=== PATIENT | female | born 1955 | race Caucasian/White ===

== ENCOUNTER → 2016-09-28 | Outpatient (CLI) | payer BC ==
[2015-05-20 15:00] VITALS: BP 131/78
[~2016-09-28] MED LIST: ASPI81TA2 PO; ATOR40TA59 PO; ESTR0.62 PO; INSU100I27 SQ; INSU100V5 IJ; MELO-150 PO; METF500T4 PO
--- NOTE | 2016-09-28 09:08 | KCIC ---
PROCEDURE Right lower extremity venous Doppler dated 09/28/2016. HISTORY Swelling and pain right leg. TECHNIQUE Grayscale, color flow and spectral waveform analysis performed. COMPARISON None. FINDINGS Normal compressibility, phasicity and augmentation of flow throughout. No filling defects are seen. IMPRESSION No evidence of right lower extremity deep vein thrombosis. Electronically signed by: Bernabe Kaba (Sep 28, 2016 09:07:12)
== END | disposition home or self-care (01) ==
LOC: KCIC US 07:50
PROVIDERS: ATTEND Nurse Practitioner Family
DX: M79.89 Other specified soft tissue disorders (principal); M79.605 Pain in left leg; M79.604 Pain in right leg
CPT/HCPCS: 93971

== ENCOUNTER 2016-09-30 15:59 | Inpatient (IN) | payer BC ==
[~2016-09-30] VITALS: Ht 160 cm; Wt 111.1 kg
[2016-09-30] MEDS ORDERED: ONDANSETRON PF 4 MG/2 ML VIAL. IV PRN ×2 (18:00→19:00)
[2016-09-30] MEDS ORDERED: FENTANYL PF 100 MCG/2 ML VIAL. IV PRN (18:00)
--- NOTE | 2016-09-30 18:06 | PHYS DOC ---
Past Medical History Past Medical History: Depression, Diabetes-Type II Past Surgical History: Hysterectomy Additional Past Surgical Histo: L elbow, carpal tunnel L arm, L index finger lypoma, skin cancer nose, Alcohol Use: Rarely Drug Use: None Adult General Chief Complaint Chief Complaint: LOWER EXT PAIN HPI HPI 61-year-old female presenting to the emergency department today with right lower extremity pain with worsening redness swelling and warmth to touch. She had been previously seen and prescribed antibiotics. She reports a negative ultrasound which was evaluated for DVT. She states that the antibiotics helped and then her rash began to get worse even on antibiotics. She describes the pain as sharp nonradiating moderate to severe and without alleviating factors. She denies any fevers at home or chills. Review of Systems Review of Systems ROS negative for chest pain shortness of breath abdominal pain nausea vomiting fevers or chills. All other review of systems is negative unless otherwise noted in history of present illness. Current Medications Current Medications Current Medications Medications (Trade) Dose Ordered Sig/Royer Start Time Stop Time Status Last Admin Dose Admin Fentanyl Citrate 50 mcg 50 mcg PRN Q2HR PRN 09/30/16 18:00 10/01/16 17:59 Ondansetron HCl (Zofran) 4 mg PRN Q8HRS PRN 09/30/16 18:00 10/01/16 17:59 Vancomycin HCl (Vanco Per Pharmacy) 1 each PRN DAILY PRN 09/30/16 18:00 UNV Vancomycin HCl/ Sodium Chloride (Iv Sodium Chloride 0.9% 500ml Bag) 500 ml @ 250 mls/hr 1X ONCE 09/30/16 18:30 09/30/16 20:29 Allergies Allergies Allergies Coded Allergies Type Severity Reaction Last Updated Verified morphine Allergy Mild hallucinations 05/19/15 No Physical Exam Physical Exam Constitutional: Well developed, well nourished, no acute distress, non-toxic appearance. HENT: Normocephalic, atraumatic, bilateral external ears normal, oropharynx moist, no oral exudates, nose normal. [] Eyes: PERRLA, EOMI, conjunctiva normal, no discharge. [] Neck: Normal range of motion, no tenderness, supple, no stridor. Cardiovascular:Heart rate regular rhythm, no murmur [] Lungs & Thorax: Bilateral breath sounds clear to auscultation [] Abdomen: Bowel sounds normal, soft, no tenderness, no masses, no pulsatile masses. Skin: Warm, dry, no erythema, no rash. [] Back: No tenderness, no CVA tenderness. [] Extremities: The patient's right lower extremity is warm and well perfused with palpable pulse. Normal neurovascular status present. 2 second cap refill. She has a cellulitis around the right lower leg which is warm to touch and has swelling of the lower extremity. Nontender along the venous system. Neurologic: Alert and oriented X 3, normal motor function, normal sensory function, no focal deficits noted. [] Psychologic: Affect normal, judgement normal, mood normal. [] Current Patient Data Vital Signs Vital Signs Date Time Temp Pulse Resp B/P Pulse Ox O2 Delivery O2 Flow Rate FiO2 09/30/16 17:26 98.1 77 18 188/89 97 Room Air 98.1 EKG EKG [] Radiology/Procedures Radiology/Procedures [] Course & Med Decision Making Course & Med Decision Making Pertinent Labs and Imaging studies reviewed. (See chart for details) 61-year-old female presenting to the emergency department today with worsening redness and rash recently prescribed antibiotics for acute cellulitis. She reported a negative ultrasound at an outpatient facility. She reports even on antibiotics getting worse. On evaluation here her vital signs were unremarkable. Physical exam showed acute cellulitis of the right lower extremity. Given the patient's refraction to antibiotics orally the patient was given IV vancomycin on ultrasound was ordered and an MRI of the tibia-fibula to evaluate for possible underlying osteomyelitis. The patient was then admitted for further evaluation workup and care. Dragon Disclaimer Dragon Disclaimer This electronic medical record was generated, in whole or in part, using a voice recognition dictation system. Departure Departure Impression: Primary Impression: Cellulitis of right lower leg Additional Impression: Failure of outpatient treatment Disposition: ADMITTED INPATIENT Condition: STABLE Referrals: RODRIGUEZ CARL APRN (PCP) Problem Qualifiers JAQUELIN SHANKAR MD Sep 30, 2016 18:06
[2016-09-30] MEDS ORDERED: VANCOMYCIN 2 GM in IV NORMAL SALINE 500ML BAG 500 ML IV ONE (18:30)
[2016-09-30 18:51] LABS: BASO # 0.1 x10^3/uL (0.0-0.2); BASO % 1 % (0-3); EOS % 7 % (0-3); HEMATOCRIT 39.9 % (36.0-47.0); HEMOGLOBIN 13.3 g/dL (12.0-15.5); LYMPH # 2.8 x10^3/uL (1.0-4.8); LYMPH % 43 % (24-48); MEAN CORPUSCULAR HEMOGLOBIN 28 pg (25-35); MEAN CORPUSCULAR HGB CONC 33 g/dL (31-37); MEAN CORPUSCULAR VOLUME 84 fL (79-100); MONO % 6 % (0-9); NEUT % 44 % (31-73); PLATELET COUNT 148 x10^3/uL (140-400); RED BLOOD COUNT 4.75 x10^6/uL (3.50-5.40); RED CELL DISTRIBUTION WIDTH 13.8 % (11.5-14.5); WHITE BLOOD COUNT 6.5 x10^3/uL (4.0-11.0)
[2016-09-30] MEDS ORDERED: DEXTROSE 50% 25 GM / 50ML DISP.SYRIN. IV PRN (19:00)
[2016-09-30 19:02] LABS: CALCIUM 8.8 mg/dL (8.5-10.1); CREATININE 0.5 mg/dL (0.6-1.0); GFR 125.4; POTASSIUM 3.9 mmol/L (3.5-5.1)
[2016-09-30 19:04] LABS: C-REACTIVE PROTEIN 4.5 mg/L (0-3.3)
--- NOTE | 2016-09-30 19:06 | PDOC1 ---
History and Physical Date of Admission Date of Admission 09/30/16 Identification/Chief Complaint Chief Complaint bl leg pain Problems: Source Source: Chart review, Patient History of Present Illness History of Present Illness HPI HPI 61-year-old female presenting to the emergency department today with right lower extremity pain. Pt has been having bl legs cellulitis for 2 months, now left leg much better, but right leg swollen , more pain, redness is better. She took keflex 2 times ( each time 1w to 10ds), it worked well for 1st time, but as per pt, she took keflex bid. no fever, chills, + nausea. had DVt checked , neg. She states that the antibiotics helped and then her rash began to get worse even on antibiotics. Past Medical History Cardiovascular: HTN, Hyperlipidemia CENTRAL NERVOUS SYSTEM: Other GI: No pertinent hx Heme/Onc: No pertinent hx Hepatobiliary: No pertinent hx Psych: Anxiety Infectious disease: No pertinent hx Renal/: No pertinent hx Endocrine: Diabetes Past Surgical History Past Surgical History: Tubal Ligation, Hysterectomy, Other Family History Family History: Hypertension Social History Smoke: No ALCOHOL: none Drugs: None Current Problem List Problem List Problems Medical Problems: (1) Cellulitis of right lower leg Status: Acute (2) Failure of outpatient treatment Status: Acute Current Medications Current Medications Current Medications Medications (Trade) Dose Ordered Sig/Royer Start Time Stop Time Status Last Admin Dose Admin Aspirin (Children'S Aspirin) 81 mg DAILY 10/01/16 09:00 UNV Atorvastatin Calcium (Lipitor) 40 mg DAILY 10/01/16 09:00 UNV Fentanyl Citrate 50 mcg 50 mcg PRN Q2HR PRN 09/30/16 18:00 10/01/16 17:59 09/30/16 18:33 50 MCG Insulin Detemir (Levemir) 15 units HS 09/30/16 21:00 UNV Metformin HCl (Glucophage) 500 mg BID 09/30/16 21:00 UNV Ondansetron HCl (Zofran) 4 mg PRN Q8HRS PRN 09/30/16 18:00 10/01/16 17:59 09/30/16 18:31 4 MG Vancomycin HCl (Vanco Per Pharmacy) 1 each PRN DAILY PRN 09/30/16 18:00 UNV Vancomycin HCl/ Sodium Chloride (Iv Sodium Chloride 0.9% 500ml Bag) 500 ml @ 250 mls/hr 1X ONCE 09/30/16 18:30 09/30/16 20:29 09/30/16 18:36 250 MLS/HR Allergies Allergies Allergies Coded Allergies Type Severity Reaction Last Updated Verified morphine Allergy Mild hallucinations 05/19/15 No ROS Review of System CONSTITUTIONAL: No fever or chills EYES: No recent changes SKIN: No rash or itching CARDIOVASCULAR: No chest pain, syncope, palpitations, or edema RESPIRATORY: No SOB or cough GASTROINTESTINAL: No nausea, vomiting or abdominal pain NEUROLOGICAL: No headaches or weakness ENDOCRINE: No cold or heat intolerance GENITOURINARY: No urgency or frequency of urination MUSCULOSKELETAL: No back pain or joint pain LYMPHATICS: No enlarged lymph nodes PSYCHIATRIC: No anxiety or depression Physical Exam Physical Exam GEN.: No apparent distress. Alert and oriented. HEENT: Head is normocephalic, atraumatic NECK: Supple. LUNGS: Clear to auscultation. HEART: RRR, S1, S2 present. Peripheral pulses intact ABDOMEN: Soft, nontender. Positive bowel sounds. EXTREMITIES: Without any cyanosis. left leg mild redness. Right leg severe swollen, mild erythematous, with tenderness. NEUROLOGIC: Normal speech, normal tone PSYCHIATRIC: Normal affect, normal mood. SKIN: No ulcerations Vitals Vitals Vital Signs Date Time Temp Pulse Resp B/P Pulse Ox O2 Delivery O2 Flow Rate FiO2 09/30/16 18:33 20 96 Room Air 09/30/16 17:26 98.1 77 188/89 98.1 Labs Labs Laboratory Tests Test 09/30/16 18:40 White Blood Count 6.5x10^3/uL (4.0-11.0) Red Blood Count 4.75x10^6/uL (3.50-5.40) Hemoglobin 13.3g/dL (12.0-15.5) Hematocrit 39.9% (36.0-47.0) Mean Corpuscular Volume 84fL (79-100) Mean Corpuscular Hemoglobin 28pg (25-35) Mean Corpuscular Hemoglobin Concent 33g/dL (31-37) Red Cell Distribution Width 13.8% (11.5-14.5) Platelet Count 148x10^3/uL (140-400) Neutrophils (%) (Auto) 44% (31-73) Lymphocytes (%) (Auto) 43% (24-48) Monocytes (%) (Auto) 6% (0-9) Eosinophils (%) (Auto) 7% (0-3) Basophils (%) (Auto) 1% (0-3) Neutrophils # (Auto) 2.9x10^3uL (1.8-7.7) Lymphocytes # (Auto) 2.8x10^3/uL (1.0-4.8) Monocytes # (Auto) 0.4x10^3/uL (0.0-1.1) Eosinophils # (Auto) 0.4x10^3/uL (0.0-0.7) Basophils # (Auto) 0.1x10^3/uL (0.0-0.2) Laboratory Tests Test 09/30/16 18:40 White Blood Count 6.5x10^3/uL (4.0-11.0) Red Blood Count 4.75x10^6/uL (3.50-5.40) Hemoglobin 13.3g/dL (12.0-15.5) Hematocrit 39.9% (36.0-47.0) Mean Corpuscular Volume 84fL (79-100) Mean Corpuscular Hemoglobin 28pg (25-35) Mean Corpuscular Hemoglobin Concent 33g/dL (31-37) Red Cell Distribution Width 13.8% (11.5-14.5) Platelet Count 148x10^3/uL (140-400) Neutrophils (%) (Auto) 44% (31-73) Lymphocytes (%) (Auto) 43% (24-48) Monocytes (%) (Auto) 6% (0-9) Eosinophils (%) (Auto) 7% (0-3) Basophils (%) (Auto) 1% (0-3) Neutrophils # (Auto) 2.9x10^3uL (1.8-7.7) Lymphocytes # (Auto) 2.8x10^3/uL (1.0-4.8) Monocytes # (Auto) 0.4x10^3/uL (0.0-1.1) Eosinophils # (Auto) 0.4x10^3/uL (0.0-0.7) Basophils # (Auto) 0.1x10^3/uL (0.0-0.2) VTE Prophylaxis Ordered VTE Prophylaxis Devices: Yes VTE Pharmacological Prophylaxi: Yes Assessment/Plan Assessment/Plan 1. right leg cellulitis, failed outside po treatment 2. dm2 3. htn 4. depression 5. obesity, bmi 37. plan: 1. id consult 2. got vanco in ER, add merropenum 3. cont home meds levemir 15u qhs, ssi 4. labs pending bcx done dvt ppx pain control. side affect to morphine with hallucination. leg MRI pending PTOT JOSÉ PAREDES MD Sep 30, 2016 19:06
[2016-09-30] MEDS ORDERED: MEROPENEM 500 MG in IV NORMAL SALINE 50ML 50 ML IV ONE (19:15)
[2016-09-30] MEDS: VANCOMYCIN PER PHARMACY MC PRN ×2 (20:03→20:16)
--- NOTE | 2016-09-30 20:12 | ACF ---
Admission Forms Criteria CELLULITIS Clinical Indications for Admission to Inpatient Care (Place 'X' for any and all applicable criteria): Admission is indicated for ANY ONE of the following(1)(2)(3)(4)(5): [ ]I. Limb-threatening infection [ ]II. High-risk comorbid condition as indicated by ANY ONE of the following: [ ]a) Uncontrolled diabetes (eg, HbA1c greater than 10% (0.1)) [ ]b) Cirrhosis [ ]c) Neutropenia [ ]d) Asplenia [ ]e) Immunosuppression [ ]f) Symptomatic heart failure [ ]III. Failure of outpatient therapy as indicated by ALL of the following: [ ]a) Progression or no improvement after adequate trial (minimum of 48 hours, with longer period for stable lower extremity infection) [ ]b) Adequate antibiotic regimen as indicated by use of ANY ONE of the following: [ ]i) First-generation cephalosporin (e.g., cephalexin) [ ]ii) Antistaphylococcal penicillin (e.g., dicloxacillin) [ ]iii) Penicillin-allergic patient regimen (clindamycin, extended-spectrum fluoroquinolone, or doxycycline) [ ]iv) Resistant organism (eg, methicillin-resistant Staphylococcus aureus) regimen (6) [ ]c) Outpatient intravenous therapy regimen is not appropriate due to ANY ONE of the following. (7)(8)(9)(10): [ ]i) It was tried and was not successful (eg, progression of infection). [ ]ii) It is not available or cannot be arranged in a clinically appropriate time frame (e.g., the next day). [ ]iii) Clinical presentation (eg, acuity of infection, rapidity of progression, confirmed or suspected bacteremia) is judged to require ALL of the following: [ ]1) Immediate initiation of intravenous therapy ( eg, cannot wait for next day) [ ]2) Intensity of patient monitoring and observation (eg, vital sign measurement, checks for infection progression) that cannot be provided at other than inpatient level of care [ ]IV. Mental status changes [ ]V. Bacteremia [ ]. Hemodynamic instability [ ]VII. Suspected necrotizing soft tissue infection (e.g., gas in tissue)(11)( 12) [ ]VIII. Orbital infection (13)(14) [ ]IX. Associated surgical procedure (e.g., abscess drainage, debridement) not amenable to outpatient, emergency department, or observation care [ ]X. Cutaneous gangrene [ ]XI. High fever (temperature greater than 39.5 degrees C (103.1 degrees F) (oral)) not responsive to outpatient, emergency department, or observation care therapy [ X]XIII. Inpatient admission required rather than observation care (Also use Cellulitis: Observation Care as appropriate) because of ANY ONE of the following : [ ]a) Periorbital or perineal infection that is severe or worsening [X ]b) Severe pain requiring acute inpatient management [ ]c) IV fluid to replace significant ongoing (e.g., for over 24 hours) losses (greater than 3L/m2 per day) [ ]d) Compartment syndrome monitoring (17) [ ]e) Strict or protective (eg, laminar flow) isolation [ ]f) Urgent debridement or skin grafting [ ]g) Bone or joint debridement [ ]h) Immediate inpatient surgery [ ]i) Other condition, treatment or monitoring requiring inpatient admission Extended stay beyond goal length of stay may be needed for (1)(18): [ ]a) Necrotizing soft tissue infection or fasciitis [ ]b) Gram-negative infection [ ]c) Methicillin-resistant Staphylococcal aureus (MRSA) infection [ ]d) Peripheral venous insufficiency with cellulitis [ ]e) Extensive edema [ ]f) Sepsis or continued Hemodynamic instability [ ]g) Continued high fever or mental status change [ ]h) Bacteremia [ ]i) Active serious comorbid conditions ( eg, heart failure, renal insufficiency) The original [facility] content created by [employer] has been revised. The portions of the content which have been revised are identified through the use of italic text or in bold, and [facility] has neither reviewed nor approved the modified material. All other unmodified content is copyright [email or web address] Please see references footnoted in the original [facility] edition 2016 Admission Criteria Met?: Yes JAMIL DALY Sep 30, 2016 20:12
[2016-09-30] MEDS: METFORMIN 500 MG TABLET. PO SCH (21:58)
[2016-09-30] MEDS: OXYCODONE IR 5 MG TABLET. PO PRN (21:59)
[2016-09-30] MEDS: ATORVASTATIN CALCIUM 40 MG TABLET. PO SCH (21:59)
[2016-09-30] MEDS: INSULIN DETEMIR 300 UNITS/3 ML INSULN.PEN. SQ SCH (22:03)
[2016-09-30 22:30] VITALS: BP 126/68
[2016-10-01] MEDS: HYDROMORPHONE 2 MG/ML VIAL. IV PRN (01:27)
[2016-10-01 03:00] VITALS: BP 129/73
[2016-10-01 04:48] LABS: BASO % 1 % (0-3); EOS % 6 % (0-3); HEMATOCRIT 40.5 % (36.0-47.0); HEMOGLOBIN 13.3 g/dL (12.0-15.5); LYMPH # 1.8 x10^3/uL (1.0-4.8); LYMPH % 29 % (24-48); MEAN CORPUSCULAR HEMOGLOBIN 28 pg (25-35); MEAN CORPUSCULAR HGB CONC 33 g/dL (31-37); MEAN CORPUSCULAR VOLUME 84 fL (79-100); MONO % 6 % (0-9); NEUT % 59 % (31-73); PLATELET COUNT 136 x10^3/uL (140-400); RED BLOOD COUNT 4.82 x10^6/uL (3.50-5.40); RED CELL DISTRIBUTION WIDTH 13.4 % (11.5-14.5); WHITE BLOOD COUNT 6.2 x10^3/uL (4.0-11.0)
[2016-10-01 05:21] LABS: CALCIUM 8.5 mg/dL (8.5-10.1); CREATININE 0.5 mg/dL (0.6-1.0); GFR 125.4; POTASSIUM 4.2 mmol/L (3.5-5.1)
[2016-10-01] MEDS: MEROPENEM 500 MG in IV NORMAL SALINE 50ML 50 ML IV SCH ×3 (05:59→21:09)
[2016-10-01] MEDS: VANCOMYCIN 1.5 GM in IV NORMAL SALINE 500ML BAG 500 ML IV SCH ×2 (06:00→17:43)
[2016-10-01] MEDS: OXYCODONE IR 5 MG TABLET. PO PRN ×3 (06:39→18:01)
[2016-10-01 07:00] VITALS: BP 103/54
[2016-10-01] MEDS: METFORMIN 500 MG TABLET. PO SCH ×2 (09:25→17:42)
[2016-10-01] MEDS: ACETAMINOPHEN 325 MG TABLET. PO PRN ×2 (09:25→17:59)
[2016-10-01] MEDS: ASPIRIN 81 MG TAB.CHEW PO SCH (09:25)
[2016-10-01] MEDS: INSULIN ASPART 300 UNITS/3 ML INSULN.PEN SQ SCH ×3 (09:30→17:51)
[2016-10-01 11:00] VITALS: BP 119/71
--- NOTE | 2016-10-01 11:29 | PDOC ---
PROGRESS NOTES Chief Complaint Chief Complaint 1. right leg cellulitis, failed outside po treatment 2. dm2 3. htn 4. depression 5. obesity, bmi 37. History of Present Illness History of Present Illness Pt seen and examined VSS TAMELA RN Vitals Vitals Vital Signs Date Time Temp Pulse Resp B/P Pulse Ox O2 Delivery O2 Flow Rate FiO2 10/01/16 11:00 97.9 83 14 119/71 96 Room Air 97.9 Physical Exam General: Alert, Oriented X3, Cooperative Heart: Regular rate, Normal S1, Normal S2 Lungs: Clear, Wheezing Abdomen: Normal bowel sounds, Soft Extremities: Other (Both LE with cellulitis) Skin: No breakdown Labs LABS Laboratory Tests Test 09/30/16 18:40 09/30/16 21:13 10/01/16 04:15 10/01/16 07:46 White Blood Count 6.5x10^3/uL (4.0-11.0) 6.2x10^3/uL (4.0-11.0) Red Blood Count 4.75x10^6/uL (3.50-5.40) 4.82x10^6/uL (3.50-5.40) Hemoglobin 13.3g/dL (12.0-15.5) 13.3g/dL (12.0-15.5) Hematocrit 39.9% (36.0-47.0) 40.5% (36.0-47.0) Mean Corpuscular Volume 84fL (79-100) 84fL (79-100) Mean Corpuscular Hemoglobin 28pg (25-35) 28pg (25-35) Mean Corpuscular Hemoglobin Concent 33g/dL (31-37) 33g/dL (31-37) Red Cell Distribution Width 13.8% (11.5-14.5) 13.4% (11.5-14.5) Platelet Count 148x10^3/uL (140-400) 136x10^3/uL (140-400) Neutrophils (%) (Auto) 44% (31-73) 59% (31-73) Lymphocytes (%) (Auto) 43% (24-48) 29% (24-48) Monocytes (%) (Auto) 6% (0-9) 6% (0-9) Eosinophils (%) (Auto) 7% (0-3) 6% (0-3) Basophils (%) (Auto) 1% (0-3) 1% (0-3) Neutrophils # (Auto) 2.9x10^3uL (1.8-7.7) 3.7x10^3uL (1.8-7.7) Lymphocytes # (Auto) 2.8x10^3/uL (1.0-4.8) 1.8x10^3/uL (1.0-4.8) Monocytes # (Auto) 0.4x10^3/uL (0.0-1.1) 0.4x10^3/uL (0.0-1.1) Eosinophils # (Auto) 0.4x10^3/uL (0.0-0.7) 0.3x10^3/uL (0.0-0.7) Basophils # (Auto) 0.1x10^3/uL (0.0-0.2) 0.0x10^3/uL (0.0-0.2) Erythrocyte Sedimentation Rate 8 (0-25) Sodium Level 137mmol/L (136-145) 135mmol/L (136-145) Potassium Level 3.9mmol/L (3.5-5.1) 4.2mmol/L (3.5-5.1) Chloride Level 101mmol/L (98-107) 101mmol/L (98-107) Carbon Dioxide Level 29mmol/L (21-32) 27mmol/L (21-32) Anion Gap 7 (6-14) 7 (6-14) Blood Urea Nitrogen 12mg/dL (7-20) 11mg/dL (7-20) Creatinine 0.5mg/dL (0.6-1.0) 0.5mg/dL (0.6-1.0) Estimated GFR (Cockcroft-Gault) 125.4 125.4 Glucose Level 267mg/dL (70-99) 327mg/dL (70-99) Calcium Level 8.8mg/dL (8.5-10.1) 8.5mg/dL (8.5-10.1) C-Reactive Protein, Quantitative 4.5mg/L (0-3.3) Glucose (Fingerstick) 243mg/dL (70-99) 294mg/dL (70-99) Review of Systems Review of Systems co leg rash co weakness Assessment and Plan Assessmemt and Plan Problems Medical Problems: (1) Cellulitis of right lower leg Status: Acute (2) Failure of outpatient treatment Status: Acute 1. right leg cellulitis, failed outside po treatment 2. dm2 3. htn 4. depression 5. obesity, bmi 37. plan: 1. id consult 2. got vanco in ER, add merropenum 3. cont home meds levemir 15u qhs, ssi 4. labs pending bcx done dvt ppx pain control. side affect to morphine with hallucination. leg MRI pending PTOT Problems: Comment Review of Relevant I have reviewed the following items kota (where applicable) has been applied. Labs Laboratory Tests Test 09/30/16 18:40 09/30/16 21:13 10/01/16 04:15 10/01/16 07:46 White Blood Count 6.5x10^3/uL (4.0-11.0) 6.2x10^3/uL (4.0-11.0) Red Blood Count 4.75x10^6/uL (3.50-5.40) 4.82x10^6/uL (3.50-5.40) Hemoglobin 13.3g/dL (12.0-15.5) 13.3g/dL (12.0-15.5) Hematocrit 39.9% (36.0-47.0) 40.5% (36.0-47.0) Mean Corpuscular Volume 84fL (79-100) 84fL (79-100) Mean Corpuscular Hemoglobin 28pg (25-35) 28pg (25-35) Mean Corpuscular Hemoglobin Concent 33g/dL (31-37) 33g/dL (31-37) Red Cell Distribution Width 13.8% (11.5-14.5) 13.4% (11.5-14.5) Platelet Count 148x10^3/uL (140-400) 136x10^3/uL (140-400) Neutrophils (%) (Auto) 44% (31-73) 59% (31-73) Lymphocytes (%) (Auto) 43% (24-48) 29% (24-48) Monocytes (%) (Auto) 6% (0-9) 6% (0-9) Eosinophils (%) (Auto) 7% (0-3) 6% (0-3) Basophils (%) (Auto) 1% (0-3) 1% (0-3) Neutrophils # (Auto) 2.9x10^3uL (1.8-7.7) 3.7x10^3uL (1.8-7.7) Lymphocytes # (Auto) 2.8x10^3/uL (1.0-4.8) 1.8x10^3/uL (1.0-4.8) Monocytes # (Auto) 0.4x10^3/uL (0.0-1.1) 0.4x10^3/uL (0.0-1.1) Eosinophils # (Auto) 0.4x10^3/uL (0.0-0.7) 0.3x10^3/uL (0.0-0.7) Basophils # (Auto) 0.1x10^3/uL (0.0-0.2) 0.0x10^3/uL (0.0-0.2) Erythrocyte Sedimentation Rate 8 (0-25) Sodium Level 137mmol/L (136-145) 135mmol/L (136-145) Potassium Level 3.9mmol/L (3.5-5.1) 4.2mmol/L (3.5-5.1) Chloride Level 101mmol/L (98-107) 101mmol/L (98-107) Carbon Dioxide Level 29mmol/L (21-32) 27mmol/L (21-32) Anion Gap 7 (6-14) 7 (6-14) Blood Urea Nitrogen 12mg/dL (7-20) 11mg/dL (7-20) Creatinine 0.5mg/dL (0.6-1.0) 0.5mg/dL (0.6-1.0) Estimated GFR (Cockcroft-Gault) 125.4 125.4 Glucose Level 267mg/dL (70-99) 327mg/dL (70-99) Calcium Level 8.8mg/dL (8.5-10.1) 8.5mg/dL (8.5-10.1) C-Reactive Protein, Quantitative 4.5mg/L (0-3.3) Glucose (Fingerstick) 243mg/dL (70-99) 294mg/dL (70-99) Laboratory Tests Test 09/30/16 18:40 09/30/16 21:13 10/01/16 04:15 10/01/16 07:46 White Blood Count 6.5x10^3/uL (4.0-11.0) 6.2x10^3/uL (4.0-11.0) Red Blood Count 4.75x10^6/uL (3.50-5.40) 4.82x10^6/uL (3.50-5.40) Hemoglobin 13.3g/dL (12.0-15.5) 13.3g/dL (12.0-15.5) Hematocrit 39.9% (36.0-47.0) 40.5% (36.0-47.0) Mean Corpuscular Volume 84fL (79-100) 84fL (79-100) Mean Corpuscular Hemoglobin 28pg (25-35) 28pg (25-35) Mean Corpuscular Hemoglobin Concent 33g/dL (31-37) 33g/dL (31-37) Red Cell Distribution Width 13.8% (11.5-14.5) 13.4% (11.5-14.5) Platelet Count 148x10^3/uL (140-400) 136x10^3/uL (140-400) Neutrophils (%) (Auto) 44% (31-73) 59% (31-73) Lymphocytes (%) (Auto) 43% (24-48) 29% (24-48) Monocytes (%) (Auto) 6% (0-9) 6% (0-9) Eosinophils (%) (Auto) 7% (0-3) 6% (0-3) Basophils (%) (Auto) 1% (0-3) 1% (0-3) Neutrophils # (Auto) 2.9x10^3uL (1.8-7.7) 3.7x10^3uL (1.8-7.7) Lymphocytes # (Auto) 2.8x10^3/uL (1.0-4.8) 1.8x10^3/uL (1.0-4.8) Monocytes # (Auto) 0.4x10^3/uL (0.0-1.1) 0.4x10^3/uL (0.0-1.1) Eosinophils # (Auto) 0.4x10^3/uL (0.0-0.7) 0.3x10^3/uL (0.0-0.7) Basophils # (Auto) 0.1x10^3/uL (0.0-0.2) 0.0x10^3/uL (0.0-0.2) Erythrocyte Sedimentation Rate 8 (0-25) Sodium Level 137mmol/L (136-145) 135mmol/L (136-145) Potassium Level 3.9mmol/L (3.5-5.1) 4.2mmol/L (3.5-5.1) Chloride Level 101mmol/L (98-107) 101mmol/L (98-107) Carbon Dioxide Level 29mmol/L (21-32) 27mmol/L (21-32) Anion Gap 7 (6-14) 7 (6-14) Blood Urea Nitrogen 12mg/dL (7-20) 11mg/dL (7-20) Creatinine 0.5mg/dL (0.6-1.0) 0.5mg/dL (0.6-1.0) Estimated GFR (Cockcroft-Gault) 125.4 125.4 Glucose Level 267mg/dL (70-99) 327mg/dL (70-99) Calcium Level 8.8mg/dL (8.5-10.1) 8.5mg/dL (8.5-10.1) C-Reactive Protein, Quantitative 4.5mg/L (0-3.3) Glucose (Fingerstick) 243mg/dL (70-99) 294mg/dL (70-99) Medications Current Medications Vancomycin HCl (Vanco Per Pharmacy) 1 each PRN DAILY PRN MC SEE COMMENTS Last administered on 09/30/16t 20:16; Start 09/30/16 at 18:00 Ondansetron HCl (Zofran) 4 mg PRN Q8HRS PRN IV NAUSEA/VOMITING Last administered on 09/30/16 18:31; Start 09/30/16 at 18:00; Stop 10/01/16 at 17:59 Fentanyl Citrate 50 mcg 50 mcg PRN Q2HR PRN IV PAIN Last administered on 18:33; Start 09/30/16 at 18:00; Stop 10/01/16 at 17:59 Vancomycin HCl/ Sodium Chloride (Iv Sodium Chloride 0.9% 500ml Bag) 500 ml @ 250 mls/hr 1X ONCE IV Last administered on 09/30/16 18:36; Start 09/30/16 at 18:30; Stop 09/30/16 at 20:29; Status DC Aspirin (Children'S Aspirin) 81 mg DAILY PO Last administered on 10/01/16 09: 25; Start 10/01/16 at 09:00 Atorvastatin Calcium (Lipitor) 40 mg QHS PO Last administered on 09/30/16 21: 59; Start 09/30/16 at 21:00 Insulin Detemir (Levemir) 15 units HS SQ Last administered on 09/30/16 22:03; Start 09/30/16 at 21:00 Metformin HCl 500 mg 500 mg BIDWMEALS PO Last administered on 10/01/16 09:25; Start 09/30/16 at 21:00 Meropenem/Sodium Chloride (Merrem/Iv Sodium Chloride 0.9% 50ml) 50 ml @ 100 mls /hr Q8HRS IV Last administered on 10/01/16 05:59; Start 10/01/16 at 06:00 Acetaminophen (Tylenol) 650 mg PRN Q6HRS PRN PO FEVER Last administered on 10/01 09:25; Start 09/30/16 at 19:00 Ondansetron HCl (Zofran) 4 mg PRN Q4HRS PRN IV NAUSEA/VOMITING; Start 09/30/16 at 19:00 Oxycodone HCl (Roxicodone) 5 mg PRN Q4HRS PRN PO PAIN Last administered on 10/01 06:39; Start 09/30/16 at 19:00 Hydromorphone HCl (Dilaudid) 1 mg PRN Q4HRS PRN IV PAIN Last administered on 01:27; Start 09/30/16 at 19:00 Insulin Aspart (Novolog) 0-9 UNITS TIDWMEALS SQ Last administered on 10/01/16 09:30; Start 10/01/16 at 08:00 Dextrose 12.5 gm 12.5 gm PRN Q15MIN PRN IV SEE COMMENTS; Start 09/30/16 at 19: 00 Meropenem 500 mg/ Sodium Chloride 50 ml @ 100 mls/hr 1X ONCE IV Last administered on 09/30/16 21:58; Start 09/30/16 at 19:15; Stop 09/30/16 at 19:44 ; Status DC Vancomycin HCl/ Sodium Chloride (Iv Sodium Chloride 0.9% 500ml Bag) 500 ml @ 250 mls/hr Q12H IV Last administered on 10/01/16 06:00; Start 10/01/16 at 06: 00 Vancomycin HCl 1 each 1X ONCE MC ; Start 10/02/16 at 05:30; Stop 10/02/16 at 05 :31 Active Scripts Active Reported Levemir Flextouch (Insulin Detemir) 100 Unit/1 Ml Insuln.pen 15 Unit SQ HS Metformin Hcl 500 Mg Tablet 2 Tab PO BID Premarin (Estrogens, Conjugated) 0.625 Mg Tablet 1 Tab PO DAILY Meloxicam 15 Mg Tablet 1 Tab PO DAILY Atorvastatin Calcium 40 Mg Tablet 1 Tab PO DAILY Vitals/I & O Vital Sign - Last 24 Hours 09/30/16 09/30/16 09/30/16 09/30/16 17:26 18:14 18:33 18:44 Temp 98.1 98.1 Pulse 77 76 80 Resp 18 20 B/P 188/89 191/86 191/106 Pulse Ox 97 97 96 95 O2 Delivery Room Air Room Air Room Air Room Air 09/30/16 09/30/16 09/30/16 09/30/16 19:03 19:14 19:44 21:59 Pulse 78 74 Resp 18 B/P 163/73 157/72 Pulse Ox 95 94 95 95 O2 Delivery Room Air Room Air Room Air 09/30/16 10/01/16 10/01/16 10/01/16 22:30 01:27 01:57 03:00 Temp 97.5 96.1 97.5 96.1 Pulse 76 85 Resp 20 24 18 B/P 126/68 129/73 Pulse Ox 94 94 94 96 O2 Delivery Room Air Room Air 10/01/16 10/01/16 10/01/16 10/01/16 06:39 07:00 07:39 11:00 Temp 100.2 97.9 100.2 97.9 Pulse 92 83 Resp 14 20 14 B/P 103/54 119/71 Pulse Ox 96 96 96 96 O2 Delivery Room Air Room Air Room Air Intake and Output 09/30/16 09/30/16 10/01/16 15:00 23:00 07:00 Intake Total 1210 ml Balance 1210 ml SHARON DYKES III DO Oct 01, 2016 11:29
[2016-10-01 15:00] VITALS: BP 134/73
[2016-10-01] MEDS ORDERED: GADOBUTROL 10 MMOL/10 ML VIAL IV ONE (16:45)
[2016-10-01 19:00] VITALS: BP 112/64
[2016-10-01] MEDS: ATORVASTATIN CALCIUM 40 MG TABLET. PO SCH (21:09)
[2016-10-01] MEDS: INSULIN DETEMIR 300 UNITS/3 ML INSULN.PEN. SQ SCH (21:12)
[2016-10-01 23:00] VITALS: BP 142/76
[2016-10-02] MEDS: HYDROMORPHONE 2 MG/ML VIAL. IV PRN (02:19)
[2016-10-02 02:52] VITALS: BP 155/80
[2016-10-02] MEDS: OXYCODONE IR 5 MG TABLET. PO PRN (05:20)
[2016-10-02] MEDS: MEROPENEM 500 MG in IV NORMAL SALINE 50ML 50 ML IV SCH ×2 (05:21→16:05)
[2016-10-02 07:00] VITALS: BP 160/83
[2016-10-02] MEDS: VANCOMYCIN 1.5 GM in IV NORMAL SALINE 500ML BAG 500 ML IV SCH (08:05)
[2016-10-02] MEDS: INSULIN ASPART 300 UNITS/3 ML INSULN.PEN SQ SCH ×2 (08:13→12:33)
[2016-10-02] MEDS: METFORMIN 500 MG TABLET. PO SCH (08:28)
[2016-10-02] MEDS: ACETAMINOPHEN 325 MG TABLET. PO PRN ×2 (08:28→16:15)
[2016-10-02] MEDS: ASPIRIN 81 MG TAB.CHEW PO SCH (08:28)
[2016-10-02] MEDS: VANCOMYCIN PER PHARMACY MC PRN (08:44)
--- NOTE | 2016-10-02 09:57 | RAD ---
MR of the right calf with gadolinium, 10/01/2016: History: Cellulitis Imaging was performed in axial, coronal and sagittal planes utilizing a variety of imaging sequences including T1-weighted, fat-suppressed T2 weighted and fat-suppressed T1-weighted sequences following IV injection of 10 cc of the Gadavist contrast agent. A marker was placed on the skin surface over the most prominent area of clinical concern medially. There is subcutaneous edema throughout the right lower leg which is most prominent medially. There is streaky postcontrast enhancement in this region. No discrete fluid collection is seen to suggest abscess. No deep extension of this inflammatory process into the musculature is seen. The signal intensity within the gastrocnemius and soleus muscles is abnormal in a pattern indicating extensive fatty infiltration. The anterior musculature is somewhat atrophic but demonstrates a more normal signal intensity. No abnormal signal or enhancement is seen in the visualized portions of the tibia and fibula. IMPRESSION: 1. Subcutaneous edema and streaky enhancement most prominent in the medial calf compatible with the clinical impression of cellulitis. No discrete abscess is identified. 2. Extensive fatty infiltration of the soleus and gastrocnemius muscles most likely on a denervation basis, suggesting proximal nerve injury. This could be related to previous spinal surgery.
[2016-10-02 11:00] VITALS: BP 136/80
--- NOTE | 2016-10-02 14:35 | PDOC ---
PROGRESS NOTES Chief Complaint Chief Complaint 1. right leg cellulitis, failed outside po treatment 2. dm2 3. htn 4. depression 5. obesity, bmi 37. History of Present Illness History of Present Illness Pt seen and examined VSS TAMELA RN MRI does not show Osteo Will dc on po Augmentin Vitals Vitals Vital Signs Date Time Temp Pulse Resp B/P Pulse Ox O2 Delivery O2 Flow Rate FiO2 10/02/16 11:00 98.8 87 20 136/80 94 Room Air 98.8 Physical Exam General: Alert, Oriented X3, Cooperative Heart: Regular rate, Normal S1, Normal S2 Lungs: Clear, Wheezing Abdomen: Normal bowel sounds, Soft Extremities: Other (Both LE with cellulitis) Skin: No breakdown Labs LABS Laboratory Tests Test 10/01/16 17:32 10/01/16 20:55 10/02/16 06:05 10/02/16 07:56 Glucose (Fingerstick) 287mg/dL (70-99) 290mg/dL (70-99) 339mg/dL (70-99) Vancomycin Level Trough 7.5mcg/mL (10.0-20.0) Vancomycin Last Dose Date 10/01/16 Vancomycin Last Dose Time 1800 Test 10/02/16 11:57 Glucose (Fingerstick) 297mg/dL (70-99) Assessment and Plan Assessmemt and Plan Problems Medical Problems: (1) Cellulitis of right lower leg Status: Acute (2) Failure of outpatient treatment Status: Acute Discharge Problems: Comment Review of Relevant I have reviewed the following items kota (where applicable) has been applied. Labs Laboratory Tests Test 09/30/16 18:40 09/30/16 21:13 10/01/16 04:15 10/01/16 07:46 White Blood Count 6.5x10^3/uL (4.0-11.0) 6.2x10^3/uL (4.0-11.0) Red Blood Count 4.75x10^6/uL (3.50-5.40) 4.82x10^6/uL (3.50-5.40) Hemoglobin 13.3g/dL (12.0-15.5) 13.3g/dL (12.0-15.5) Hematocrit 39.9% (36.0-47.0) 40.5% (36.0-47.0) Mean Corpuscular Volume 84fL (79-100) 84fL (79-100) Mean Corpuscular Hemoglobin 28pg (25-35) 28pg (25-35) Mean Corpuscular Hemoglobin Concent 33g/dL (31-37) 33g/dL (31-37) Red Cell Distribution Width 13.8% (11.5-14.5) 13.4% (11.5-14.5) Platelet Count 148x10^3/uL (140-400) 136x10^3/uL (140-400) Neutrophils (%) (Auto) 44% (31-73) 59% (31-73) Lymphocytes (%) (Auto) 43% (24-48) 29% (24-48) Monocytes (%) (Auto) 6% (0-9) 6% (0-9) Eosinophils (%) (Auto) 7% (0-3) 6% (0-3) Basophils (%) (Auto) 1% (0-3) 1% (0-3) Neutrophils # (Auto) 2.9x10^3uL (1.8-7.7) 3.7x10^3uL (1.8-7.7) Lymphocytes # (Auto) 2.8x10^3/uL (1.0-4.8) 1.8x10^3/uL (1.0-4.8) Monocytes # (Auto) 0.4x10^3/uL (0.0-1.1) 0.4x10^3/uL (0.0-1.1) Eosinophils # (Auto) 0.4x10^3/uL (0.0-0.7) 0.3x10^3/uL (0.0-0.7) Basophils # (Auto) 0.1x10^3/uL (0.0-0.2) 0.0x10^3/uL (0.0-0.2) Erythrocyte Sedimentation Rate 8 (0-25) Sodium Level 137mmol/L (136-145) 135mmol/L (136-145) Potassium Level 3.9mmol/L (3.5-5.1) 4.2mmol/L (3.5-5.1) Chloride Level 101mmol/L (98-107) 101mmol/L (98-107) Carbon Dioxide Level 29mmol/L (21-32) 27mmol/L (21-32) Anion Gap 7 (6-14) 7 (6-14) Blood Urea Nitrogen 12mg/dL (7-20) 11mg/dL (7-20) Creatinine 0.5mg/dL (0.6-1.0) 0.5mg/dL (0.6-1.0) Estimated GFR (Cockcroft-Gault) 125.4 125.4 Glucose Level 267mg/dL (70-99) 327mg/dL (70-99) Calcium Level 8.8mg/dL (8.5-10.1) 8.5mg/dL (8.5-10.1) C-Reactive Protein, Quantitative 4.5mg/L (0-3.3) Glucose (Fingerstick) 243mg/dL (70-99) 294mg/dL (70-99) Test 10/01/16 12:40 10/01/16 17:32 10/01/16 20:55 10/02/16 06:05 Glucose (Fingerstick) 327mg/dL (70-99) 287mg/dL (70-99) 290mg/dL (70-99) Vancomycin Level Trough 7.5mcg/mL (10.0-20.0) Vancomycin Last Dose Date 10/01/16 Vancomycin Last Dose Time 1800 Test 10/02/16 07:56 10/02/16 11:57 Glucose (Fingerstick) 339mg/dL (70-99) 297mg/dL (70-99) Laboratory Tests Test 10/01/16 17:32 10/01/16 20:55 10/02/16 06:05 10/02/16 07:56 Glucose (Fingerstick) 287mg/dL (70-99) 290mg/dL (70-99) 339mg/dL (70-99) Vancomycin Level Trough 7.5mcg/mL (10.0-20.0) Vancomycin Last Dose Date 10/01/16 Vancomycin Last Dose Time 1800 Test 10/02/16 11:57 Glucose (Fingerstick) 297mg/dL (70-99) Medications Current Medications Vancomycin HCl (Vanco Per Pharmacy) 1 each PRN DAILY PRN MC SEE COMMENTS Last administered on 10/02/16 08:44; Start 09/30/16 at 18:00 Ondansetron HCl (Zofran) 4 mg PRN Q8HRS PRN IV NAUSEA/VOMITING Last administered on 09/30/16 18:31; Start 09/30/16 at 18:00; Stop 10/01/16 at 17:59 ; Status DC Fentanyl Citrate 50 mcg 50 mcg PRN Q2HR PRN IV PAIN Last administered on 18:33; Start 09/30/16 at 18:00; Stop 10/01/16 at 17:59; Status DC Vancomycin HCl/ Sodium Chloride (Iv Sodium Chloride 0.9% 500ml Bag) 500 ml @ 250 mls/hr 1X ONCE IV Last administered on 09/30/16 18:36; Start 09/30/16 at 18:30; Stop 09/30/16 at 20:29; Status DC Aspirin (Children'S Aspirin) 81 mg DAILY PO Last administered on 10/02/16 08: 28; Start 10/01/16 at 09:00 Atorvastatin Calcium (Lipitor) 40 mg QHS PO Last administered on 10/01/16 21: 09; Start 09/30/16 at 21:00 Insulin Detemir (Levemir) 15 units HS SQ Last administered on 10/01/16 21:12; Start 09/30/16 at 21:00 Metformin HCl 500 mg 500 mg BIDWMEALS PO Last administered on 10/02/16 08:28; Start 09/30/16 at 21:00 Meropenem/Sodium Chloride (Merrem/Iv Sodium Chloride 0.9% 50ml) 50 ml @ 100 mls /hr Q8HRS IV Last administered on 10/02/16 05:21; Start 10/01/16 at 06:00 Acetaminophen (Tylenol) 650 mg PRN Q6HRS PRN PO FEVER Last administered on 10/02 08:28; Start 09/30/16 at 19:00 Ondansetron HCl (Zofran) 4 mg PRN Q4HRS PRN IV NAUSEA/VOMITING Last administered on 10/02/16 08:28; Start 09/30/16 at 19:00 Oxycodone HCl (Roxicodone) 5 mg PRN Q4HRS PRN PO PAIN Last administered on 10/02 05:20; Start 09/30/16 at 19:00 Hydromorphone HCl (Dilaudid) 1 mg PRN Q4HRS PRN IV PAIN Last administered on 02:19; Start 09/30/16 at 19:00 Insulin Aspart (Novolog) 0-9 UNITS TIDWMEALS SQ Last administered on 10/02/16 12:33; Start 10/01/16 at 08:00 Dextrose 12.5 gm 12.5 gm PRN Q15MIN PRN IV SEE COMMENTS; Start 09/30/16 at 19: 00 Meropenem 500 mg/ Sodium Chloride 50 ml @ 100 mls/hr 1X ONCE IV Last administered on 09/30/16 21:58; Start 09/30/16 at 19:15; Stop 09/30/16 at 19:44 ; Status DC Vancomycin HCl/ Sodium Chloride (Iv Sodium Chloride 0.9% 500ml Bag) 500 ml @ 250 mls/hr Q12H IV Last administered on 10/02/16 08:05; Start 10/01/16 at 06: 00; Stop 10/02/16 at 08:41; Status DC Vancomycin HCl 1 each 1X ONCE MC ; Start 10/02/16 at 05:30; Stop 10/02/16 at 05 :31; Status DC Gadobutrol 10 mmol 10 mmol 1X ONCE IV Last administered on 10/01/16 17:00; Start 10/01/16 at 16:45; Stop 10/01/16 at 16:46; Status DC Vancomycin HCl/ Sodium Chloride (Iv Sodium Chloride 0.9% 500ml Bag) 500 ml @ 250 mls/hr Q8H IV ; Start 10/02/16 at 16:00 Vancomycin HCl 1 each 1X ONCE MC ; Start 10/03/16 at 07:30; Stop 10/03/16 at 07 :31 Active Scripts Active Reported Aspirin 81 Mg Tab.chew 1 Tab PO DAILY Levemir Flextouch (Insulin Detemir) 100 Unit/1 Ml Insuln.pen 15 Unit SQ HS Metformin Hcl 500 Mg Tablet 2 Tab PO BID Premarin (Estrogens, Conjugated) 0.625 Mg Tablet 1 Tab PO DAILY Meloxicam 15 Mg Tablet 1 Tab PO DAILY Atorvastatin Calcium 40 Mg Tablet 1 Tab PO DAILY Vitals/I & O Vital Sign - Last 24 Hours 10/01/16 10/01/16 10/01/16 10/01/16 15:00 18:01 19:00 20:00 Temp 97.7 97.9 97.7 97.9 Pulse 83 84 Resp 16 20 18 B/P 134/73 112/64 Pulse Ox 94 94 93 O2 Delivery Room Air Room Air Room Air 10/01/16 10/02/16 10/02/16 10/02/16 23:00 02:19 02:49 02:52 Temp 98.1 97.7 98.1 97.7 Pulse 91 88 Resp 18 18 B/P 142/76 155/80 Pulse Ox 93 93 93 91 O2 Delivery Room Air Room Air Room Air Room Air 10/02/16 10/02/16 10/02/16 10/02/16 05:20 06:20 07:00 08:00 Temp 97.7 97.7 Pulse 79 Resp 18 20 B/P 160/83 Pulse Ox 91 91 100 O2 Delivery Room Air Room Air Room Air Room Air 10/02/16 11:00 Temp 98.8 98.8 Pulse 87 Resp 20 B/P 136/80 Pulse Ox 94 O2 Delivery Room Air Intake and Output 10/01/16 10/01/16 10/02/16 15:00 23:00 07:00 Intake Total 240 ml 1200 ml 550 ml Balance 240 ml 1200 ml 550 ml SHARON DYKES III DO Oct 02, 2016 14:35
[2016-10-02 15:00] VITALS: BP 159/76
[2016-10-02] MEDS ORDERED: VANCOMYCIN 1.5 GM in IV NORMAL SALINE 500ML BAG 500 ML IV SCH (16:00)
[2016-10-02] MEDS ORDERED: OXYC-323 PO (16:42)
[2016-10-02] MEDS ORDERED: AMOX1TAB61 PO (16:45)
--- NOTE | 2016-10-03 20:54 | DS ---
DATE OF DISCHARGE: 10/02/2016 ADMISSION DIAGNOSIS: Cellulitis. DISCHARGE DIAGNOSIS: Resolving cellulitis. HOSPITAL COURSE: The patient is a pleasant 61-year-old female who presented with bilateral lower extremity cellulitis. She was admitted. We gave her IV antibiotics. We checked an MRI to rule out osteo. It was negative, but she does have cellulitis. We discharged her on p.o. antibiotics. DISPOSITION: Home. ACTIVITY: As tolerated. DIET: Low sodium. MEDICATIONS: Please see the MRAD. TOTAL TIME ON DISCHARGE: 32 minutes. SHARON DYKES DO DR: [email or web address] JOB#: [id number] / [id number]
== END 2016-10-02 17:00 | disposition home or self-care (01) | DRG 603 ==
LOC: ER 15:59 → 5 NORTH 17:59
PROVIDERS: ADMIT Internal Medicine; ATTEND Internal Medicine
DX: L03.115 Cellulitis of right lower limb (principal); Z68.41 Body mass index [BMI] 40.0-44.9, adult; E11.9 Type 2 diabetes mellitus without complications; E66.9 Obesity, unspecified; E78.5 Hyperlipidemia, unspecified; F32.9 Major depressive disorder, single episode, unspecified; I10 Essential (primary) hypertension; L03.116 Cellulitis of left lower limb; F41.9 Anxiety disorder, unspecified; Z88.1 Allergy status to other antibiotic agents; Z85.828 Personal history of other malignant neoplasm of skin; Z90.710 Acquired absence of both cervix and uterus; Z82.49 Family history of ischemic heart disease and other diseases of the circulatory system
CPT/HCPCS: 36415; 73723; 80048; 80202; 82947; 85027; 85651; 86140; 96374; 96375; A9585; J1170; J1815; J2185; J2405; J3010; J3370; J7040; 99285-25

== ENCOUNTER → 2017-03-06 | Outpatient (CLI) | payer BC ==
[~2017-03-06] MED LIST changes: +AMOX1TAB61 PO; +ASPI-630 PO; -ASPI81TA2 PO; -MELO-150 PO; +MELO15TA23 PO; +OXYC-323 PO
--- NOTE | 2017-03-06 19:55 | KCIC ---
Bilateral digital screening mammograms: Reason for examination: Routine screening. Comparison is made to previous studies dated 09/18/2015 and 02/11/2014. The skin and nipples show no abnormalities. Nipples continue to be inverted but this is unchanged. No abnormal axillary lymph nodes are seen. The breast parenchyma shows scattered fibroglandular density. (Breast density: Category B.) There is a small nodule consistent with intramammary lymph node in the left breast. A few benign calcifications which are not changed. There are no new dominant masses, suspicious calcifications or architectural distortions. Impression: No evidence of malignancy. Recommend routine screening. BI-RADS Category 2: Benign. "Our facility is accredited by the [employer] Mammography Program." This patient's information has been entered into a reminder system for the patient to be notified with the results of her examination and a target date for the next mammogram. Electronically signed by: Shiela Witt MD (03/06/2017 7:51 PM)
== END | disposition home or self-care (01) ==
LOC: KCIC MAMMO 15:26
PROVIDERS: ATTEND Family Medicine
DX: Z12.31 Encounter for screening mammogram for malignant neoplasm of breast (principal)
CPT/HCPCS: G0202; 77067

== ENCOUNTER → 2018-09-26 | Outpatient (CLI) | payer BC ==
[~2018-09-26] MED LIST changes: +METF500T16 PO; -METF500T4 PO; -OXYC-323 PO; +OXYC1TAB15 PO
--- NOTE | 2018-09-26 16:01 | KCIC ---
Bilateral lower extremity venous duplex study 09/26/2018 3:30 PM Clinical History: Bilateral lower extremity edema. Comparison: None available Technique: Using a combination of real time ultrasound imaging and color-flow and pulse Doppler imaging techniques along with graded compression and augmentation, duplex evaluation of the deep venous system of the both lower extremities was performed. Multiple images were obtained. Findings: There is no sonographic evidence of deep venous thrombosis involving the visualized deep venous structures of either lower extremity. Impression: No evidence of deep venous thrombosis involving either lower extremity Electronically signed by: Coleman Pollock MD (09/26/2018 3:56 PM) [id number]
== END | disposition home or self-care (01) ==
LOC: KCIC US 15:07
PROVIDERS: ATTEND Nurse Practitioner Gerontology
DX: M79.89 Other specified soft tissue disorders (principal)
CPT/HCPCS: 93970

== ENCOUNTER 2019-03-18 12:52 | Emergency (ER) | payer BC ==
[~2019-03-18] VITALS: Ht 167.6 cm; Wt 111.1 kg
[2019-03-18 15:13] LABS: BILIRUBIN,URINE NEGATIVE (NEG); CLARITY,URINE CLEAR; COLOR,URINE YELLOW; NITRITE,URINE NEGATIVE (NEG); PH,URINE 7.5; PROTEIN,URINE NEGATIVE (NEG-TRACE)
--- NOTE | 2019-03-18 15:14 | PHYS DOC ---
Past Medical History Past Medical History: Depression, Diabetes-Type II (SOLEDAD STANLEY APRN) Past Surgical History: Hysterectomy Additional Past Surgical Histo: L elbow, carpal tunnel L arm, L index finger l ypoma, skin cancer nose, (SOLEDAD STANLEY APRN) Alcohol Use: Rarely Drug Use: None (SOLEDAD STANLEY APRN) Adult General Chief Complaint Chief Complaint: ABDOMINAL PAIN HPI HPI 63-year-old female presents to ER via POV for complaints of increased right upper quadrant pain for the past 2 weeks. Patient states she has had gallbladder issues and pain had been more intermittent however in the past 2 weeks pain has become more constant. She reports she has been seen by her PCP for this ongoing issue. Patient states today she had sausage/brat around noon for lunch which caused increased right upper quadrant pain which radiated into her right upper c hest. Patient states she has had multiple episodes of vomiting with diarrhea. She denies fever, bloody stools, chest pain, or palpitations. Reports when she takes a deep breath she does have increased right upper quadrant pain. She reports history of diabetes with blood sugar 160 this morning. Patient also has had 2 mild heart attacks denies stents. (SOLEDAD STANLEY APRN) Review of Systems Review of Systems Constitutional: Denies fever or chills [] Eyes: Denies change in visual acuity, redness, or eye pain [] HENT: Denies nasal congestion or sore throat [] Respiratory: Denies cough or shortness of breath [] Cardiovascular: Reports rt side CP into rt breast/RUQ GI: Denies bloody stools. Reports RUQ pain radiating into rt side chest. Reports N/V/D : Denies dysuria or hematuria [] Musculoskeletal: Denies back pain or joint pain [] Integument: Denies rash or skin lesions [] Neurologic: Denies headache, focal weakness or sensory changes. Denies dizziness Endocrine: Denies polyuria or polydipsia [] All other systems were reviewed and found to be within normal limits, except as documented in this note. (SOLEDAD STANLEY APRN) Current Medications Current Medications Current Medications Medications (Trade) Dose Ordered Sig/Royer Start Time Stop Time Status Last Admin Dose Admin Dicyclomine HCl (Bentyl) 20 mg 1X ONCE 03/18/19 17:30 7/8/19 17:31 DC 03/18/19 17:49 20 MG Fentanyl Citrate (Fentanyl 2ml Vial) 25 mcg 1X ONCE 03/18/19 15:15 03/18/19 15:21 DC 03/18/19 16:05 25 MCG Info (CONTRAST GIVEN -- Rx MONITORING) 1 each PRN DAILY PRN 03/18/19 17:30 03/18/19 18:43 DC Iohexol (Omnipaque 300 Mg/ml) 75 ml 1X ONCE 03/18/19 17:45 03/18/19 17:46 DC 03/18/19 17:32 75 ML Magnesium Oxide (Magnesium Oxide) 400 mg DAILY 03/18/19 17:02 03/18/19 18:43 DC 03/18/19 17:47 400 MG Ondansetron HCl (Zofran) 4 mg 1X ONCE 03/18/19 17:30 03/18/19 17:31 DC 03/18/19 17:48 4 MG Sodium Chloride 1,000 ml @ 1,000 mls/hr 1X ONCE 03/18/19 15:15 03/18/19 16:14 DC 03/18/19 16:02 1,000 MLS/HR (GERALDINE DEGROOT MD) Allergies Allergies Allergies Coded Allergies Type Severity Reaction Last Updated Verified morphine Allergy Intermediate hallucinations 03/18/19 No (GERALDINE DEGROOT MD) Physical Exam Physical Exam Constitutional: Well developed, well nourished, no acute distress, non-toxic appearance. [] HENT: Normocephalic, atraumatic, mucous membranes pink/dry, no oral exudates, nose normal. [] Eyes: Pupils equal, conjunctiva normal, no discharge. [] Neck: Normal range of motion, no tenderness, supple, no stridor. [] Cardiovascular:Heart rate regular rhythm, no murmur [] Lungs & Thorax: Bilateral breath sounds clear to auscultation- resp. equal/nonlabored Abdomen: Bowel sounds normal, soft/obese, diffuse tenderness in mid to rt side abd- no rebound/distention/rigidity, no masses, no pulsatile masses. [] Skin: Warm, dry, no erythema, no rash. [] Back: No tenderness, no CVA tenderness. [] Extremities: No tenderness, no cyanosis, no clubbing, ROM intact, no edema. [] Neurologic: Alert and oriented X 3, normal motor function, normal sensory funct ion, no focal deficits noted. [] Psychologic: Affect normal, judgement normal, mood normal. [] (REFFITT,SOLEDAD Carter APRN) Current Patient Data Vital Signs Vital Signs Date Time Temp Pulse Resp B/P (MAP) Pulse Ox O2 Delivery O2 Flow Rate FiO2 03/18/19 18:07 67 187/80 (115) 98 Room Air 03/18/19 16:05 20 03/18/19 15:19 97.8 97.8 (GERALDINE DEGROOT MD) Lab Values Laboratory Tests Test 03/18/19 14:53 03/18/19 16:02 Urine Collection Type Unknown Urine Color Yellow Urine Clarity Clear Urine pH 7.5 Urine Specific [place] 1.020 Urine Protein Negative mg/dL (NEG-TRACE) Urine Glucose (UA) Negative mg/dL (NEG) Urine Ketones (Stick) Negative mg/dL (NEG) Urine Blood Negative (NEG) Urine Nitrite Negative (NEG) Urine Bilirubin Negative (NEG) Urine Urobilinogen Dipstick 1.0 mg/dL (0.2 mg/dL) Urine Leukocyte Esterase Negative (NEG) Urine RBC 1-2 /HPF (0-2) Urine WBC 1-4 /HPF (0-4) Urine Amorphous Sediment Present /HPF Urine Bacteria Few /HPF (0-FEW) Urine Mucus Mod /LPF White Blood Count 8.6 x10^3/uL (4.0-11.0) Red Blood Count 4.39 x10^6/uL (3.50-5.40) Hemoglobin 12.3 g/dL (12.0-15.5) Hematocrit 36.7 % (36.0-47.0) Mean Corpuscular Volume 84 fL (79-100) Mean Corpuscular Hemoglobin 28 pg (25-35) Mean Corpuscular Hemoglobin Concent 34 g/dL (31-37) Red Cell Distribution Width 14.0 % (11.5-14.5) Platelet Count 143 x10^3/uL (140-400) Neutrophils (%) (Auto) 63 % (31-73) Lymphocytes (%) (Auto) 27 % (24-48) Monocytes (%) (Auto) 5 % (0-9) Eosinophils (%) (Auto) 5 % (0-3) H Basophils (%) (Auto) 1 % (0-3) Neutrophils # (Auto) 5.5 x10^3uL (1.8-7.7) Lymphocytes # (Auto) 2.3 x10^3/uL (1.0-4.8) Monocytes # (Auto) 0.4 x10^3/uL (0.0-1.1) Eosinophils # (Auto) 0.4 x10^3/uL (0.0-0.7) Basophils # (Auto) 0.0 x10^3/uL (0.0-0.2) Sodium Level 136 mmol/L (136-145) Potassium Level 3.8 mmol/L (3.5-5.1) Chloride Level 101 mmol/L (98-107) Carbon Dioxide Level 29 mmol/L (21-32) Anion Gap 6 (6-14) Blood Urea Nitrogen 13 mg/dL (7-20) Creatinine 0.6 mg/dL (0.6-1.0) Estimated GFR (Cockcroft-Gault) 101.0 BUN/Creatinine Ratio 22 (6-20) H Glucose Level 168 mg/dL (70-99) H Lactic Acid Level 1.1 mmol/L (0.4-2.0) Calcium Level 9.1 mg/dL (8.5-10.1) Magnesium Level 1.5 mg/dL (1.8-2.4) L Total Bilirubin 0.3 mg/dL (0.2-1.0) Aspartate Amino Transferase (AST) 18 U/L (15-37) Alanine Aminotransferase (ALT) 23 U/L (14-59) Alkaline Phosphatase 51 U/L (46-116) Troponin I Quantitative 0.023 ng/mL (0.000-0.055) Total Protein 7.1 g/dL (6.4-8.2) Albumin 3.3 g/dL (3.4-5.0) L Albumin/Globulin Ratio 0.9 (1.0-1.7) L Lipase 189 U/L (73-393) Laboratory Tests 03/18/19 16:02 Laboratory Tests 03/18/19 16:02 (GERALDINE DEGROOT MD) Lab Values Laboratory Tests Test 03/18/19 14:53 03/18/19 16:02 Urine Collection Type Unknown Urine Color Yellow Urine Clarity Clear Urine pH 7.5 Urine Specific [place] 1.020 Urine Protein Negative mg/dL (NEG-TRACE) Urine Glucose (UA) Negative mg/dL (NEG) Urine Ketones (Stick) Negative mg/dL (NEG) Urine Blood Negative (NEG) Urine Nitrite Negative (NEG) Urine Bilirubin Negative (NEG) Urine Urobilinogen Dipstick 1.0 mg/dL (0.2 mg/dL) Urine Leukocyte Esterase Negative (NEG) Urine RBC 1-2 /HPF (0-2) Urine WBC 1-4 /HPF (0-4) Urine Amorphous Sediment Present /HPF Urine Bacteria Few /HPF (0-FEW) Urine Mucus Mod /LPF White Blood Count 8.6 x10^3/uL (4.0-11.0) Red Blood Count 4.39 x10^6/uL (3.50-5.40) Hemoglobin 12.3 g/dL (12.0-15.5) Hematocrit 36.7 % (36.0-47.0) Mean Corpuscular Volume 84 fL (79-100) Mean Corpuscular Hemoglobin 28 pg (25-35) Mean Corpuscular Hemoglobin Concent 34 g/dL (31-37) Red Cell Distribution Width 14.0 % (11.5-14.5) Platelet Count 143 x10^3/uL (140-400) Neutrophils (%) (Auto) 63 % (31-73) Lymphocytes (%) (Auto) 27 % (24-48) Monocytes (%) (Auto) 5 % (0-9) Eosinophils (%) (Auto) 5 % (0-3) H Basophils (%) (Auto) 1 % (0-3) Neutrophils # (Auto) 5.5 x10^3uL (1.8-7.7) Lymphocytes # (Auto) 2.3 x10^3/uL (1.0-4.8) Monocytes # (Auto) 0.4 x10^3/uL (0.0-1.1) Eosinophils # (Auto) 0.4 x10^3/uL (0.0-0.7) Basophils # (Auto) 0.0 x10^3/uL (0.0-0.2) Sodium Level 136 mmol/L (136-145) Potassium Level 3.8 mmol/L (3.5-5.1) Chloride Level 101 mmol/L (98-107) Carbon Dioxide Level 29 mmol/L (21-32) Anion Gap 6 (6-14) Blood Urea Nitrogen 13 mg/dL (7-20) Creatinine 0.6 mg/dL (0.6-1.0) Estimated GFR (Cockcroft-Gault) 101.0 BUN/Creatinine Ratio 22 (6-20) H Glucose Level 168 mg/dL (70-99) H Lactic Acid Level 1.1 mmol/L (0.4-2.0) Calcium Level 9.1 mg/dL (8.5-10.1) Magnesium Level 1.5 mg/dL (1.8-2.4) L Total Bilirubin 0.3 mg/dL (0.2-1.0) Aspartate Amino Transferase (AST) 18 U/L (15-37) Alanine Aminotransferase (ALT) 23 U/L (14-59) Alkaline Phosphatase 51 U/L (46-116) Troponin I Quantitative 0.023 ng/mL (0.000-0.055) Total Protein 7.1 g/dL (6.4-8.2) Albumin 3.3 g/dL (3.4-5.0) L Albumin/Globulin Ratio 0.9 (1.0-1.7) L Lipase 189 U/L (73-393) Laboratory Tests 03/18/19 16:02 Laboratory Tests 03/18/19 16:02 (SOLEDAD STANLEY APRN) EKG EKG EKG obtained 03/18/19 at [address] Degroot Sinus rhythm Rate 70 No STEMI (SOLEDAD STANLEY APRN) Radiology/Procedures Radiology/Procedures PROCEDURE: ABDOMEN LTD Exam: Right Upper Quadrant Ultrasound 03/18/2019 3:08 PM Indication: Diarrhea. Upper abdominal pain. Technique: Multiple realtime grayscale sonographic images were obtained over the abdomen. Static images were submitted for interpretation. Comparisons: Abdominal ultrasound September 24, 2015. Findings: Visualized portions of the pancreas are unremarkable. The IVC is patent. Liver is mildly enlarged measuring 19 cm longitudinally. Hepatic echotexture appears grossly normal. No focal hepatic lesions are identified. No intrahepatic biliary dilatation is seen. Limited visualization of the portal vein is unremarkable. The right kidney is normal in appearance measuring 14.6 cm in length. The common bile duct is normal diameter measuring 3 mm. Visualized gallbladder demonstrates no evidence of wall thickening, stones, or sludge. Impression: Mild hepatomegaly. Otherwise unremarkable sonographic appearance of the right upper quadrant Electronically signed by: Coleman Newman MD (03/18/2019 4:08 PM) [facility] DICTATED and SIGNED BY: COLEMAN NEWMAN MD DATE: 03/18/19 1608 PROCEDURE: CHEST AP ONLY CHEST AP ONLY History: Right sided chest pain for one week.. Comparison made with image from 05/19/2015. The heart size is mildly widened in transverse diameter but likely similar to previous exam. No evidence of pneumothorax. No pleural effusion. No evidence of infiltrate. Bones appear intact. IMPRESSION: No evidence of consolidating infiltrate. Electronically signed by: Bernabe Barbour MD (03/18/2019 3:28 PM) [facility] DICTATED and SIGNED BY: BERNABE BARBOUR MD DATE: 03/18/19 1528 PROCEDURE: CT ABD PELV W/ IV CONTRST ONLY CT abdomen and pelvis with contrast. HISTORY: Right upper quadrant pain CT scan of the abdomen and pelvis was done using 75 mL Omnipaque 300 contrast. There is atelectasis or scarring in the lingula and right middle lobe. There is hypertrophic change in the spine. A liver lesion is not identified. Spleen and adrenal glands are normal. There is no mass or hydronephrosis in the kidneys. There is a small cyst in the upper left kidney. There is a 3 mm calculus in the lower left kidney. A punctate calculus in the lower right kidney. There is no hydronephrosis. A ureteral calculus is not identified. Gallbladder is contracted without a calcified gallstone. There is no bowel obstruction. There is a short appendix which is normal. Patient's had a hysterectomy. Patient's had previous lower lumbar laminectomy. There is thickening of the wall the gastric antrum. IMPRESSION: 1. Intrarenal calculi. 2. No ureteral calculus or hydronephrosis. 3. Contracted gallbladder without calcified gallstones. 4. Thickening of the wall of the gastric antrum nonspecific but gastritis would be possible. Electronically signed by: Tarun Aranda MD (03/18/2019 6:02 PM) [facility] DICTATED and SIGNED BY: TARUN ARANDA MD DATE: 03/18/19 180 (SOLEDAD STANLEY APRN) Course & Med Decision Making Course & Med Decision Making Pertinent Labs and Imaging studies reviewed. (See chart for details) 1710: On reevaluation patient has complaints of increased right upper quadrant pain although she had been feeling better following initial dose of medicine. Will provide patient with additional nausea medicine as she reports she is feeling increasingly nauseous. She's had no active vomiting or diarrhea episodes while in the ER. Test results were discussed with patient and her daughter. Ultrasound showed mildly enlarged liver otherwise unremarkable for acute findings. EKG with no acute ST elevation or STEMI and troponin was negative at 0.023. Chest xray no acute findings. WBCs normal limits and lactic acid 1.1. UA with 1-4 WBCs on micro with bacteria- she has denied any urinary sxs. With patient's increased abdominal pain and concerns will obtain CT of abdomen and pelvis for further evaluation. CT results discussed with patient and her family- report of constricted GB with out stones and thickening of intestinal wall which could be suggestive of gastritis. Again discussed lab results. Patient reports she has had improvement in symptoms-abdomen soft with no distention or rigidity. Discussed plans for home discharge with patient to follow-up for outpatient reevaluation and further care. Will provide GI and general surgery information with discharge paperwork. Patient is to follow-up with her primary care physician as well for reevaluation. Patient was given 400 mg magnesium as her labs showed mag to be 1.5. She reports she has had this issue in the past and her records show magnesium has been down to 1.4 in the past. Patient denies any chest pain or palpitations. Patient is in no visible distress as plan of care is discussed with her. Patient advised on bland diet and to avoid fatty/fried foods. She was advised to avoid those that have triggered episodes in the past. Will provide patient with prescriptions for Zofran ODT and dicyclomine. With patient's con cerns of increased pain will provide a quantity of [place] tablets with patient advised to use only with severe pain and if taking to also take stool softeners and increase fluid intake. Education provided on signs and symptoms to return to ER. Discharge instructions were discussed. (SOLEDAD STANLEY APRN) Course & Med Decision Making I was not involved in the care of this patient after 1800 on 03/18/2019. (GERALDINE DEGROOT MD) Dragon Disclaimer Dragon Disclaimer This electronic medical record was generated, in whole or in part, using a voice recognition dictation system. (SOLEDAD STANLEY APRN) Departure Departure Impression: Primary Impression: Abdominal pain Disposition: HOME, SELF-CARE Condition: STABLE Referrals: AMBAR BUSTAMANTE MD (PCP) CLARK MATHIS MD, SCOTT S MD Patient Instructions: Abdominal Pain Additional Instructions: Avoid fried/fatty foods- avoid foods that have been causing you increased abdominal pain such as the sausage today. Drink plenty of fluids. As discussed follow-up with your primary care physician and is abdominal issues continue follow-up with a GI (gastrointestinal) or general surgery with concerns for your gallbladder. Scripts Hydrocodone/Apap 5-325 (NORCO 5-325 TABLET) 1 Each Tablet 1 TAB PO PRN Q6HRS PRN for PAIN, #8 TAB 0 Refills Take for severe pain Prov: SOLEDAD STANLEY APRN 03/18/19 Dicyclomine Hcl (DICYCLOMINE HCL) 10 Mg Capsule 1 CAP PO PRN Q6HRS PRN for PAIN, #10 CAP 3 Refills Prov: SOLEDAD STANLEY APRN 03/18/19 Ondansetron (ONDANSETRON ODT) 4 Mg Tab.rapdis 1 TAB PO PRN Q6-8HRS PRN for NAUSEA, #10 TAB 0 Refills Prov: SOLEDAD STANLEY APRN 03/18/19 SOLEDAD STANLEY APRN Mar 18, 2019 15:14 GERALDINE DEGROOT MD Mar 22, 2019 06:13
[2019-03-18] MEDS ORDERED: fentaNYL PF VIAL 100 MCG/2 ML VIAL IV ONE (15:15)
[2019-03-18] MEDS ORDERED: IV NORMAL SALINE 1000ML BAG 1,000 ML IV ONE (15:15)
[2019-03-18] MEDS ORDERED: ONDANSETRON PF 4 MG/2 ML VIAL. IV ONE ×2 (15:15→17:30)
[2019-03-18 15:30] LABS: AMORPHOUS SEDIMENT,UR PRESENT /HPF; BACTERIA,URINE FEW /HPF (0-FEW)
--- NOTE | 2019-03-18 15:31 | RAD ---
CHEST AP ONLY History: Right sided chest pain for one week.. Comparison made with image from 05/19/2015. The heart size is mildly widened in transverse diameter but likely similar to previous exam. No evidence of pneumothorax. No pleural effusion. No evidence of infiltrate. Bones appear intact. IMPRESSION: No evidence of consolidating infiltrate. Electronically signed by: Bernabe Barbour MD (03/18/2019 3:28 PM) [facility]
--- NOTE | 2019-03-18 16:10 | RAD ---
Exam: Right Upper Quadrant Ultrasound 03/18/2019 3:08 PM Indication: Diarrhea. Upper abdominal pain. Technique: Multiple realtime grayscale sonographic images were obtained over the abdomen. Static images were submitted for interpretation. Comparisons: Abdominal ultrasound September 24, 2015. Findings: Visualized portions of the pancreas are unremarkable. The IVC is patent. Liver is mildly enlarged measuring 19 cm longitudinally. Hepatic echotexture appears grossly normal. No focal hepatic lesions are identified. No intrahepatic biliary dilatation is seen. Limited visualization of the portal vein is unremarkable. The right kidney is normal in appearance measuring 14.6 cm in length. The common bile duct is normal diameter measuring 3 mm. Visualized gallbladder demonstrates no evidence of wall thickening, stones, or sludge. Impression: Mild hepatomegaly. Otherwise unremarkable sonographic appearance of the right upper quadrant Electronically signed by: Coleman Pollock MD (03/18/2019 4:08 PM) [facility]
[2019-03-18 16:24] LABS: BASO % 1 % (0-3); EOS # 0.4 x10^3/uL (0.0-0.7); EOS % 5 % (0-3); HEMATOCRIT 36.7 % (36.0-47.0); HEMOGLOBIN 12.3 g/dL (12.0-15.5); LYMPH # 2.3 x10^3/uL (1.0-4.8); LYMPH % 27 % (24-48); MEAN CORPUSCULAR HEMOGLOBIN 28 pg (25-35); MEAN CORPUSCULAR HGB CONC 34 g/dL (31-37); MEAN CORPUSCULAR VOLUME 84 fL (79-100); MONO # 0.4 x10^3/uL (0.0-1.1); MONO % 5 % (0-9); NEUT # 5.5 x10^3uL (1.8-7.7); NEUT % 63 % (31-73); PLATELET COUNT 143 x10^3/uL (140-400); RED BLOOD COUNT 4.39 x10^6/uL (3.50-5.40); WHITE BLOOD COUNT 8.6 x10^3/uL (4.0-11.0)
[2019-03-18 16:49] LABS: CALCIUM 9.1 mg/dL (8.5-10.1); CREATININE 0.6 mg/dL (0.6-1.0); POTASSIUM 3.8 mmol/L (3.5-5.1)
[2019-03-18 16:55] LABS: ALBUMIN 3.3 g/dL (3.4-5.0); ALBUMIN/GLOBULIN RATIO 0.9 (1.0-1.7); MAGNESIUM 1.5 mg/dL (1.8-2.4); TOTAL BILIRUBIN 0.3 mg/dL (0.2-1.0); TOTAL PROTEIN 7.1 g/dL (6.4-8.2)
[2019-03-18] MEDS ORDERED: MAGNESIUM OXIDE 400 MG TABLET PO SCH (17:02)
[2019-03-18] MEDS ORDERED: DICYCLOMINE 20 MG/2 ML AMPUL. IM ONE (17:30)
[2019-03-18] MEDS ORDERED: CONTRAST GIVEN. MC PRN (17:30)
[2019-03-18] MEDS ORDERED: IOHEXOL 300 MG/ML 100ML VIAL. IV ONE (17:45)
--- NOTE | 2019-03-18 18:05 | RAD ---
CT abdomen and pelvis with contrast. HISTORY: Right upper quadrant pain CT scan of the abdomen and pelvis was done using 75 mL Omnipaque 300 contrast. There is atelectasis or scarring in the lingula and right middle lobe. There is hypertrophic change in the spine. A liver lesion is not identified. Spleen and adrenal glands are normal. There is no mass or hydronephrosis in the kidneys. There is a small cyst in the upper left kidney. There is a 3 mm calculus in the lower left kidney. A punctate calculus in the lower right kidney. There is no hydronephrosis. A ureteral calculus is not identified. Gallbladder is contracted without a calcified gallstone. There is no bowel obstruction. There is a short appendix which is normal. Patient's had a hysterectomy. Patient's had previous lower lumbar laminectomy. There is thickening of the wall the gastric antrum. IMPRESSION: 1. Intrarenal calculi. 2. No ureteral calculus or hydronephrosis. 3. Contracted gallbladder without calcified gallstones. 4. Thickening of the wall of the gastric antrum nonspecific but gastritis would be possible. Electronically signed by: Tarun Aranda MD (03/18/2019 6:02 PM) [facility]
[2019-03-18 18:07] VITALS: BP 187/80
[2019-03-18] MEDS ORDERED: HYDR-3164 PO (18:28)
[2019-03-18] MEDS ORDERED: DICY10CA3 PO (18:28)
[2019-03-18] MEDS ORDERED: ONDA4TAB12 PO (18:28)
--- NOTE | 2019-03-19 06:11 | EKG ---
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
== END 2019-03-18 18:35 | disposition home or self-care (01) ==
LOC: ER 12:52
DX: R10.11 Right upper quadrant pain (principal); R10.31 Right lower quadrant pain; R11.2 Nausea with vomiting, unspecified; R19.7 Diarrhea, unspecified; F32.9 Major depressive disorder, single episode, unspecified; E11.9 Type 2 diabetes mellitus without complications; Z90.710 Acquired absence of both cervix and uterus; Z88.5 Allergy status to narcotic agent
CPT/HCPCS: 36415; 71045; 74177; 76705; 80053; 81001; 83605; 83690; 83735; 84484; 85025; 93005; 96361; 96372; 96374; 96375; 96376; 99285; J0500; J2405; J3010; J7030; Q9967

== ENCOUNTER → 2019-04-08 | Outpatient (CLI) | payer BC ==
[2019-03-18 18:07] VITALS: BP 187/80
[~2019-04-08] MED LIST changes: +DICY10CA3 PO; +HYDR-3164 PO; +ONDA4TAB12 PO
--- NOTE | 2019-04-08 16:24 | KCIC ---
Bilateral digital screening mammograms with 3-D tomosynthesis: Reason for examination: Routine screening. Comparison is made to previous studies dated back to 02/11/2014. Bilateral mammograms in CC and oblique projections were obtained with 2-D imaging and 3-D tomosynthesis imaging on a Siemens Inspiration unit and reviewed on the workstation. Interpretation was made with the benefit of CAD. The skin and nipples show no abnormalities. No abnormal axillary lymph nodes are seen. The breast parenchyma is predominantly fatty. (Breast density: Category A.) There are couple benign-appearing nodules seen bilaterally which are stable. There are no new dominant masses, suspicious calcifications or architectural distortion. Benign calcifications are present. Impression: No evidence of malignancy. Recommend routine screening. BI-RAD Category 2: Benign. "Our facility is accredited by the [employer] Mammography Program." This patient's information has been entered into a reminder system for the patient to be notified with the results of her examination and a target date for the next mammogram. Electronically signed by: Shiela Witt MD (04/08/2019 4:21 PM) [facility]
== END | disposition home or self-care (01) ==
LOC: KCIC MAMMO 14:26
PROVIDERS: ATTEND Family Medicine
DX: Z12.31 Encounter for screening mammogram for malignant neoplasm of breast (principal); N63.20 Unspecified lump in the left breast, unspecified quadrant; N63.10 Unspecified lump in the right breast, unspecified quadrant; N64.89 Other specified disorders of breast
CPT/HCPCS: 77063; 77067

== ENCOUNTER → 2021-04-02 | Outpatient (CLI) | payer MEDICARE, OTHER ==
--- NOTE | 2021-04-02 15:52 | KCIC ---
Bilateral digital screening mammograms with 3-D tomosynthesis: Reason for examination: Routine screening. Comparison is made to previous studies dated back to 02/11/2014. Bilateral mammograms in CC and oblique projections were obtained with 2-D imaging and 3-D tomosynthes is imaging on a Siemens Inspiration unit and reviewed on the workstation. Interpretation was made wit h the benefit of CAD. The skin and nipples show no abnormalities. No abnormal axillary lymph nodes are seen. The breast par enchyma shows scattered fatty and fibroglandular density. (Breast density: Category B.) There continu ed be small nodules consistent with probable intramammary lymph nodes bilaterally which are stable. T here are no new dominant masses, suspicious calcifications or architectural distortion. Benign appear ing calcifications are present. Impression: No evidence of malignancy. Recommend routine screening. BI-RAD Category 2: Benign. "Our facility is accredited by the [employer] Mammography Program." This patient's information has been entered into a reminder system for the patient to be notified wit h the results of her examination and a target date for the next mammogram. Electronically signed by: Shiela Witt MD (04/02/2021 3:50 PM) [id number]
== END ==
LOC: KCIC MAMMO 13:35
PROVIDERS: ATTEND Family Medicine
DX: Z12.31 Encounter for screening mammogram for malignant neoplasm of breast (principal)
CPT/HCPCS: 77063; 77067

== ENCOUNTER 2021-04-13 16:11 | Emergency (ER) | payer OTHER ==
[~2021-04-13] VITALS: Ht 165.1 cm; Wt 86.4 kg
[2021-04-13 17:15] VITALS: BP 194/89
[2021-04-13] MEDS ORDERED: IBUPROFEN 200 MG TABLET. PO ONE (17:45)
[2021-04-13] MEDS ORDERED: HYDROcodone/APAP 5/325MG 1 TAB TABLET PO ONE (17:45)
--- NOTE | 2021-04-13 18:48 | PHYS DOC ---
Past Medical History Past Medical History: Depression, Diabetes-Type II Past Surgical History: Hysterectomy, Tubal ligation, Other Additional Past Surgical Histo: Bowel surgery, carpall tunnel surgery, arm surgery Smoking Status: Never Smoker Alcohol Use: Occasionally Drug Use: None General Adult EDM: Chief Complaint: LOWER EXT PAIN HPI: HPI: Patient is a 66 year old female presents to the emergency department with chief complaint of left foot ankle and lower leg swelling after a fall last week. Patient states she slipped and fell on some water and twisted her left ankle feeling a sudden onset of pain on the top of her left foot. Patient states she did land on her right shoulder. Patient reports that she has been using warm soaks and compresses without relief of pain. Patient worries that she might have a blood clot. Patient does complain of pain however states she can still ambulate without difficulties. Patient reports she tried eating CBD Gummies with Tylenol extra strength with minimal pain relief. Patient reports her pain a 7 out of 10. Patient states she is diabetic and worries that that might delay her healing. Patient reports she sees Dr. Meza for primary care. Patient denies any allergies to medications. Patient denies shortness of breath, chest pains, recent fever or chills. Patient denies increased thirst or increased urination. Patient denies any other physical complaints or physical concerns. Review of Systems: Review of Systems: 14 body systems of review of systems have been reviewed. See HPI for pertinent positives and negative responses, otherwise all other systems are negative, nonpertinent or noncontributory. Constitutional: Negative except as outlined in HPI above. Skin: Negative except as outlined in HPI above. Eyes: Negative except as outlined in HPI above. HENT: Negative except as outlined in HPI above. Respiratory: Negative except as outlined in HPI above. Cardiovascular: Negative except as outlined in HPI above. GI: Negative except as outlined in HPI above. : Negative except as outlined in HPI above. Musculoskeletal: Negative except as outlined in HPI above. Integument: Negative except as outlined in HPI above. Neurologic: Negative except as outlined in HPI above. Endocrine: Negative except as outlined in HPI above. Lymphatic: Negative except as outlined in HPI above. Psychiatric: Negative except as outlined in HPI above. Heart Score: C/O Chest Pain: No Risk Factors: Risk Factors: DM, Current or recent (<one month) smoker, HTN, HLP, family history of CAD, obesity. Risk Scores: Score 0 - 3: 2.5% MACE over next 6 weeks - Discharge Home Score 4 - 6: 20.3% MACE over next 6 weeks - Admit for Clinical Observation Score 7 - 10: 72.7% MACE over next 6 weeks - Early Invasive Strategies Current Medications: Current Medications Medications (Trade) Dose Ordered Sig/Royer Start Time Stop Time Status Last Admin Dose Admin Acetaminophen/ Hydrocodone Bitart (Lortab 5/325) 1 tab 1X ONCE 04/13/21 17:45 04/13/21 17:46 DC 04/13/21 17:58 1 TAB Ibuprofen (Motrin) 600 mg 1X ONCE 04/13/21 17:45 04/13/21 17:46 DC 04/13/21 17:58 600 MG Allergies: Allergies: Allergies Coded Allergies Type Severity Reaction Last Updated Verified morphine Allergy Intermediate hallucinations 03/18/19 No Physical Exam: PE: Constitutional: Well developed, well nourished, no acute distress, non-toxic appearance. 66-year-old female in no apparent distress. HENT: Normocephalic, atraumatic. Eyes: Conjunctiva normal, no discharge. Neck: Normal range of motion, no stridor. Cardiovascular: No cyanosis appreciated, distal cap refill less than 2 seconds. Lungs & Thorax: Patient is in no respiratory distress, no audible adventitious lung sounds appreciated. Abdomen: Nontender, no abnormalities noted. Skin: Warm, dry, no erythema, no rash. Back: No tenderness, no deformities. Extremities: No tenderness, no cyanosis, no clubbing, ROM intact, no edema. Except for left lower extremity, mild edema to bilateral malleoli skin surfaces, no skin discoloration appreciated, mild edema to top of foot. Distal cap refill is less than 2 seconds, full range of motion of toes, pain to palpation along ankle and talus foot structures. 1+ dorsalis pedis/posterior tibial pulse. Limited passive range of motion of the ankle related to pain, no crepitus or deformity appreciated of left lower extremity for. No knee pain appreciated to range of motion. Limited passive range of motion to right shoulder related to pain. No crepitus appreciated, no deformities appreciated, no skin discoloration bruising or edema appreciated. Neurologic: Alert and oriented X 3, normal motor function, normal sensory function, no focal deficits noted. Psychologic: Affect normal, judgement normal, mood normal. Current Patient Data: Vital Signs: Vital Signs Date Time Temp Pulse Resp B/P (MAP) Pulse Ox O2 Delivery O2 Flow Rate FiO2 04/13/21 17:15 98.5 76 18 194/89 97 Room Air 98.5 EKG: EKG: [] Radiology/Procedures: Radiology/Procedures: PATIENT: LINDA TAYLOR ACCOUNT: [id number] : 1955 LOCATION: ER AGE: 66 SEX: F EXAM STATUS: REG ER ORD. PHYSICIAN: SHANNON MALIK APRN REASON: fall, pain PROCEDURE: TIBIA FIBULA LEFT XR LT TIBIA + FIBULA History: Reason: fall, pain / Spl. Instructions: / History: Technique: 2 views left tibia and fibula Comparison: None. Findings: Normal alignment. No acute fracture. Moderate left DJD most prominent in the medial and patellofemoral compartments. Vascular calcifications. Anterior lower extremity soft tissue swelling. Impression: 1. No acute osseous abnormality. 2. Anterior lower extremity soft tissue swelling. XR FOOT_LEFT 3 VIEWS History: Reason: fall, pain / Spl. Instructions: / History: Technique: 3 views left foot Comparison: None. Findings: Normal alignment. No fracture. Vascular calcifications. Mild first MTP DJD. Plantar calcaneal spur. Impression: 1. No acute osseous abnormalities. XR SHOULDER_RIGHT 2+ VIEWS History: Reason: fall, pain / Spl. Instructions: / History: Technique: 3 views right shoulder Comparison: None. Findings: No dislocation. No acute fracture. Calcination within the region of the right rotator cuff, may indicate calcific tendinosis. Mild acromioclavicular DJD. Impression: 1. No acute osseous abnormalities. Electronically signed by: Carter Phillips DO (04/13/2021 6:50 PM) [facility] DICTATED and SIGNED BY: CARTER PHILILPS DO DATE: 04/13/21 [id number] 0 Course & Med Decision Making: Course & Med Decision Making Pertinent Labs and Imaging studies reviewed. (See chart for details) 66-year-old female, vital signs reviewed, presents to the emergency department concerning a fall a week ago. Physical examination concerning for possible bony injury of left ankle/foot bony structures. Right shoulder pain with range of motion after fall, no contusions were appreciated however will order x-ray of right shoulder and left tib-fib, left foot. Patient given p.o. pain medications. X-rays negative for acute fracture, patient reported pain relief with medications given in the ED today. Discussed with patient x-ray findings, RICE therapy, follow-up with primary care soon. Discussed with the patient all findings and diagnostic testing as well as the need to follow-up with their primary care provider for further evaluation and treatment or return to the ED if any new or worsening symptoms. Strict return precautions were also discussed at length, the patient voiced understanding and agreement with the discharge planning. The patient was nontoxic in appearance, in no apparent distress, and hemodynamically stable at the time of disposition. Dragon Disclaimer: Dragon Disclaimer: This electronic medical record was generated, in whole or in part, using a voice recognition dictation system. Departure Departure Impression: Primary Impression: Left ankle sprain Qualified Codes: S93.402A - Sprain of unspecified ligament of left ankle, initial encounter Additional Impression: Contusion of left shoulder Qualified Codes: S40.012A - Contusion of left shoulder, initial encounter Disposition: HOME / SELF CARE / HOMELESS Condition: GOOD Referrals: AMBAR BUSTAMANTE MD (PCP) Patient Instructions: Ankle Sprain, Shoulder Pain Additional Instructions: You were seen today after a slip and fall a week ago. X-rays were performed of your left lower leg and foot, there were no signs of fracture or bony injury. An x-ray was performed of your right shoulder, again there were no concerning signs of a fracture or shoulder injury. You were given pain medication today in the ER, you stated that you had significant pain relief with these medications. As we discussed at length I recommend RICE therapy which is rest, ice, compression, and elevation. As we discussed we are placed in a [place] wrap and ankle splint to assist with discomfort. We also discussed shoulder pendulum exercises to help keep the shoulder loose and moving free. Please take medica tions as prescribed. Follow-up with your primary care doctor this week. Thank you for visiting our Emergency Department. It was a pleasure taking care of you today in the emergency department and we appreciate you trusting us with your care. If any additional problems come up don't hesitate to return to visit us. Please follow up with your primary care provider so they can plan additional care if needed and know about the problem that you had. If symptoms worsen come back to the Emergency Department. Any concerning symptoms that start such as chest pain, shortness of air, weakness or numbness on one side of the body, running high fevers or any other concerning symptoms return to the ER. EMERGENCY DEPARTMENT GENERAL DISCHARGE INSTRUCTIONS Thank you for coming to [facility] Emergency Department (ED) today and trusting us with you care. We trust that you had a positive experience in our Emergency Department. If you wish to speak to the department management, you may call the Director at [phone]. YOUR FOLLOW UP INSTRUCTIONS ARE FOLLOWS: 1. Do you have a private Doctor? If you do not have a private doctor, please ask for a resource list of physicians or clinics that may be able to assist you with follow up care. 2. The Emergency Physicain has interpreted your x-rays. The X-Ray specialist will also review them. If there is a change in the findings, you will be notified in 48 hours when at all possible. 3. A lab test or culture has been done, your results will be reviewed and you will be notified if you need a change in treatment. ADDITIONAL INSTRUCTIONS AND INFORMATION: 1. Your care today has been supervised by a physician who is specially trained in emergency care. Many problems require more than one evaluation for a complete diagnosis and treatment. We recommend that you schedule your follow up appointment as recommended to ensure complete treatment of you illness or injury. If you are unable to obtain follow up care and continue to have a problem, or if your condition worsens, we recommend that you return to the ED. 2. We are not able to safely determine your condition over the phone nor are we able to give sound medical advice over the phone. For these safety reasons, if you call for medical advice we will ask you to come to the ED for further evaluation. 3. If you have any questions regarding these discharge instructions please call the ED at [phone]. SAFETY INFORMATION: In the interest of safety, wellness, and injury prevention; we encourage you to wear your sealbelt, if you smoke; quite smoking, and we encourage family to use a protective helmet for bicycling and other sporting events that present an increased risk for head injury. IF YOUR SYMPTOMS WORSEN OR NEW SYMPTOMS DEVELOP, OR YOU HAVE CONCERNS ABOUT YOUR CONDITION; OR IF YOUR CONDITION WORSENS WHILE YOU ARE WAITING FOR YOUR FOLLOW UP APPOINTMENT; EITHER CONTACT YOUR PRIMARY CARE DOCTOR, THE PHYSICIAN WHOSE NAME AND NUMBER YOU WERE GIVEN, OR RETURN TO THE ED IMMEDIATELY. Scripts Hydrocodone Bit/Acetaminophen (HYDROCODONE-APAP 5-325 ) 1 Tab Tablet 1 TAB PO PRN Q6HRS PRN for SEVERE PAIN 7-10, #10 TAB 0 Refills Prov: SHANNON MALIK APRN 04/13/21 Ibuprofen (IBUPROFEN) 600 Mg Tablet 600 MG PO PRN Q6HRS PRN for INFLAMMATION, #20 TAB 0 Refills Prov: SHANNON MALIK APRN 04/13/21 SHANNON MALIK APRN Apr 13, 2021 18:48
--- NOTE | 2021-04-13 18:50 | RAD ---
XR LT TIBIA + FIBULA History: Reason: fall, pain / Spl. Instructions: / History: Technique: 2 views left tibia and fibula Comparison: None. Findings: Normal alignment. No acute fracture. Moderate left DJD most prominent in the medial and patellofemora l compartments. Vascular calcifications. Anterior lower extremity soft tissue swelling. Impression: 1. No acute osseous abnormality. 2. Anterior lower extremity soft tissue swelling. Electronically signed by: Carter Phillips DO (04/13/2021 6:48 PM) [facility]
--- NOTE | 2021-04-13 18:52 | RAD ---
XR SHOULDER_RIGHT 2+ VIEWS History: Reason: fall, pain / Spl. Instructions: / History: Technique: 3 views right shoulder Comparison: None. Findings: No dislocation. No acute fracture. Calcination within the region of the right rotator cuff, may indic ate calcific tendinosis. Mild acromioclavicular DJD. Impression: 1. No acute osseous abnormalities. Electronically signed by: Carter Phillips DO (04/13/2021 6:50 PM) [facility]
[2021-04-13] MEDS ORDERED: IBUP-1007 PO (19:08)
[2021-04-13] MEDS ORDERED: HYDR-2761 PO (19:08)
== END 2021-04-13 19:25 | disposition home or self-care (01) ==
LOC: ER 16:11
DX: S93.402A Sprain of unspecified ligament of left ankle, initial encounter (principal); S40.012A Contusion of left shoulder, initial encounter; E11.9 Type 2 diabetes mellitus without complications; Z88.5 Allergy status to narcotic agent; W01.0XXA Fall on same level from slipping, tripping and stumbling without subsequent striking against object, initial encounter; Y93.89 Activity, other specified; Y92.89 Other specified places as the place of occurrence of the external cause; Y99.8 Other external cause status
CPT/HCPCS: 73030; 73590; 73630; 99284; L4350

== ENCOUNTER → 2021-05-04 | Outpatient (CLI) | payer OTHER ==
[2021-04-13 17:15] VITALS: BP 194/89
[~2021-05-04] MED LIST changes: +HYDR-2761 PO; +IBUP-1007 PO
--- NOTE | 2021-05-04 17:17 | KCIC ---
Exam Date: 05/04/2021 2:00 PM MRI RIGHT UPPER EXTREMITY JOINT WITHOUT CONTRAST Indication: Reason: RIGHT SHOULDER PAIN / Spl. Instructions: / History: Right shoulde pain and LROM since a fall one month ago.. TECHNIQUE: Routine multiplanar MR imaging of the shoulder was performed without contrast. FINDINGS: Abnormal signal in the supraspinatus tendon is consistent with tendinopathy. There is a small calcif ication involving the anterior insertional fibers of the supraspinatus tendon consistent with calcifi c tendinitis. There is a partial-thickness articular sided fraying involving the mid insertional fib ers of supraspinatus tendon. No full-thickness rotator cuff tendon tear is identified. The infraspinatus, teres minor and subscap ularis tendons are intact. Rotator cuff musculature demonstrates normal signal and bulk. Mild to moderate degenerative changes are seen at the AC joint. There is an intact type II acromion. No significant fluid is seen in the subacromial/subdeltoid bursa. Long head of the biceps tendon is intact. Degenerative signal is seen in the labrum, though lack of intra-articular contrast limits evaluation. Mild to moderate degenerative changes are seen at the glenohumeral joint. Bone marrow demonstrates b enign signal on all sequences without acute fracture. IMPRESSION: Partial thickness articular sided fraying involving the insertional fibers of supraspinatus tendon. No full-thickness rotator cuff tendon tear identified. Supraspinatus tendinopathy and calcific tendi nitis is also noted. Additional mild to moderate degenerative changes as described. Electronically signed by: Vinicius Rao MD (05/04/2021 5:14 PM) [facility]
== END ==
LOC: KCIC MRI 13:31
PROVIDERS: ATTEND Orthopaedic Surgery
DX: M19.012 Primary osteoarthritis, left shoulder (principal); M75.31 Calcific tendinitis of right shoulder; M25.811 Other specified joint disorders, right shoulder
CPT/HCPCS: 73221

== ENCOUNTER 2021-06-27 04:22 | Inpatient (IN) | payer OTHER ==
[~2021-06-27] VITALS: Ht 165.1 cm; Wt 91.2 kg
[2021-06-27] MEDS ORDERED: IV NORMAL SALINE 1000ML BAG 1,000 ML IV ONE ×2 (04:45→08:45)
--- NOTE | 2021-06-27 04:49 | PHYS DOC ---
Past Medical History Past Medical History: Depression, Diabetes-Type II (VALDO GOMEZ DO) Past Surgical History: Hysterectomy, Tubal ligation, Other Additional Past Surgical Histo: Bowel surgery, carpall tunnel surgery, arm surgery (VALDO GOMEZ DO) Smoking Status: Never Smoker Alcohol Use: Occasionally Drug Use: None (VALDO GOMEZ DO) General Adult EDM: Chief Complaint: LACERATION/AVULSION HPI: HPI: 66-year-old female presents to the emergency department complaining of a laceration on the back of her head after she fell during a syncopal episode where she states that she lost consciousness when she fell on the back of her head. She states that she was sleeping on a couch when she fell backwards, sustaining a laceration on the back of her head. She notes there was some blood at the scene and there was a blood clot in the back of her head. She does not take any blood thinners. She reports that she lost consciousness after she hit her head. She denies any preceding chest pain shortness of breath or any further symptoms. She reports that she only says low blood pressure at home. She admits to some nausea. Patient denies chest pain shortness of breath fever chills cough urinary complaints diarrhea abdominal pain or any further symptoms (VALDO GOMEZ DO) Review of Systems: Review of Systems: ROS is otherwise negative except for what was mentioned in the HPI (VALDO GOMEZ DO) Heart Score: C/O Chest Pain: No (VALDO GOMEZ DO) Family History: Family History: Noncontributory (VALDO GOMEZ DO) Allergies: Allergies: Allergies Coded Allergies Type Severity Reaction Last Updated Verified morphine Allergy Intermediate hallucinations 03/18/19 No (VALDO GOMEZ DO) Physical Exam: PE: Constitutional: No acute distress, non-toxic appearance. HENT: Approximately 1 cm laceration to the midline occiput with overlying blood Eyes: PERRLA, EOMI, conjunctiva normal, no discharge. Neck: Normal range of motion, supple, no stridor. Cardiovascular: Heart rate regular rhythm. 2+ radial pulses Lungs & Thorax: No respiratory distress, symmetrical expansion. Bilateral breath sounds clear to auscultation Abdomen: Soft, no tenderness Skin: Warm, dry. Extremities: No tenderness, no cyanosis, ROM intact, no edema. Neurologic: Alert and oriented X 3, normal motor function, normal sensory function, no focal deficits noted. GCS 15. Psychologic: Affect normal, judgment normal, mood normal. (VALDO GOMEZ DO) PE: Constitutional: Well developed, well nourished, no acute distress, non-toxic appearance HENT: Normocephalic, small occipital laceration repaired with staple Eyes: PERRL, EOMI, conjunctiva normal, no discharge, no nystagmus Neck: Normal range of motion, no tenderness, supple Lungs & Thorax: No respiratory distress, equal chest rise and fall Abdomen: Soft, no tenderness Skin: Warm, dry, no erythema, no rash Extremities: No tenderness, ROM intact, no edema Neurologic: Alert and oriented X 3, normal motor function, normal sensory function, no focal deficits noted Psychologic: Affect normal, judgment normal (SHANNON POLO DO) Current Patient Data: Labs: Laboratory Tests Test 06/27/21 04:55 White Blood Count 9.7 x10^3/uL (4.0-11.0) Red Blood Count 3.43 x10^6/uL (3.50-5.40) Hemoglobin 9.3 g/dL (12.0-15.5) Hematocrit 28.1 % (36.0-47.0) Mean Corpuscular Volume 82 fL (79-100) Mean Corpuscular Hemoglobin 27 pg (25-35) Mean Corpuscular Hemoglobin Concent 33 g/dL (31-37) Red Cell Distribution Width 15.3 % (11.5-14.5) Platelet Count 203 x10^3/uL (140-400) Neutrophils (%) (Auto) 66 % (31-73) Lymphocytes (%) (Auto) 26 % (24-48) Monocytes (%) (Auto) 6 % (0-9) Eosinophils (%) (Auto) 1 % (0-3) Basophils (%) (Auto) 1 % (0-3) Neutrophils # (Auto) 6.4 x10^3/uL (1.8-7.7) Lymphocytes # (Auto) 2.6 x10^3/uL (1.0-4.8) Monocytes # (Auto) 0.5 x10^3/uL (0.0-1.1) Eosinophils # (Auto) 0.1 x10^3/uL (0.0-0.7) Basophils # (Auto) 0.1 x10^3/uL (0.0-0.2) Sodium Level 135 mmol/L (136-145) Potassium Level 4.6 mmol/L (3.5-5.1) Chloride Level 100 mmol/L (98-107) Carbon Dioxide Level 27 mmol/L (21-32) Anion Gap 8 (6-14) Blood Urea Nitrogen 55 mg/dL (7-20) Creatinine 1.0 mg/dL (0.6-1.0) Estimated GFR (Cockcroft-Gault) 55.5 Glucose Level 366 mg/dL (70-99) Calcium Level 8.8 mg/dL (8.5-10.1) Troponin I Quantitative 0.025 ng/mL (0.000-0.055) VL-Gqz-P-Type Natriuretic Peptide 1628 pg/mL (0-124) Vital Signs: Vital Signs Date Time Temp Pulse Resp B/P (MAP) Pulse Ox O2 Delivery O2 Flow Rate FiO2 06/27/21 05:52 94 25 106/59 (75) 99 (VALDO GOMEZ DO) EKG: EKG: Time read: 0446 Normal sinus rhythm rate of 90, T wave inversions are present in 1 and aVL, no ectopic beats, normal axis, normal LA, QRS, and QTc intervals. Impression: No STEMI interpreted by Valdo blakely D.O. (VALDO GOMEZ DO) Radiology/Procedures: Radiology/Procedures: PROCEDURE: CT HEAD WO CONTRAST EXAMINATION: CT HEAD/BRAIN WO CLINICAL HISTORY: Head trauma TECHNIQUE: Serial axial images without IV contrast were obtained from the vertex to the foramen magnum. CT Dose Reduction Employed: One or more of the following individualized dose reduction techniques were utilized for this examination: 1. Automated exposure control 2. Adjustment of the mA and/or kV according to patient size 3. Use of iterative reconstruction technique. COMPARISON: None FINDINGS: Acute Change: No evidence of an acute contusion or other acute parenchymal process. Hemorrhage: No evidence of acute intracranial hemorrhage. Mass Lesion/Mass Effect: No evidence of intracranial mass or extraaxial fluid collection. No significant mass effect. Chronic Change: Scattered patchy foci of hypoattenuation in the supratentorial white matter, nonspecific but likely represents mild microvascular ischemia. Atherosclerotic calcification of the bilateral carotid siphons. Parenchyma: Mild generalized volume loss. Ventricles: Ventricular enlargement concordant with degree of parenchymal volume loss. Paranasal Sinuses and Skull Base: Visualized paranasal sinuses clear. Visualized skull base and soft tissues unremarkable. IMPRESSION: No evidence of acute intracranial abnormality. Electronically signed by: Milton Nugent DO (06/27/2021 5:32 AM) . EXAMINATION: XR CHEST 1V CLINICAL HISTORY: Syncope EXAM DATE/TIME: 06/27/2021 4:51 AM COMPARISON: None FINDINGS: Lines, Tubes, and Devices: None. Cardiomediastinal Silhouette: Normal heart size. Aortic atherosclerotic calcification. Lungs and Pleura: No evidence of focal airspace consolidation or pleural effusio n. Pulmonary vasculature unremarkable. Bones and Soft Tissues: Degenerative changes in the thoracic spine. IMPRESSION: No evidence of acute cardiopulmonary abnormality or significant interval change. Electronically signed by: Milton Nugent DO (06/27/2021 5:33 AM) (VALDO GOMEZ DO) Course & Med Decision Making: Course & Med Decision Making Laceration Repair Procedure Time: 444 Confirmed: Patient, procedure, side, and site correct. Consent: Patient has given verbal consent. Description/ repair Laceration: Location: Midline occiput. 1 cm in length. Shape: Linear. Depth: Superficial. Details: clean, no foreign material. Neurovascular/ tendon exam: intact. Anesthesia: None Irrigation: wound irrigated copiously with normal saline with pressure cap. Debridement: none. Skin closure: 1 staple Post procedure exam: Circulation, motor, sensory examination intact, Bleeding controlled. Complications: None. Patient tolerated: Well. Performed by: Valdo Gomez DO. labs appear reassuring, laceration repaired, patient otherwise stable and appears well clinically, awaiting urine sample prior to dc. 0600: Transfer of care to Dr. Polo at this time Patient's current medical course discussed in rounds and patient is currently updated with medical plan Pending UA (VALDO GOMEZ DO) Course & Med Decision Making 0600-signout given by Dr. Gomez for patient status post fall striking her head with scalp laceration. Scalp laceration previously repaired with valerie. CT head without acute process. Patient pending laboratory values. Labs reviewed and posted to chart. Patient seen and evaluated by myself. Patient requesting Tylenol. Tylenol provided. Hyperglycemia addressed. Concern symptoms might be secondary to orthostatic hypotension possibly due to diet dehydration from hyperglycemia. Insulin provided. Patient previously received IV fluid hydration. We will continue IV fluid hydration. Patient requiring admission for further evaluation and treatment. Discussed with Dr. Her (application infrastructure engineer for Dr. Baker, PCP) who is in agreement with admission. Discussed findings and plan with patient and family, who acknowledge understanding and agreement. (SHANNON POLO DO) Departure Departure Impression: Primary Impression: Syncope Qualified Codes: R55 - Syncope and collapse Additional Impressions: Occipital scalp laceration Qualified Codes: S01.01XA - Laceration without foreign body of scalp, initial encounter Hyperglycemia Disposition: ADMITTED INPATIENT Admitting Physician: James Her (application infrastructure engineer for Dr. Baker) (SHANNON POLO DO) Condition: STABLE Referrals: EULOGIO BAKER MD NIHSS Stroke Scale NIH Stroke Scale: NIH Stroke Scale Response (Comments) Value Level of Consciousness: 0 Alert/Responsive 0 LOC Questions: 0 Answers both correctly 0 LOC Commands: 0 Performs both tasks 0 Best Gaze: 0 Normal 0 Visual: 0 No visual loss 0 Facial Palsy: 0 Normal, symmetrical 0 Motor - Left Arm 0 No drift 0 Motor - Right Arm 0 No drift 0 Motor - Left Leg 0 No drift 0 Motor: Right Leg 0 No drift 0 Limb Ataxia: 0 Absent 0 Sensory: 0 No loss 0 Best Language: 0 Normal 0 Dysathria: 0 Normal 0 Extinction and Inattention: 0 Normal 0 Total 0 VALDO GOMEZ DO Jun 27, 2021 04:49 SHANNON POLO DO Jun 27, 2021 08:21
[2021-06-27] MEDS ORDERED: ONDANSETRON PF 4 MG/2 ML VIAL. IVP ONE (05:00)
[2021-06-27 05:02] LABS: BASO # 0.1 x10^3/uL (0.0-0.2); BASO % 1 % (0-3); EOS # 0.1 x10^3/uL (0.0-0.7); EOS % 1 % (0-3); HEMATOCRIT 28.1 % (36.0-47.0); HEMOGLOBIN 9.3 g/dL (12.0-15.5); LYMPH # 2.6 x10^3/uL (1.0-4.8); LYMPH % 26 % (24-48); MEAN CORPUSCULAR HEMOGLOBIN 27 pg (25-35); MEAN CORPUSCULAR HGB CONC 33 g/dL (31-37); MEAN CORPUSCULAR VOLUME 82 fL (79-100); MONO # 0.5 x10^3/uL (0.0-1.1); MONO % 6 % (0-9); NEUT # 6.4 x10^3/uL (1.8-7.7); NEUT % 66 % (31-73); PLATELET COUNT 203 x10^3/uL (140-400); RED BLOOD COUNT 3.43 x10^6/uL (3.50-5.40); RED CELL DISTRIBUTION WIDTH 15.3 % (11.5-14.5); WHITE BLOOD COUNT 9.7 x10^3/uL (4.0-11.0)
[2021-06-27 05:15] LABS: CALCIUM 8.8 mg/dL (8.5-10.1); GFR 55.5; POTASSIUM 4.6 mmol/L (3.5-5.1)
--- NOTE | 2021-06-27 05:34 | RAD ---
EXAMINATION: CT HEAD/BRAIN WO CLINICAL HISTORY: Head trauma TECHNIQUE: Serial axial images without IV contrast were obtained from the vertex to the foramen magnu m. CT Dose Reduction Employed: One or more of the following individualized dose reduction techniques wer e utilized for this examination: 1. Automated exposure control 2. Adjustment of the mA and/or kV ac cording to patient size 3. Use of iterative reconstruction technique. COMPARISON: None FINDINGS: Acute Change: No evidence of an acute contusion or other acute parenchymal process. Hemorrhage: No evidence of acute intracranial hemorrhage. Mass Lesion/Mass Effect: No evidence of intracranial mass or extraaxial fluid collection. No signific ant mass effect. Chronic Change: Scattered patchy foci of hypoattenuation in the supratentorial white matter, nonspeci fic but likely represents mild microvascular ischemia. Atherosclerotic calcification of the bilateral carotid siphons. Parenchyma: Mild generalized volume loss. Ventricles: Ventricular enlargement concordant with degree of parenchymal volume loss. Paranasal Sinuses and Skull Base: Visualized paranasal sinuses clear. Visualized skull base and soft tissues unremarkable. IMPRESSION: No evidence of acute intracranial abnormality. Electronically signed by: Milton Nugent DO (06/27/2021 5:32 AM) RUDY
--- NOTE | 2021-06-27 05:36 | RAD ---
EXAMINATION: XR CHEST 1V CLINICAL HISTORY: Syncope EXAM DATE/TIME: 06/27/2021 4:51 AM COMPARISON: None FINDINGS: Lines, Tubes, and Devices: None. Cardiomediastinal Silhouette: Normal heart size. Aortic atherosclerotic calcification. Lungs and Pleura: No evidence of focal airspace consolidation or pleural effusion. Pulmonary vasculat ure unremarkable. Bones and Soft Tissues: Degenerative changes in the thoracic spine. IMPRESSION: No evidence of acute cardiopulmonary abnormality or significant interval change. Electronically signed by: Milton Nugent DO (06/27/2021 5:33 AM) OPHELIA
[2021-06-27] MEDS ORDERED: ACETAMINOPHEN 500 MG TABLET PO ONE (06:45)
[2021-06-27 07:41] LABS: BILIRUBIN,URINE NEGATIVE (NEG); CLARITY,URINE CLOUDY; COLOR,URINE YELLOW; NITRITE,URINE NEGATIVE (NEG); PROTEIN,URINE NEGATIVE (NEG-TRACE); UROBILINOGEN,URINE 0.2 mg/dL (0.2 mg/dL)
[2021-06-27 08:06] LABS: BACTERIA,URINE 0 /HPF (0-FEW); RBC,URINE 0 /HPF (0-2)
[2021-06-27] MEDS ORDERED: ONDANSETRON PF 4 MG/2 ML VIAL. IVP PRN (08:30)
[2021-06-27] MEDS ORDERED: ACETAMINOPHEN 325 MG TABLET. PO PRN (08:30)
[2021-06-27] MEDS ORDERED: INSULIN REGULAR 100 UNIT/ML 3ML VIAL. SQ ONE (08:30)
[2021-06-27] MEDS ORDERED: ASPIRIN ENTERIC COATED 325 MG TABLET.DR. PO ONE (08:45)
[2021-06-27] MEDS ORDERED: DEXTROSE 50% 25 GM / 50ML DISP.SYRIN. IV PRN (08:45)
[2021-06-27 11:00] VITALS: BP_SYST 123; BP_SYST 124; BP_SYST 167; BP_DIAS 33; BP_DIAS 65; BP_DIAS 69
[2021-06-27] MEDS: HEPARIN for SUB-Q USE 5,000 UNIT/ML VIAL. SQ SCH ×2 (11:40→20:57)
[2021-06-27] MEDS: INSULIN LISPRO 300 UNITS/3 ML VIAL. SQ SCH ×2 (11:40→18:02)
[2021-06-27] MEDS: ACETAMINOPHEN 325 MG TABLET. PO PRN ×2 (11:54→18:35)
[2021-06-27] MEDS: PANTOPRAZOLE 40 MG TABLET.DR. PO SCH (11:56)
[2021-06-27] MEDS: metFORMIN 500 MG TABLET PO SCH ×2 (11:56→17:54)
[2021-06-27] MEDS ORDERED: ASPIRIN CHEWABLE 81 MG TABLET. PO SCH (12:00)
--- NOTE | 2021-06-27 12:00 | NUR ---
The patient, LINDA TAYLOR, 66 y/o, F admitted by YOSSI CONCEPCION MD, was given written information regarding hospital policies, unit procedures and contact persons. She arrived on the unit at 1030 from ED via stretcher. The patient is awake, alert, oriented x3, and denies pain. Blood glucose was high, insulin given per order. Home meds were reviewed and her belongings checked.
--- NOTE | 2021-06-27 12:23 | PDOC2 ---
CARDIOLOGY CONSULT NOTE DATE OF SERVICE: DATE: 06/27/21 TIME: 12:19 CHIEF COMPLAINT: Passing out HPI: Ms. Ha is a 66-year-old woman who comes into the hospital in the setting of a syncopal episode. She reports that over the last few days she has had some low blood pressures at home and has been dizzy. In this setting while she was trying to plug her phone and going to bed she reportedly fell backwards and hit her head on the dresser and she lost consciousness. She thinks that she lost consciousness for a few seconds maybe up to a minute and her granddaughter came to help her and she woke up. Upon arrival to the ER she was noted to be mildly hypotensive but no obvious pathology was noted. Her initially managing evaluation was unremarkable. She has been admitted for further treatment. Thus far orthostatics have been negative. She does have a known aortic stenosis murmur and has not had any further evaluation regarding this. She reports chronic dyspnea and fatigue but no obvious angina. Of note this is her second episode of syncope and the previous one occurred approximately 5 years ago in a similar situation. PMHX: 1. Hypertension 2. Dyslipidemia 3. Known aortic valve murmur 4. Diabetes SOCHX: No alcohol, tobacco or illicit drug use. FAMHX: Noncontributory CURRENT MEDS: Current Medications Medications (Trade) Dose Ordered Sig/Royer Route PRN Reason Start Time Stop Time Status Last Admin Dose Admin Sodium Chloride 1,000 ml @ 1,000 mls/hr 1X ONCE IV 06/27/21 04:45 06/27/21 05:44 DC 06/27/21 05:31 Ondansetron HCl (Zofran) 4 mg 1X ONCE IVP 06/27/21 05:00 06/27/21 05:01 DC 06/27/21 05:31 Acetaminophen (Tylenol) 500 mg 1X ONCE PO 06/27/21 06:45 06/27/21 06:47 DC 06/27/21 07:55 Aspirin (Ecotrin) 325 mg 1X ONCE PO 06/27/21 08:45 06/27/21 08:53 DC 06/27/21 09:44 Sodium Chloride 1,000 ml @ 100 mls/hr 1X ONCE IV 06/27/21 08:45 06/27/21 18:44 06/27/21 09:48 Metformin HCl (Glucophage) 1,000 mg BIDWMEALS PO 06/27/21 12:00 06/27/21 11:56 Acetaminophen (Tylenol) 650 mg PRN Q6HRS PRN PO MILD PAIN / TEMP > 100.3'F 06/27/21 10:15 06/27/21 11:54 Pantoprazole Sodium (Protonix) 40 mg DAILYAC PO 06/27/21 11:30 06/27/21 11:56 ALLERGIES: Allergies Coded Allergies Type Severity Reaction Last Updated Verified morphine Allergy Intermediate hallucinations 03/18/19 No ROS: Negative for 10 out of 14 systems reviewed unless otherwise mentioned above in PHYSICAL EXAM: Vital Signs/I&O: Vital Signs Date Time Temp Pulse Resp B/P (MAP) Pulse Ox O2 Delivery O2 Flow Rate FiO2 06/27/21 11:00 97.8 116 18 123/65 (84) 97 Room Air 97.8 124/69 (87) 167/33 (77) Physical Exam: GEN.: No apparent distress. Alert and oriented. HEENT: Head is normocephalic, atraumatic NECK: Supple. LUNGS: Clear to auscultation. HEART: RRR, S1, S2 present. Peripheral pulses intact. She has a 3 out of 6 to 4 out of 6 systolic murmur suggestive of moderate aortic stenosis ABDOMEN: Soft, nontender. Positive bowel sounds. EXTREMITIES: Without any cyanosis. NEUROLOGIC: Normal speech, normal tone PSYCHIATRIC: Normal affect, normal mood. SKIN: No ulcerations DIAGNOSTIC TESTING: EKG is unavailable for review but telemetry reveals sinus rhythm Labs are notable for anemia and otherwise normal renal function Patient is currently not orthostatic but she does have low blood pressures. ASSESSMENT: 1. Syncope: Likely vasovagal secondary to either hypotension or diabetic neuropathy. 2. Dyslipidemia 3. Type 2 diabetes 4. Moderate aortic stenosis PLAN: 1. Continue telemetry monitoring. Hold antihypertensives for now 2. Plan for a routine echocardiogram and depending on results we will proceed with further evaluation 3. Depending on her echo results could consider outpatient loop recorder implantation for chronic monitoring for recurrent syncope of unclear etiology. Thank you for this consultation. We will follow along closely. SUE HSU MD Jun 27, 2021 12:23
--- NOTE | 2021-06-27 12:54 | PDOC ---
Provider Note Date of Service: DATE: 06/27/21 TIME: 12:54 Provider Note H&P dictated #[id number]. Scalp laceration repaired in the emergency room. Justifications for Admission Other Justification YOSSI CONCEPCION MD Jun 27, 2021 12:54
--- NOTE | 2021-06-27 14:27 | HP ---
ADMIT DATE: 06/27/2021 ADMITTING PHYSICIAN: Hector Alvarado MD HISTORY OF PRESENT ILLNESS: This 66-year-old female started having dizziness for the last several days. Last night, she passed out and hit her head. She was brought to the Emergency Room after ambulance was called by the family. She had one stitch taken on the scalp. She did have some nausea after her injury, but prior to that she did not have any nausea. She denies any cold, cough, congestion, chest pains, palpitations, dyspnea or diaphoresis. No signs or symptoms suggestive of focal neurovascular deficit. In the Emergency Room, her WBC count was 9.7, hemoglobin 9.3, MCV 82. Sodium 135, potassium 4.6, BUN is 55, creatinine 1, BNP 1628, troponin 0.025, glucose 366 and 318, both rapid SARS-CoV-2 antigen test as well as SARS-CoV-2 RNA test are negative. Urinalysis is negative. CT scan of head and chest x-ray are unremarkable. Because of the syncope and dehydration, the patient is admitted for further evaluation and management. PAST MEDICAL HISTORY: The patient has a history of hypertension, hyperlipidemia, moderate aortic stenosis, diabetes mellitus type 2 - not controlled, history of osteoarthritis, anxiety. PAST SURGICAL HISTORY: Includes tubal ligation, hysterectomy, skin cancer from the nose removed, left elbow repair, lumbar decompression, carpal tunnel surgery, bowel surgery. SOCIAL HISTORY: No history of smoking, alcoholism, or drug abuse. PHYSICAL EXAMINATION: GENERAL: The patient is an elderly female who is alert, oriented x 3, and not in acute distress. VITAL SIGNS: On admission, temperature 97.6, pulse 91 per minute, respirations 16 per minute, blood pressure 119/67 mmHg. This morning, blood pressure is 123/65 supine, 124/69 standing with pulse of 87 per minute and 167/33 standing with pulse of 77 per minute, pulse was 84 per minute when she was lying down. EYES: Pupils reactive to light. Conjunctivae pink. Sclerae white. The patient has a laceration of the scalp on the occiput and has one staple. HENT: Unremarkable. NECK: Supple. JVP normal. No thyromegaly. Trachea midline. No carotid bruit noted. LUNGS: Clear. CARDIOVASCULAR SYSTEM: S1, S2 regular. Has a heart murmur. ABDOMEN: Soft, nontender, no guarding, no rigidity. Bowel sounds present. EXTREMITIES: No edema, no cyanosis, no calf tenderness. CENTRAL NERVOUS SYSTEM: Alert and oriented, moves all extremities. Gait not tested. Cranial nerves 2-12 unremarkable. LABORATORY AND DIAGNOSTIC DATA: Lab findings as noted earlier. IMPRESSION: 1. Syncope, etiology not clear. 2. History of moderate aortic stenosis. 3. Dehydration. 4. Diabetes mellitus type 2, not controlled. 5. Hypertension. The patient does not have any orthostatic hypotension. 6. Osteoarthritis. PLAN: Dehydration. BUN is 55, creatinine 1. The patient states that she has not been taking any Lasix for quite some time. It is on her medication list; so I have discontinued it. Encouraged to increase fluids. Continue IV fluids. Blood sugar is high. We will give her 15 units of Levemir now. Continue regular dose as at home, but may need to adjust if blood sugar remains high. Consult Dr. Burton for cardiology evaluation and management. He is going to order echocardiogram and may need to place a loop recorder to monitor because of syncope. Consult Dr. Morales for neurology evaluation and management as the patient does not have any other reasons for syncope. I will also go ahead and recheck labs in a.m. Order carotid sonogram. For details, please refer to the orders. CORI/ORRadha DR: Ashley TID: [id number] CC: HECTOR ALVARADO MD
[2021-06-27 15:00] VITALS: BP_SYST 105; BP_SYST 123; BP_SYST 86; BP_DIAS 47; BP_DIAS 60; BP_DIAS 66
--- NOTE | 2021-06-27 16:09 | PDOC2 ---
Consult: Verito Ha is a pleasant 66-year-old woman who has been experiencing dizziness when she stands for quite some time. She has had difficulty with balance as well. She is worried she has Parkinson's disease because she has noticed some minor tremor. She had tried to get out of bed and fell back and struck her head. Her granddaughter lives below her and heard her fall and came to investigate. She awoke immediately and was not confused. She was brought to the emergency room because she had some bleeding on her scalp. She did require a stitch. She states she has been drinking regularly and her urine is generally clear. She does have longstanding diabetes. She also has impaired vision due to macular degeneration. She was treated for a urinary tract infection a week ago and received antibiotics. 1. Hypertension 2. Hyperlipidemia 3. Type 2 diabetes, poorly controlled 4. Osteoarthritis 5. Moderate aortic stenosis 6. Anxiety 7. Bilateral tubal ligation 8. Hysterectomy 9. History of lumbar decompression 10. Carpal tunnel release surgery 11. Skin cancer resection from her nose 12. Left elbow repair 13. Bowel surgery Family history noncontributory Social history: She does not smoke tobacco, drink alcohol or use recreational drugs. She lives with her granddaughter. Medications prior admission: Aspirin 81 mg Atorvastatin 40 mg Metformin 1000 mg twice per day Allergies: Morphine Review of systems: Constitutional: Negative Eyes: Negative HENT: Negative Respiratory: Negative Cardiovascular: She is lightheaded when she stands. If she stands long enough she becomes hot and sweaty. GI: Negative : Negative Musculoskeletal: Negative Neurologic: She has noted some tremor. Hematologic: Negative Lymphatic: Negative Psychiatric: Negative Examination: She was alert, awake and cooperative. Speech was fluent and clear. She had a good fund of recent and remote knowledge. Attention and concentration was intact. She appeared well groomed and well nourished. She was fully oriented. Examination of the cranial nerves revealed visual frederick were full to confrontation. Extraocular movements were intact. The eyes were conjugate. Pursuit movements were smooth and saccadic eye movements were without dysmetria. There was no nystagmus. Pupils were 3 mm and reacted directly and consensually. Funduscopic examination did not reveal papilledema. Facial sensation was intact bilaterally. The muscles of mastication and facial expression were powerful symmetrically. Hearing was intact to finger rub. The palate arched symmetrically and the tongue was midline with full motion. Sternocleidomastoid and trapezius were powerful. Muscle bulk and tone was normal. There was no arm or leg drift. With the outstretched hand she had a very low amplitude, high-frequency irregular tremor. Power was full and symmetric in the upper and lower extremities. Reflexes were 1/4 and symmetric in the upper extremities and at the knees but absent at both ankles. The toes were downgoing bilaterally. Coordination testing with [id number], [id number], fine motor and rapid alternating movements was well performed. Sensory exam was intact to pain, light touch, proprioception, graphesthesia, cold thermal and vibration. She felt she did not perceive cold as well and parts of her left lower calf. There was no extinction to double simultaneous stimulation. She became dizzy when she stood up. With balance support she could stand on heels or toes. Pulse became thready and difficult to palpate with standing. Auscultation of the carotid arteries did not reveal a bruit. Heart rhythm was regular without a murmur. Peripheral pulses were symmetric in the hands and feet. There was no edema or cyanosis. Impression: Verito Ha is a 66-year-old woman who becomes lightheaded and dizzy with standing. If she stands for longer she will become hot and sweaty. It sounds as if she is orthostatic and becoming vasovagal. This spell does not represent a seizure. She was not postictal. She is never had any witnessed convulsive activity. She was also concerned she had Parkinson's disease because of the tremor. This is not the tremor seen with Parkinson's plus she does not have bradykinesia or rigidity. Her neurologic exam revealed evidence of some peripheral neuropathy likely from diabetes. Her pulse does seem to diminish when she stands suggesting she might be orthostatic. Recommendations: I would measure orthostatic blood pressures lying flat for 15 minutes, immediate standing and standing for 5 minutes to see if in fact she is decompensating. Echocardiogram is pending. She may have autonomic neuropathy from the diabetes which could be affecting her blood pressure adversely when she stands. I appreciate being involved in her care. MATT BARNHART MD Jun 27, 2021 16:08
[2021-06-27] MEDS ORDERED: GABA100C6 PO (16:25)
[2021-06-27] MEDS ORDERED: FLUO20CA16 PO (16:25)
[2021-06-27] MEDS ORDERED: INSU100V13 SQ (16:26)
[2021-06-27] MEDS ORDERED: UBID100C26 PO (17:00)
[2021-06-27] MEDS ORDERED: MULT-55 PO (17:00)
[2021-06-27] MEDS: IV NORMAL SALINE 1000ML BAG 1,000 ML IV SCH ×2 (17:53→20:15)
[2021-06-27 19:00] VITALS: BP_SYST 110; BP_SYST 118; BP_SYST 120; BP_DIAS 58; BP_DIAS 60; BP_DIAS 64
[2021-06-27] MEDS: MECLIZINE HCL 12.5 MG TABLET. PO PRN (20:55)
[2021-06-27] MEDS: ATORVASTATIN CALCIUM 40 MG TABLET. PO SCH (20:55)
[2021-06-27] MEDS: HYDROcodone/APAP 5/325MG 1 TAB TABLET PO PRN (20:55)
[2021-06-27] MEDS: DICYCLOMINE HCL 10 MG CAPSULE PO PRN (20:55)
[2021-06-27] MEDS ORDERED: INSULIN GLARGINE SYRINGE. SQ SCH (21:00)
[2021-06-27] MEDS ORDERED: INSULIN GLARGINE SYRINGE. SQ ONE (21:00)
[2021-06-27 23:00] VITALS: BP 108/54
[2021-06-28] VITALS (13 sets, daily range): BP systolic 96–134; BP diastolic 51–67
[2021-06-28] MEDS: IV NORMAL SALINE 1000ML BAG 1,000 ML IV SCH ×2 (03:39→21:35)
[2021-06-28] MEDS: HYDROcodone/APAP 5/325MG 1 TAB TABLET PO PRN ×3 (03:43→21:36)
[2021-06-28] MEDS: PANTOPRAZOLE 40 MG TABLET.DR. PO SCH (03:43)
--- NOTE | 2021-06-28 07:25 | RAD ---
EXAM: Bilateral carotid duplex with waveform analysis. CLINICAL HISTORY: Reason: Syncope; dizziness-fall / Spl. Instructions: / History: . . TECHNIQUE: Longitudinal and transverse sonographic images of the bilateral carotid arteries was perfo rmed utilizing grayscale, color and spectral Doppler techniques. COMPARISON: None FINDINGS: Right Carotid: Minimal plaque is seen. There is no evidence of significant narrowing. Left Carotid: Minimal plaque is seen. There is no evidence of significant narrowing. Vertebrals: Antegrade flow bilaterally. Right: PSV CCA (cm/s): 85 PSV ICA (cm/s): 98 EDV ICA (cm/s): 26 PSV ECA (cm/s): 93 ICA/CCA Ratio: 1.13 Left: PSV CCA (cm/s): 84 PSV ICA (cm/s): 105 EDV ICA (cm/s): 45 PSV ECA (cm/s): 95 ICA/CCA Ratio: 1.25 IMPRESSION: No evidence of significant stenosis. Consensus Panel Cast-scale and Doppler US Criteria for Diagnosis of ICA Stenosis Degree of Stenosis (%) ICA PSV (Cm/sec) Plaque Estimate (%)* Normal <125 None <50 <125 <50 50-69 125-230 >50 >70 but < near occlusion >230 >50 Near occlusion High, low, or undetectable Visible Total occlusion Undetectable Visible, no detectable lumen *Plaque estimate (diameter reduction) with cast-scale and color Doppler US Degree of Stenosis (%) ICA/CCA PSV Ratio ICA EDV (cm/sec) Normal <2.0 <40 <50 <2.0 <40 50-69 2.0-4.0 40-100 >70 but < near occlusion >4.0 >100 Near occlusion Variable Variable Total occlusion Not applicable Not applicable Electronically signed by: Sp Lennon Jr., MD (06/28/2021 7:23 AM) [id number]
[2021-06-28 08:05] LABS: BASO % 0 % (0-3); EOS # 0.2 x10^3/uL (0.0-0.7); EOS % 3 % (0-3); LYMPH # 1.7 x10^3/uL (1.0-4.8); LYMPH % 23 % (24-48); MEAN CORPUSCULAR HEMOGLOBIN 28 pg (25-35); MEAN CORPUSCULAR HGB CONC 34 g/dL (31-37); MEAN CORPUSCULAR VOLUME 82 fL (79-100); MONO # 0.4 x10^3/uL (0.0-1.1); MONO % 6 % (0-9); NEUT # 5.2 x10^3/uL (1.8-7.7); NEUT % 69 % (31-73); PLATELET COUNT 103 x10^3/uL (140-400); RED BLOOD COUNT 2.26 x10^6/uL (3.50-5.40); RED CELL DISTRIBUTION WIDTH 15.2 % (11.5-14.5); WHITE BLOOD COUNT 7.6 x10^3/uL (4.0-11.0)
[2021-06-28 08:15] LABS: ALBUMIN 2.1 g/dL (3.4-5.0); ALBUMIN/GLOBULIN RATIO 0.7 (1.0-1.7); CALCIUM 7.9 mg/dL (8.5-10.1); CREATININE 0.8 mg/dL (0.6-1.0); GFR 71.8; MAGNESIUM 1.4 mg/dL (1.8-2.4); POTASSIUM 4.4 mmol/L (3.5-5.1); TOTAL BILIRUBIN 0.2 mg/dL (0.2-1.0)
[2021-06-28 08:41] LABS: HEMATOCRIT 18.6 % (36.0-47.0); HEMOGLOBIN 6.2 g/dL (12.0-15.5)
[2021-06-28] MEDS: metFORMIN 500 MG TABLET PO SCH ×2 (08:45→18:07)
[2021-06-28] MEDS ORDERED: ESTROGENS, CONJUGATED 0.625 MG TABLET PO SCH (09:00)
--- NOTE | 2021-06-28 09:54 | PDOC ---
IM PROGRESS NOTES- Subjective Subjective c/o dizziness. No c/o chest pain,GI bleeding,jenn. Objective Vitals/I&O Vital Signs Date Time Temp Pulse Resp B/P (MAP) Pulse Ox O2 Delivery O2 Flow Rate FiO2 06/28/21 07:00 99.1 109 18 131/66 (87) 97 Room Air 99.1 I & O 06/27/21 06/27/21 06/28/21 15:00 23:00 07:00 Intake Total 1340 ml 760 ml 360 ml Balance 1340 ml 760 ml 360 ml Physical Exam Physical Exam General Appearance - alert and in no distress Chest - decreased breath sounds at bases Heart - S1 and S2 normal Abdomen - soft, non tender Neurological - alert and oriented Musculoskeletal - generalized weakness Extremities - no edema Labs Laboratory Tests Test 06/27/21 10:00 06/27/21 10:49 06/27/21 12:41 06/27/21 13:20 SARS-CoV-2 RNA (WARD) Negative (Negative) SARS-CoV-2 Antigen (Rapid) Negative (NEGATIVE) Glucose (Fingerstick) 318 mg/dL (70-99) H 408 mg/dL (70-99) H Troponin I Quantitative 0.040 ng/mL (0.000-0.055) Test 06/27/21 16:05 06/27/21 16:32 06/27/21 21:07 06/28/21 06:35 Troponin I Quantitative 0.032 ng/mL (0.000-0.055) Glucose (Fingerstick) 264 mg/dL (70-99) H 304 mg/dL (70-99) H White Blood Count 7.6 x10^3/uL (4.0-11.0) Red Blood Count 2.26 x10^6/uL (3.50-5.40) L Hemoglobin 6.2 g/dL (12.0-15.5) *L Hematocrit 18.6 % (36.0-47.0) *L Mean Corpuscular Volume 82 fL (79-100) Mean Corpuscular Hemoglobin 28 pg (25-35) Mean Corpuscular Hemoglobin Concent 34 g/dL (31-37) Red Cell Distribution Width 15.2 % (11.5-14.5) H Platelet Count 103 x10^3/uL (140-400) L Neutrophils (%) (Auto) 69 % (31-73) Lymphocytes (%) (Auto) 23 % (24-48) L Monocytes (%) (Auto) 6 % (0-9) Eosinophils (%) (Auto) 3 % (0-3) Basophils (%) (Auto) 0 % (0-3) Neutrophils # (Auto) 5.2 x10^3/uL (1.8-7.7) Lymphocytes # (Auto) 1.7 x10^3/uL (1.0-4.8) Monocytes # (Auto) 0.4 x10^3/uL (0.0-1.1) Eosinophils # (Auto) 0.2 x10^3/uL (0.0-0.7) Basophils # (Auto) 0.0 x10^3/uL (0.0-0.2) Sodium Level 138 mmol/L (136-145) Potassium Level 4.4 mmol/L (3.5-5.1) Chloride Level 106 mmol/L (98-107) Carbon Dioxide Level 27 mmol/L (21-32) Anion Gap 5 (6-14) L Blood Urea Nitrogen 34 mg/dL (7-20) H Creatinine 0.8 mg/dL (0.6-1.0) Estimated GFR (Cockcroft-Gault) 71.8 BUN/Creatinine Ratio 43 (6-20) H Glucose Level 215 mg/dL (70-99) H Calcium Level 7.9 mg/dL (8.5-10.1) L Magnesium Level 1.4 mg/dL (1.8-2.4) L Total Bilirubin 0.2 mg/dL (0.2-1.0) Aspartate Amino Transferase (AST) 17 U/L (15-37) Alanine Aminotransferase (ALT) 26 U/L (14-59) Alkaline Phosphatase 53 U/L (46-116) Total Protein 5.0 g/dL (6.4-8.2) L Albumin 2.1 g/dL (3.4-5.0) L Albumin/Globulin Ratio 0.7 (1.0-1.7) L Test 06/28/21 08:25 Glucose (Fingerstick) 198 mg/dL (70-99) H Laboratory Tests 06/28/21 06:35 Laboratory Tests 06/28/21 06:35 Meds Current Medications Medications (Trade) Dose Ordered Sig/Royer Route PRN Reason Start Time Stop Time Status Last Admin Dose Admin Insulin Human Lispro (HumaLOG) 0-5 UNITS TIDWMEALS SQ 06/27/21 12:00 06/28/21 08:47 DC 06/27/21 18:02 Atorvastatin Calcium (Lipitor) 40 mg QHS PO 06/27/21 21:00 06/27/21 20:55 Dicyclomine HCl (Bentyl) 10 mg PRN Q6HRS PRN PO PAIN 06/27/21 10:15 06/27/21 20:55 Acetaminophen/ Hydrocodone Bitart (Lortab 5/325) 1 tab PRN Q6HRS PRN PO SEVERE PAIN 7-10 06/27/21 10:15 06/28/21 03:43 Metformin HCl (Glucophage) 1,000 mg BIDWMEALS PO 06/27/21 12:00 06/28/21 08:45 Insulin Glargine (Lantus Syringe) 15 unit HS SQ 06/27/21 21:00 06/28/21 08:45 DC 06/27/21 21:10 Acetaminophen (Tylenol) 650 mg PRN Q6HRS PRN PO MILD PAIN / TEMP > 100.3'F 06/27/21 10:15 06/27/21 18:35 Pantoprazole Sodium (Protonix) 40 mg DAILYAC PO 06/27/21 11:30 06/28/21 03:43 Sodium Chloride 1,000 ml @ 100 mls/hr Q10H IV 06/27/21 10:15 06/28/21 03:39 Heparin Sodium (Porcine) (Heparin Sodium) 5,000 unit Q12HR SQ 06/27/21 11:00 06/27/21 20:57 Meclizine HCl (Antivert) 25 mg PRN Q6HRS PRN PO DIZZINESS 06/27/21 12:45 06/27/21 20:55 Assessment Assessment 1. Syncope, etiology not clear. 2. History of moderate aortic stenosis. 3. Dehydration. 4. Diabetes mellitus type 2, not controlled. 5. Hypertension. The patient does not have any orthostatic hypotension. 6. Osteoarthritis. PLAN: Dehydration. Improving. BUN is 55- to 34., creatinine 1. The patient states that she has not been taking any Lasix for quite some time. It is on her medication list; so I have discontinued it. Encouraged to increase fluids. Continue IV fluids. Blood sugar is high. Increase Lantus,high dose SSI. Hb A1C. Anemia- acute on chronic blood loss- etiology not clear. Type and crossw and transfuse 2 units PRBCs. Stoo- fecal occult. GI consult. This is not magnus to scalp injury. Dizziness- due to dehydration,anemia. Carotid doppler negative. Consult Dr. Burton for cardiology evaluation and management. He is going to order echocardiogram and may need to place a loop recorder to monitor because of syncope. Consult Dr. Morales for neurology evaluation and management as the patient does not have any other reasons for syncope. I will also go ahead and recheck labs in a.m. Order carotid sonogram. For details, please refer to the orders. Plan Plan For more details regarding further plans, please refer to the orders. Justifications for Admission Other Justification YOSSI CONCEPCION MD Jun 28, 2021 09:54
--- NOTE | 2021-06-28 10:39 | PDOC ---
PROGRESS NOTES Date of Service DATE: 06/28/21 TIME: 10:36 Assessment Problems Medical Problems: (1) Hyperglycemia Status: Acute (2) Occipital scalp laceration Status: Acute (3) Syncope Status: Acute Orthostatic hypotension as recorded on vital signs yesterday, a manifestation most likely of diabetic neuropathy She does have peripheral neuropathy from diabetes as well Essential tremor, none on exam now, no evidence of Parkinson's or multiple system atrophy Plan Regulate blood pressure per cardiology, consider use of midodrine 9 Physical therapy No treatment for essential tremor required at this point Subjective Still feels lightheaded when she stands up Objective Vital Signs Date Time Temp Pulse Resp B/P (MAP) Pulse Ox O2 Delivery O2 Flow Rate FiO2 06/28/21 07:00 99.1 109 18 131/66 (87) 97 Room Air 99.1 Intake and Output 06/28/21 07:00 Intake Total 2460 ml Balance 2460 ml Intake Oral 1460 ml IV Total 1000 ml # Voids 4 PHYSICAL EXAM Alert. Oriented to time, place and person. PERRL. EOMI. CN: no focal findings. Muscle tone: normal. Muscle strength: 5/5 DTR: 1+ Plantar reflex: Flexor Gait: not examined in bed. Sensory exam: Stocking loss. No cerebellar signs elicited. Review of Relevant I have reviewed the following items kota (where applicable) has been applied. Labs Laboratory Tests Test 06/27/21 04:55 06/27/21 07:15 06/27/21 10:00 06/27/21 10:49 White Blood Count 9.7 x10^3/uL (4.0-11.0) Red Blood Count 3.43 x10^6/uL (3.50-5.40) Hemoglobin 9.3 g/dL (12.0-15.5) Hematocrit 28.1 % (36.0-47.0) Mean Corpuscular Volume 82 fL (79-100) Mean Corpuscular Hemoglobin 27 pg (25-35) Mean Corpuscular Hemoglobin Concent 33 g/dL (31-37) Red Cell Distribution Width 15.3 % (11.5-14.5) Platelet Count 203 x10^3/uL (140-400) Neutrophils (%) (Auto) 66 % (31-73) Lymphocytes (%) (Auto) 26 % (24-48) Monocytes (%) (Auto) 6 % (0-9) Eosinophils (%) (Auto) 1 % (0-3) Basophils (%) (Auto) 1 % (0-3) Neutrophils # (Auto) 6.4 x10^3/uL (1.8-7.7) Lymphocytes # (Auto) 2.6 x10^3/uL (1.0-4.8) Monocytes # (Auto) 0.5 x10^3/uL (0.0-1.1) Eosinophils # (Auto) 0.1 x10^3/uL (0.0-0.7) Basophils # (Auto) 0.1 x10^3/uL (0.0-0.2) Sodium Level 135 mmol/L (136-145) Potassium Level 4.6 mmol/L (3.5-5.1) Chloride Level 100 mmol/L (98-107) Carbon Dioxide Level 27 mmol/L (21-32) Anion Gap 8 (6-14) Blood Urea Nitrogen 55 mg/dL (7-20) Creatinine 1.0 mg/dL (0.6-1.0) Estimated GFR (Cockcroft-Gault) 55.5 Glucose Level 366 mg/dL (70-99) Calcium Level 8.8 mg/dL (8.5-10.1) Troponin I Quantitative 0.025 ng/mL (0.000-0.055) NY-Rqb-L-Type Natriuretic Peptide 1628 pg/mL (0-124) Urine Collection Type Unknown Urine Color Yellow Urine Clarity Cloudy Urine pH 5.0 (<5.0-8.0) Urine Specific [place] 1.025 (1.000-1.030) Urine Protein Negative mg/dL (NEG-TRACE) Urine Glucose (UA) >=1000 mg/dL (NEG) Urine Ketones (Stick) Negative mg/dL (NEG) Urine Blood Negative (NEG) Urine Nitrite Negative (NEG) Urine Bilirubin Negative (NEG) Urine Urobilinogen Dipstick 0.2 mg/dL (0.2 mg/dL) Urine Leukocyte Esterase Negative (NEG) Urine RBC 0 /HPF (0-2) Urine WBC 1-4 /HPF (0-4) Urine Squamous Epithelial Cells Few /LPF Urine Bacteria 0 /HPF (0-FEW) SARS-CoV-2 RNA (WARD) Negative (Negative) SARS-CoV-2 Antigen (Rapid) Negative (NEGATIVE) Glucose (Fingerstick) 318 mg/dL (70-99) Test 06/27/21 12:41 06/27/21 13:20 06/27/21 16:05 06/27/21 16:32 Glucose (Fingerstick) 408 mg/dL (70-99) 264 mg/dL (70-99) Troponin I Quantitative 0.040 ng/mL (0.000-0.055) 0.032 ng/mL (0.000-0.055) Test 06/27/21 21:07 06/28/21 06:35 06/28/21 08:25 Glucose (Fingerstick) 304 mg/dL (70-99) 198 mg/dL (70-99) White Blood Count 7.6 x10^3/uL (4.0-11.0) Red Blood Count 2.26 x10^6/uL (3.50-5.40) Hemoglobin 6.2 g/dL (12.0-15.5) Hematocrit 18.6 % (36.0-47.0) Mean Corpuscular Volume 82 fL (79-100) Mean Corpuscular Hemoglobin 28 pg (25-35) Mean Corpuscular Hemoglobin Concent 34 g/dL (31-37) Red Cell Distribution Width 15.2 % (11.5-14.5) Platelet Count 103 x10^3/uL (140-400) Neutrophils (%) (Auto) 69 % (31-73) Lymphocytes (%) (Auto) 23 % (24-48) Monocytes (%) (Auto) 6 % (0-9) Eosinophils (%) (Auto) 3 % (0-3) Basophils (%) (Auto) 0 % (0-3) Neutrophils # (Auto) 5.2 x10^3/uL (1.8-7.7) Lymphocytes # (Auto) 1.7 x10^3/uL (1.0-4.8) Monocytes # (Auto) 0.4 x10^3/uL (0.0-1.1) Eosinophils # (Auto) 0.2 x10^3/uL (0.0-0.7) Basophils # (Auto) 0.0 x10^3/uL (0.0-0.2) Sodium Level 138 mmol/L (136-145) Potassium Level 4.4 mmol/L (3.5-5.1) Chloride Level 106 mmol/L (98-107) Carbon Dioxide Level 27 mmol/L (21-32) Anion Gap 5 (6-14) Blood Urea Nitrogen 34 mg/dL (7-20) Creatinine 0.8 mg/dL (0.6-1.0) Estimated GFR (Cockcroft-Gault) 71.8 BUN/Creatinine Ratio 43 (6-20) Glucose Level 215 mg/dL (70-99) Calcium Level 7.9 mg/dL (8.5-10.1) Magnesium Level 1.4 mg/dL (1.8-2.4) Iron Level 18 ug/dL (50-170) Total Iron Binding Capacity 254 ug/dL (250-450) Iron Saturation 7 % (15-34) Total Bilirubin 0.2 mg/dL (0.2-1.0) Aspartate Amino Transf (AST/SGOT) 17 U/L (15-37) Alanine Aminotransferase (ALT/SGPT) 26 U/L (14-59) Alkaline Phosphatase 53 U/L (46-116) Total Protein 5.0 g/dL (6.4-8.2) Albumin 2.1 g/dL (3.4-5.0) Albumin/Globulin Ratio 0.7 (1.0-1.7) Laboratory Tests Test 06/27/21 10:49 06/27/21 12:41 06/27/21 13:20 06/27/21 16:05 Glucose (Fingerstick) 318 mg/dL (70-99) 408 mg/dL (70-99) Troponin I Quantitative 0.040 ng/mL (0.000-0.055) 0.032 ng/mL (0.000-0.055) Test 06/27/21 16:32 06/27/21 21:07 06/28/21 06:35 06/28/21 08:25 Glucose (Fingerstick) 264 mg/dL (70-99) 304 mg/dL (70-99) 198 mg/dL (70-99) White Blood Count 7.6 x10^3/uL (4.0-11.0) Red Blood Count 2.26 x10^6/uL (3.50-5.40) Hemoglobin 6.2 g/dL (12.0-15.5) Hematocrit 18.6 % (36.0-47.0) Mean Corpuscular Volume 82 fL (79-100) Mean Corpuscular Hemoglobin 28 pg (25-35) Mean Corpuscular Hemoglobin Concent 34 g/dL (31-37) Red Cell Distribution Width 15.2 % (11.5-14.5) Platelet Count 103 x10^3/uL (140-400) Neutrophils (%) (Auto) 69 % (31-73) Lymphocytes (%) (Auto) 23 % (24-48) Monocytes (%) (Auto) 6 % (0-9) Eosinophils (%) (Auto) 3 % (0-3) Basophils (%) (Auto) 0 % (0-3) Neutrophils # (Auto) 5.2 x10^3/uL (1.8-7.7) Lymphocytes # (Auto) 1.7 x10^3/uL (1.0-4.8) Monocytes # (Auto) 0.4 x10^3/uL (0.0-1.1) Eosinophils # (Auto) 0.2 x10^3/uL (0.0-0.7) Basophils # (Auto) 0.0 x10^3/uL (0.0-0.2) Sodium Level 138 mmol/L (136-145) Potassium Level 4.4 mmol/L (3.5-5.1) Chloride Level 106 mmol/L (98-107) Carbon Dioxide Level 27 mmol/L (21-32) Anion Gap 5 (6-14) Blood Urea Nitrogen 34 mg/dL (7-20) Creatinine 0.8 mg/dL (0.6-1.0) Estimated GFR (Cockcroft-Gault) 71.8 BUN/Creatinine Ratio 43 (6-20) Glucose Level 215 mg/dL (70-99) Calcium Level 7.9 mg/dL (8.5-10.1) Magnesium Level 1.4 mg/dL (1.8-2.4) Iron Level 18 ug/dL (50-170) Total Iron Binding Capacity 254 ug/dL (250-450) Iron Saturation 7 % (15-34) Total Bilirubin 0.2 mg/dL (0.2-1.0) Aspartate Amino Transf (AST/SGOT) 17 U/L (15-37) Alanine Aminotransferase (ALT/SGPT) 26 U/L (14-59) Alkaline Phosphatase 53 U/L (46-116) Total Protein 5.0 g/dL (6.4-8.2) Albumin 2.1 g/dL (3.4-5.0) Albumin/Globulin Ratio 0.7 (1.0-1.7) Medications Current Medications Sodium Chloride 1,000 ml @ 1,000 mls/hr 1X ONCE IV Last administered on 06/27/21at 05:31; Start 06/27/21 at 04:45; Stop 06/27/21 at 05:44; Status DC Ondansetron HCl (Zofran) 4 mg 1X ONCE IVP Last administered on 06/27/21at 05:31; Start 06/27/21 at 05:00; Stop 06/27/21 at 05:01; Status DC Acetaminophen (Tylenol) 500 mg 1X ONCE PO Last administered on 06/27/21at 07:55; Start 06/27/21 at 06:45; Stop 06/27/21 at 06:47; Status DC Insulin Human Regular (HumuLIN R VIAL) 10 unit 1X ONCE SQ ; Start 06/27/21 at 08:30; Stop 06/27/21 at 08:53; Status DC Ondansetron HCl (Zofran) 4 mg PRN Q8HRS PRN IVP NAUSEA/VOMITING; Start 1 at 08:30; Stop 06/28/21 at 08:29; Status DC Acetaminophen (Tylenol) 650 mg PRN Q4HRS PRN PO FEVER > 100.3'F; Start 1 at 08:30; Stop 06/28/21 at 08:29; Status DC Insulin Human Lispro (HumaLOG) 0-5 UNITS TIDWMEALS SQ Last administered on 06/27/21at 18:02; Start 06/27/21 at 12:00; Stop 06/28/21 at 08:47; Status DC Dextrose (Dextrose 50%-Water Syringe) 12.5 gm PRN Q15MIN PRN IV SEE COMMENTS; Start 06/27/21 at 08:45 Aspirin (Ecotrin) 325 mg 1X ONCE PO Last administered on 06/27/21at 09:44; Start 06/27/21 at 08:45; Stop 06/27/21 at 08:53; Status DC Sodium Chloride 1,000 ml @ 100 mls/hr 1X ONCE IV Last administered on 06/27/21at 09:48; Start 06/27/21 at 08:45; Stop 06/27/21 at 18:44; Status DC Aspirin (Aspirin Chewable) 81 mg DAILY PO ; Start 06/27/21 at 12:00; Stop 06/28/21 at 09:58; Status DC Atorvastatin Calcium (Lipitor) 40 mg QHS PO Last administered on 06/27/21at 20:55; Start 06/27/21 at 21:00 Dicyclomine HCl (Bentyl) 10 mg PRN Q6HRS PRN PO PAIN Last administered on 06/27/21at 20:55; Start 06/27/21 at 10:15 Estrogens Conjugated (Premarin) 0.625 mg DAILY PO ; Start 06/28/21 at 09:00; Status Cancel Acetaminophen/ Hydrocodone Bitart (Lortab 5/325) 1 tab PRN Q6HRS PRN PO SEVERE PAIN 7-10 Last administered on 06/28/21at 03:43; Start 06/27/21 at 10:15 Metformin HCl (Glucophage) 1,000 mg BIDWMEALS PO Last administered on 06/28/21at 08:45; Start 06/27/21 at 12:00 Insulin Glargine (Lantus Syringe) 15 unit HS SQ Last administered on 06/27/21at 21:10; Start 06/27/21 at 21:00; Stop 06/28/21 at 08:45; Status DC Acetaminophen (Tylenol) 650 mg PRN Q6HRS PRN PO MILD PAIN / TEMP > 100.3'F Last administered on 06/27/21at 18:35; Start 06/27/21 at 10:15 Pantoprazole Sodium (Protonix) 40 mg DAILYAC PO Last administered on 06/28/21at 03:43; Start 06/27/21 at 11:30 Sodium Chloride 1,000 ml @ 75 mls/hr [id number] IV Last administered on 06/28/21at 03:39; Start 06/27/21 at 10:15 Heparin Sodium (Porcine) (Heparin Sodium) 5,000 unit Q12HR SQ Last administered on 06/27/21at 20:57; Start 06/27/21 at 11:00; Stop 06/28/21 at 09:58; Status DC Meclizine HCl (Antivert) 25 mg PRN Q6HRS PRN PO DIZZINESS Last administered on 06/27/21at 20:55; Start 06/27/21 at 12:45 Insulin Glargine (Lantus Syringe) 20 unit HS SQ ; Start 06/28/21 at 21:00 Insulin Human Lispro (HumaLOG) 0-20 UNITS TIDBFRMEAL SQ ; Start 06/28/21 at 11:30 Active Scripts Active Reported Hair, Skin & Nails (Multivitamin With Minerals) 1 Each Tablet 1 Each PO DAILY Coq-10 (Ubidecarenone) 100 Mg Capsule 100 Mg PO DAILY Levemir (Insulin Detemir) 100 Unit/1 Ml Vial 22 Unit SQ HS Gabapentin 100 Mg Capsule 1 Cap PO DAILY Prozac (Fluoxetine Hcl) 20 Mg Capsule 1 Cap PO [id number] Aspirin 81 Mg Tab.chew 1 Tab PO DAILY Metformin Hcl 500 Mg Tablet 2 Tab PO BID Atorvastatin Calcium 40 Mg Tablet 1 Tab PO DAILY Vitals/I & O Vital Sign - Last 24 Hours 06/27/21 06/27/21 06/27/21 06/27/21 11:00 15:00 19:00 20:00 Temp 97.8 97.8 97.0 97.8 97.8 97.0 Pulse 116 91 91 Resp 18 18 18 B/P (MAP) 123/65 (84) 123/60 (81) 120/64 (82) 124/69 (87) 105/66 (79) 118/60 (79) 167/33 (77) 86/47 (60) 110/58 (75) Pulse Ox 97 99 99 O2 Delivery Room Air Room Air Room Air Room Air 06/27/21 06/27/21 06/27/21 06/28/21 20:55 21:25 23:00 03:29 Temp 98.0 98.4 98.0 98.4 Resp 18 18 20 18 B/P (MAP) 108/54 (72) 98/54 (69) Pulse Ox 99 99 98 96 O2 Delivery Room Air Room Air Room Air Room Air 06/28/21 06/28/21 06/28/21 03:43 04:13 07:00 Temp 99.1 99.1 Pulse 109 Resp B/P (MAP) 131/66 (87) Pulse Ox 96 96 97 O2 Delivery Room Air Room Air Room Air Intake and Output 06/27/21 06/27/21 06/28/21 15:00 23:00 07:00 Intake Total 1340 ml 760 ml 360 ml Balance 1340 ml 760 ml 360 ml Justicifation of Admission Dx: Justifications for Admission: Justification of Admission Dx: N/A FELICIANO GEORGES MD Jun 28, 2021 10:39
--- NOTE | 2021-06-28 10:47 | NUR ---
SW following. Discussed with RN, pt from home with family, room air, ada diet, COVID-19 negative. Pt getting blood today. RN advised no SW needs at this time. SW will continue to follow.
--- NOTE | 2021-06-28 11:15 | PDOC ---
SAUMYA ALVAREZ LISANDRO 06/28/21 1115: CARDIO Progress Notes Date and Time Date of Service 06/28/21 Time of Evaluation 1113 Subjective Subjective: No Chest Pain, No shortness of breath, No Palpitations, Other (had episode of dizziness this morning early sitting up in bed ) Vitals Vitals Vital Signs Date Time Temp Pulse Resp B/P (MAP) Pulse Ox O2 Delivery O2 Flow Rate FiO2 06/28/21 07:00 99.1 109 18 131/66 (87) 97 Room Air 99.1 Weight Weight [ ] Input and Output Intake and Output Intake and Output 06/28/21 07:00 Intake Total 2460 ml Balance 2460 ml Intake Oral 1460 ml IV Total 1000 ml # Voids 4 Laboratory Labs Laboratory Tests Test 06/27/21 12:41 06/27/21 13:20 06/27/21 16:05 06/27/21 16:32 Glucose (Fingerstick) 408 mg/dL (70-99) 264 mg/dL (70-99) Troponin I Quantitative 0.040 ng/mL (0.000-0.055) 0.032 ng/mL (0.000-0.055) Test 06/27/21 21:07 06/28/21 06:35 06/28/21 08:25 06/28/21 11:08 Glucose (Fingerstick) 304 mg/dL (70-99) 198 mg/dL (70-99) 221 mg/dL (70-99) White Blood Count 7.6 x10^3/uL (4.0-11.0) Red Blood Count 2.26 x10^6/uL (3.50-5.40) Hemoglobin 6.2 g/dL (12.0-15.5) Hematocrit 18.6 % (36.0-47.0) Mean Corpuscular Volume 82 fL (79-100) Mean Corpuscular Hemoglobin 28 pg (25-35) Mean Corpuscular Hemoglobin Concent 34 g/dL (31-37) Red Cell Distribution Width 15.2 % (11.5-14.5) Platelet Count 103 x10^3/uL (140-400) Neutrophils (%) (Auto) 69 % (31-73) Lymphocytes (%) (Auto) 23 % (24-48) Monocytes (%) (Auto) 6 % (0-9) Eosinophils (%) (Auto) 3 % (0-3) Basophils (%) (Auto) 0 % (0-3) Neutrophils # (Auto) 5.2 x10^3/uL (1.8-7.7) Lymphocytes # (Auto) 1.7 x10^3/uL (1.0-4.8) Monocytes # (Auto) 0.4 x10^3/uL (0.0-1.1) Eosinophils # (Auto) 0.2 x10^3/uL (0.0-0.7) Basophils # (Auto) 0.0 x10^3/uL (0.0-0.2) Sodium Level 138 mmol/L (136-145) Potassium Level 4.4 mmol/L (3.5-5.1) Chloride Level 106 mmol/L (98-107) Carbon Dioxide Level 27 mmol/L (21-32) Anion Gap 5 (6-14) Blood Urea Nitrogen 34 mg/dL (7-20) Creatinine 0.8 mg/dL (0.6-1.0) Estimated GFR (Cockcroft-Gault) 71.8 BUN/Creatinine Ratio 43 (6-20) Glucose Level 215 mg/dL (70-99) Calcium Level 7.9 mg/dL (8.5-10.1) Magnesium Level 1.4 mg/dL (1.8-2.4) Iron Level 18 ug/dL (50-170) Total Iron Binding Capacity 254 ug/dL (250-450) Iron Saturation 7 % (15-34) Total Bilirubin 0.2 mg/dL (0.2-1.0) Aspartate Amino Transf (AST/SGOT) 17 U/L (15-37) Alanine Aminotransferase (ALT/SGPT) 26 U/L (14-59) Alkaline Phosphatase 53 U/L (46-116) Total Protein 5.0 g/dL (6.4-8.2) Albumin 2.1 g/dL (3.4-5.0) Albumin/Globulin Ratio 0.7 (1.0-1.7) Physical Exam HEENT: Neck Supple W Full Motion Chest: Symmetric LUNGS: Clear to Auscultation Heart: RRR Abdomen: Soft N/T Extremities: No Edema Neurology: alert, oriented, follow commands Assessment Assessment 1. Syncope: Likely vasovagal. Echo pending. No arrhythmias on tele. Blood pressure remains low end. s/p IVFs 2. Hyperlipidemia; statin 3. Diabetes, II 4. Anemia; hgb 6.2. no obvious bleeding 5. Hypomagnesemia 6. H/o CVA Recommendations Replace Mg Transfuse as warranted Monitor BP trends Await echo Supportive care Justicifation of Admission Dx: Justifications for Admission: Justification of Admission Dx: N/A GUSTAVO POWELL MD 06/28/21 1802: CARDIO Progress Notes Plan Plan Patient seen and examined I agree with our nurse practitioners assessment and plan. Syncope: Likely vasovagal. Echo pending. No arrhythmias on tele. Blood pressure remains low end. s/p IVFs. Replacing magnesium Hyperlipidemia; statin Diabetes, II Anemia; hgb 6.2. no obvious bleeding. Transfusion as per the primary service. Hypomagnesemia H/o CVA SAUMYA ALVAREZ APRN Jun 28, 2021 11:15 GUSTAVO POWELL MD Jun 28, 2021 18:02
[2021-06-28] MEDS: INSULIN LISPRO 300 UNITS/3 ML VIAL. SQ SCH ×2 (12:37→18:11)
[2021-06-28] MEDS ORDERED: MAGNESIUM SULFATE 2GM 50 ML IV ONE (12:45)
--- NOTE | 2021-06-28 13:11 | PDOC2 ---
GI CONSULT Date of Service: DATE: 06/28/21 TIME: 12:57 Reason For Consult: anemia, ?GI bleed HPI: HPI: 66 y/o female admitted after syncope at home. Noted w/ anemia - Hgb 9.3 and drifted to 6.2 without obvious GI bleeding. Iron deficiency confirmed. Transfusion ordered. She reports admission to [facility] in 10/2020 - had terrible abdominal pain and underwent surgery for "an ulcer that blew a hole in my stomach." No GI follow- up since. Has done well since then - good appetite, no abdominal pain - does think she has lost some weight (which she is happy about). Was on pantoprazole - recently stopped for about 7 days while taking antibiotic for UTI. Denies reflux/heartburn, dysphagia, n/v, diarrhea, constipation, hematochezia, or melena. Colonoscopy by Dr. Brown in 03/2011 showed possible polyps in cecum and sigmoid colon (not polyp on path) and internal hemorrhoids. Diverticulosis noted on past imaging. S/p cholecystectomy - thinks had stones. No liver or pancreas history. No longer takes NSAIDs. Unaware of history of anemia except maybe had a blood transfusion 30 years ago after back surgery. Takes B12 at home and a multi-vitamin, also ASA on summary list (stopped here). PMH: PMH: HTN, HLD, DM, aortic stenosis, arthritis tubal ligation, hysterectomy, back surgery, cholecystectomy, repair of perforated ulcer, elbow surgery, skin cancer removal, carpal tunnel release FH: Family History: No pertinent hx (no GI cancers) Social History: ALCOHOL: none Drugs: None ROS: GEN: Denies fevers, chills, sweats HEENT: Denies blurred vision, sore throat CV: Denies chest pain RESP: Denies shortness of air, cough GI: Per HPI : Denies hematuria, dysuria ENDO: +weight loss NEURO: Denies confusion, dizziness MSK: +weakness SKIN: Denies jaundice, pruritus Vitals: Vitals: Vital Signs Date Time Temp Pulse Resp B/P (MAP) Pulse Ox O2 Delivery O2 Flow Rate FiO2 06/28/21 12:26 19 97 Room Air 06/28/21 07:00 99.1 109 131/66 (87) 99.1 Labs: Labs: Laboratory Tests Test 06/27/21 13:20 06/27/21 16:05 06/27/21 16:32 06/27/21 21:07 Troponin I Quantitative 0.040 ng/mL (0.000-0.055) 0.032 ng/mL (0.000-0.055) Glucose (Fingerstick) 264 mg/dL (70-99) 304 mg/dL (70-99) Test 06/28/21 06:35 06/28/21 08:25 06/28/21 11:08 White Blood Count 7.6 x10^3/uL (4.0-11.0) Red Blood Count 2.26 x10^6/uL (3.50-5.40) Hemoglobin 6.2 g/dL (12.0-15.5) Hematocrit 18.6 % (36.0-47.0) Mean Corpuscular Volume 82 fL (79-100) Mean Corpuscular Hemoglobin 28 pg (25-35) Mean Corpuscular Hemoglobin Concent 34 g/dL (31-37) Red Cell Distribution Width 15.2 % (11.5-14.5) Platelet Count 103 x10^3/uL (140-400) Neutrophils (%) (Auto) 69 % (31-73) Lymphocytes (%) (Auto) 23 % (24-48) Monocytes (%) (Auto) 6 % (0-9) Eosinophils (%) (Auto) 3 % (0-3) Basophils (%) (Auto) 0 % (0-3) Neutrophils # (Auto) 5.2 x10^3/uL (1.8-7.7) Lymphocytes # (Auto) 1.7 x10^3/uL (1.0-4.8) Monocytes # (Auto) 0.4 x10^3/uL (0.0-1.1) Eosinophils # (Auto) 0.2 x10^3/uL (0.0-0.7) Basophils # (Auto) 0.0 x10^3/uL (0.0-0.2) Sodium Level 138 mmol/L (136-145) Potassium Level 4.4 mmol/L (3.5-5.1) Chloride Level 106 mmol/L (98-107) Carbon Dioxide Level 27 mmol/L (21-32) Anion Gap 5 (6-14) Blood Urea Nitrogen 34 mg/dL (7-20) Creatinine 0.8 mg/dL (0.6-1.0) Estimated GFR (Cockcroft-Gault) 71.8 BUN/Creatinine Ratio 43 (6-20) Glucose Level 215 mg/dL (70-99) Calcium Level 7.9 mg/dL (8.5-10.1) Magnesium Level 1.4 mg/dL (1.8-2.4) Iron Level 18 ug/dL (50-170) Total Iron Binding Capacity 254 ug/dL (250-450) Iron Saturation 7 % (15-34) Total Bilirubin 0.2 mg/dL (0.2-1.0) Aspartate Amino Transf (AST/SGOT) 17 U/L (15-37) Alanine Aminotransferase (ALT/SGPT) 26 U/L (14-59) Alkaline Phosphatase 53 U/L (46-116) Total Protein 5.0 g/dL (6.4-8.2) Albumin 2.1 g/dL (3.4-5.0) Albumin/Globulin Ratio 0.7 (1.0-1.7) Glucose (Fingerstick) 198 mg/dL (70-99) 221 mg/dL (70-99) Allergies: Coded Allergies: morphine (Unverified Adverse Reaction, Intermediate, hallucinations, 06/28/21) Medications: Current Medications Medications (Trade) Dose Ordered Sig/Royer Route PRN Reason Start Time Stop Time Status Last Admin Dose Admin Atorvastatin Calcium (Lipitor) 40 mg QHS PO 06/27/21 21:00 06/27/21 20:55 Insulin Glargine (Lantus Syringe) 15 unit HS SQ 06/27/21 21:00 06/28/21 08:45 DC 06/27/21 21:10 Insulin Human Lispro (HumaLOG) 0-20 UNITS TIDBFRMEAL SQ 06/28/21 11:30 06/28/21 12:37 Imaging: Imaging: CXR IMPRESSION: No evidence of acute cardiopulmonary abnormality or significant interval change. Head CT IMPRESSION: No evidence of acute intracranial abnormality. Carotid Doppler Study IMPRESSION: No evidence of significant stenosis. PE: GEN: NAD, eating lunch, sitting on edge of bed HEENT: Atraumatic, PERRL LUNGS: CTAB HEART: RRR +murm ABD: NABS, S/ND/NT EXTREMITY: No edema SKIN: No rashes, no jaundice NEURO/PSYCH: A & O 3 A/P: A/P: Syncope CASIMIRO H/o PUD - sounds like repair of perforated ulcer @ [facility] 10/2020 - off PPI x 1 week recently CRC scree - last in 2010 Diverticulosis S/p cholecystectomy -- No obvious bleeding. BUN elevated. Ulcer history as above. Agree w/ PPI and transfusion. She's eating regular food today. Will attempt to review records from [facility] and return later w/ Dr. Swann. ?need inpatient EGD? Also needs screening colonoscopy as outpt. DULCE JUDGE Jun 28, 2021 13:11
--- NOTE | 2021-06-28 15:53 | CARD ---
MR#: [id number] Date of Study: 06/28/2021 Ordering Physician: SUE HSU, Referring Physician: SUE HSU, Tech: Dulce Maria Smallwood [facility] APPROVED REPORT EXAM: Two-dimensional and M-mode echocardiogram with Doppler and color Doppler. Other Information Quality : AverageHR: 97bpm Rhythm : NSR INDICATION Syncope RISK FACTORS Obesity Hyperlipidemia Diabetes 2D DIMENSIONS RVDd3.6 (2.9-3.5cm)Left Atrium(2D)4.1 (1.6-4.0cm) IVSd2.6 (0.7-1.1cm)Aortic Root(2D)3.5 (2.0-3.7cm) LVDd3.0 (3.9-5.9cm)LVOT Diameter2.3 (1.8-2.4cm) PWd2.1 (0.7-1.1cm)LVDs1.7 (2.5-4.0cm) FS (%) 42.0 %SV25.2 ml Aortic Valve AoV Peak Ismael.422.4cm/sAoV VTI75.7cm AO Peak GR.71.4mmHgLVOT Peak Ismael.339.7cm/s AO Mean GR.34mmHgAVA (VMAX)3.47cm2 AI P 1/2 [id number] Mitral Valve MV E Irhipkrf497.9cm/s Pulmonary Valve PV Peak Zeqvbufr283.4cm/s Tricuspid Valve TR P. [id number]/sTR Peak Gr.27mmHg LEFT VENTRICLE The left ventricle is normal size. There is moderate concentric left ventricular hypertrophy. The lef t ventricular systolic function is normal. LV ejection fraction of 60 to 65%. There is normal LV segm ental wall motion. Transmitral Doppler flow pattern is Grade II-pseudonormal filling dynamics. RIGHT VENTRICLE The right ventricle is normal size. The right ventricle is mildly hypertrophied. The right ventricula r systolic function is normal. ATRIA The left atrium size is normal. The right atrium size is normal. The interatrial septum is intact wit h no evidence for an atrial septal defect or patent foramen ovale as noted on 2-D or Doppler imaging. AORTIC VALVE The aortic valve is thickened and displays decreased opening. Doppler and Color Flow revealed moderat e aortic regurgitation. There is mild valvular aortic stenosis. MITRAL VALVE The mitral valve is moderately thickened but opens well. There is no evidence of mitral valve prolaps e. There is no mitral valve stenosis. Doppler and Color Flow revealed trace mitral valve regurgitatio n. TRICUSPID VALVE The tricuspid valve is normal in structure and function. Doppler and Color Flow revealed trace tricus pid regurgitation. Estimated PAP 30 mmHg. There is no tricuspid valve stenosis. PULMONIC VALVE The pulmonary valve is normal in structure and function. Doppler and Color Flow revealed no pulmonic valvular regurgitation. GREAT VESSELS The aortic root is normal in size. The ascending aorta is normal in size. The IVC is normal in size a nd collapses >50% with inspiration. PERICARDIAL EFFUSION There is no evidence of significant pericardial effusion. Critical Notification Critical Value: No <Conclusion> The left ventricle is normal size. The left ventricular systolic function is normal. LV ejection fraction of 60 to 65%. There is moderate concentric left ventricular hypertrophy. Doppler and Color Flow revealed moderate aortic regurgitation. There is mild valvular aortic stenosis. Doppler and Color Flow revealed trace mitral valve regurgitation. Doppler and Color Flow revealed trace tricuspid regurgitation. Estimated PAP 30 mmHg. Signed by : Sp Lau MD Electronically Approved : 06/28/2021 15:52:39
[2021-06-28] MEDS: FERROUS SULFATE 325 MG TABLET. PO SCH (18:07)
[2021-06-28] MEDS: ATORVASTATIN CALCIUM 40 MG TABLET. PO SCH (21:35)
[2021-06-28] MEDS: MECLIZINE HCL 12.5 MG TABLET. PO PRN (21:36)
[2021-06-28] MEDS: DICYCLOMINE HCL 10 MG CAPSULE PO PRN (21:36)
[2021-06-28] MEDS: INSULIN GLARGINE SYRINGE. SQ SCH (21:50)
[2021-06-29] MEDS: HYDROcodone/APAP 5/325MG 1 TAB TABLET PO PRN ×2 (03:20→20:00)
[2021-06-29 03:46] VITALS: BP 131/69
[2021-06-29 07:00] VITALS: BP 128/107
[2021-06-29] MEDS: INSULIN LISPRO 300 UNITS/3 ML VIAL. SQ SCH ×3 (07:30→17:28)
[2021-06-29 07:32] LABS: BASO % 1 % (0-3); EOS # 0.3 x10^3/uL (0.0-0.7); EOS % 4 % (0-3); HEMOGLOBIN 8.6 g/dL (12.0-15.5); LYMPH # 1.8 x10^3/uL (1.0-4.8); LYMPH % 29 % (24-48); MEAN CORPUSCULAR HEMOGLOBIN 29 pg (25-35); MEAN CORPUSCULAR HGB CONC 35 g/dL (31-37); MEAN CORPUSCULAR VOLUME 84 fL (79-100); MONO # 0.4 x10^3/uL (0.0-1.1); MONO % 6 % (0-9); NEUT # 3.9 x10^3/uL (1.8-7.7); NEUT % 61 % (31-73); PLATELET COUNT 110 x10^3/uL (140-400); RED BLOOD COUNT 2.98 x10^6/uL (3.50-5.40); RED CELL DISTRIBUTION WIDTH 15.3 % (11.5-14.5); WHITE BLOOD COUNT 6.5 x10^3/uL (4.0-11.0)
[2021-06-29] MEDS: IV NORMAL SALINE 1000ML BAG 1,000 ML IV SCH ×2 (07:40→20:00)
[2021-06-29 08:01] LABS: PROTHROMBIN TIME PATIENT 14.4 SEC (11.7-14.0)
[2021-06-29 08:13] LABS: CALCIUM 7.7 mg/dL (8.5-10.1); CREATININE 0.6 mg/dL (0.6-1.0)
[2021-06-29] MEDS: PANTOPRAZOLE 40 MG TABLET.DR. PO SCH (08:45)
[2021-06-29] MEDS: FERROUS SULFATE 325 MG TABLET. PO SCH ×2 (08:46→17:24)
[2021-06-29] MEDS: metFORMIN 500 MG TABLET PO SCH ×2 (08:46→17:25)
--- NOTE | 2021-06-29 09:09 | PDOC ---
PROGRESS NOTES Date of Service: DATE: 06/29/21 TIME: 09:07 Subjective Subjective still dizzy Objective Objective Vital Signs Date Time Temp Pulse Resp B/P (MAP) Pulse Ox O2 Delivery O2 Flow Rate FiO2 06/29/21 07:00 98.2 90 18 128/107 (114) 90 Room Air 98.2 Intake and Output 06/29/21 07:00 Intake Total 1032 ml Balance 1032 ml Intake Oral 600 ml Blood Product IV Normal Saline Flush 432 ml # Voids 7 Physical Exam Abdomen: Soft Heart: Regular rate, Normal S1, Normal S2 Extremities: No clubbing General: Alert HEENT: Atraumatic Lungs: Clear to auscultation MUSCULOSKELETAL: No swelling, Osteoarthritic changes both hands Neck: Supple Neuro: Normal speech Psych/Mental Status: Mental status NL Skin: No breakdown Diagnosis Problem List Problems Medical Problems: (1) Hyperglycemia Status: Acute (2) Occipital scalp laceration Status: Acute (3) Syncope Status: Acute Assessment Assessment 1. Syncope, due to anemia hb 6.8. 2. History of moderate aortic stenosis. 3. Dehydration. 4. Diabetes mellitus type 2, not controlled. 5. Hypertension. The patient does not have any orthostatic hypotension. 6. Osteoarthritis. PLAN: transfused 2 u prbc , hb 8,[address] head -ve echo today ?home tomorrow. Dehydration. Improving. BUN is 55- to 34., creatinine 1. The patient states that she has not been taking any Lasix for quite some time. It is on her medication list; so I have discontinued it. Encouraged to increase fluids. Continue IV fluids. Blood sugar is high. Increase Lantus,high dose SSI. Hb A1C. Anemia- acute on chronic blood loss- etiology not clear. Type and crossw and transfuse 2 units PRBCs. Stoo- fecal occult. GI consult. This is not magnus to scalp injury. Dizziness- due to dehydration,anemia. Carotid doppler negative. Consult Dr. Burton for cardiology evaluation and management. He is going to order echocardiogram and may need to place a loop recorder to monitor because of syncope. Consult Dr. Morales for neurology evaluation and management as the patient does not have any other reasons for syncope. I will also go ahead and recheck labs in a.m. Order carotid sonogram. For details, please refer to the orders. Plan Plan of Care Problems Medical Problems: (1) Hyperglycemia Status: Acute (2) Occipital scalp laceration Status: Acute (3) Syncope Status: Acute Comment Review of Relevant I have reviewed the following items kota (where applicable) has been applied. Labs Laboratory Tests Test 06/28/21 11:08 06/28/21 16:32 06/28/21 19:27 06/29/21 06:35 Glucose (Fingerstick) 221 mg/dL (70-99) 192 mg/dL (70-99) 207 mg/dL (70-99) White Blood Count 6.5 x10^3/uL (4.0-11.0) Red Blood Count 2.98 x10^6/uL (3.50-5.40) Hemoglobin 8.6 g/dL (12.0-15.5) Hematocrit 25.0 % (36.0-47.0) Mean Corpuscular Volume 84 fL (79-100) Mean Corpuscular Hemoglobin 29 pg (25-35) Mean Corpuscular Hemoglobin Concent 35 g/dL (31-37) Red Cell Distribution Width 15.3 % (11.5-14.5) Platelet Count 110 x10^3/uL (140-400) Neutrophils (%) (Auto) 61 % (31-73) Lymphocytes (%) (Auto) 29 % (24-48) Monocytes (%) (Auto) 6 % (0-9) Eosinophils (%) (Auto) 4 % (0-3) Basophils (%) (Auto) 1 % (0-3) Neutrophils # (Auto) 3.9 x10^3/uL (1.8-7.7) Lymphocytes # (Auto) 1.8 x10^3/uL (1.0-4.8) Monocytes # (Auto) 0.4 x10^3/uL (0.0-1.1) Eosinophils # (Auto) 0.3 x10^3/uL (0.0-0.7) Basophils # (Auto) 0.0 x10^3/uL (0.0-0.2) Prothrombin Time 14.4 SEC (11.7-14.0) Prothromb Time International Ratio 1.1 (0.8-1.1) Sodium Level 139 mmol/L (136-145) Potassium Level 4.0 mmol/L (3.5-5.1) Chloride Level 106 mmol/L (98-107) Carbon Dioxide Level 27 mmol/L (21-32) Anion Gap 6 (6-14) Blood Urea Nitrogen 17 mg/dL (7-20) Creatinine 0.6 mg/dL (0.6-1.0) Estimated GFR (Cockcroft-Gault) 100.0 Glucose Level 137 mg/dL (70-99) Calcium Level 7.7 mg/dL (8.5-10.1) Test 06/29/21 07:55 Glucose (Fingerstick) 121 mg/dL (70-99) Medications Current Medications Ferrous Sulfate (Feosol) 325 mg BIDWMEALS PO Last administered on 06/29/21at 08:46; Start 06/28/21 at 17:00 Insulin Glargine (Lantus Syringe) 20 unit HS SQ Last administered on 06/28/21at 21:50; Start 06/28/21 at 21:00 Insulin Human Lispro (HumaLOG) 0-20 UNITS TIDBFRMEAL SQ Last administered on 06/28/21at 18:11; Start 06/28/21 at 11:30 Magnesium Sulfate 50 ml @ 25 mls/hr 1X ONCE IV Last administered on 06/28/21at 13:47; Start 06/28/21 at 12:45; Stop 06/28/21 at 14:44; Status DC Vitals/I & O Vital Sign - Last 24 Hours 06/28/21 06/28/21 06/28/21 06/28/21 11:00 12:26 13:00 15:00 Temp 98.1 98.3 98.1 98.3 Pulse 84 83 Resp 18 19 19 18 B/P (MAP) 113/62 (79) 134/67 (89) Pulse Ox 96 97 97 97 O2 Delivery Room Air Room Air Room Air Room Air 06/28/21 06/28/21 06/28/21 06/28/21 17:25 17:40 18:40 19:00 Temp 98.2 98.0 98.0 97.7 98.2 98.0 98.0 97.7 Pulse 90 18 89 94 Resp 17 18 18 18 B/P (MAP) 103/60 98/64 98/52 119/52 (74) Pulse Ox 95 O2 Delivery Room Air 1006/28/21 06/28/21 06/28/21 20:00 21:28 21:36 21:43 Temp 97.7 97.9 97.7 97.9 Pulse 91 89 Resp 16 18 18 B/P (MAP) 122/58 126/59 Pulse Ox 95 O2 Delivery Room Air Room Air 06/28/21 06/28/21 06/28/21 06/28/21 22:06 22:43 23:00 23:22 Temp 98.0 98.6 98.0 98.0 98.6 98.0 Pulse 88 101 88 Resp 18 18 18 16 B/P (MAP) 120/62 124/64 (84) 114/62 118/64 (82) 96/51 (66) Pulse Ox 95 97 O2 Delivery Room Air Room Air 06/29/21 06/29/21 06/29/21 06/29/21 03:20 03:46 03:50 07:00 Temp 98.6 98.2 98.6 98.2 Pulse 80 90 Resp 18 18 18 18 B/P (MAP) 131/69 (89) 128/107 (114) Pulse Ox 97 98 98 90 O2 Delivery Room Air Room Air Room Air Room Air Intake and Output 06/28/21 06/28/21 06/29/21 15:00 23:00 07:00 Intake Total 622 ml 410 ml Balance 622 ml 410 ml Justifications for Admission Other Justification EULOGIO BAKER MD Jun 29, 2021 09:09
[2021-06-29 11:00] VITALS: BP 123/54
--- NOTE | 2021-06-29 11:20 | PDOC ---
PROGRESS NOTES Date of Service DATE: 06/29/21 TIME: 11:18 Assessment Problems Medical Problems: (1) Hyperglycemia Status: Acute (2) Occipital scalp laceration Status: Acute (3) Syncope Status: Acute Orthostatic hypotension as recorded on vital signs 06/28, blood pressure fell 28 points, a manifestation most likely of diabetic neuropathy She does have peripheral neuropathy from diabetes as well Essential tremor, none on exam now, no evidence of Parkinson's or multiple system atrophy Plan Regulate blood pressure Physical therapy No treatment for essential tremor required at this point Subjective Feels a little better. Objective Vital Signs Date Time Temp Pulse Resp B/P (MAP) Pulse Ox O2 Delivery O2 Flow Rate FiO2 06/29/21 07:00 98.2 90 18 128/107 (114) 90 Room Air 98.2 Intake and Output 06/29/21 07:00 Intake Total 1032 ml Balance 1032 ml Intake Oral 600 ml Blood Product IV Normal Saline Flush 432 ml # Voids 7 PHYSICAL EXAM Alert. Oriented to time, place and person. PERRL. EOMI. CN: no focal findings. Muscle tone: normal. Muscle strength: 5/5 DTR: 1+ Plantar reflex: Flexor Gait: not examined in bed. Sensory exam: Stocking loss. No cerebellar signs elicited. Review of Relevant I have reviewed the following items kota (where applicable) has been applied. Labs Laboratory Tests Test 06/27/21 12:41 06/27/21 13:20 06/27/21 16:05 06/27/21 16:32 Glucose (Fingerstick) 408 mg/dL (70-99) 264 mg/dL (70-99) Troponin I Quantitative 0.040 ng/mL (0.000-0.055) 0.032 ng/mL (0.000-0.055) Test 06/27/21 21:07 06/28/21 06:35 06/28/21 08:25 06/28/21 11:08 Glucose (Fingerstick) 304 mg/dL (70-99) 198 mg/dL (70-99) 221 mg/dL (70-99) White Blood Count 7.6 x10^3/uL (4.0-11.0) Red Blood Count 2.26 x10^6/uL (3.50-5.40) Hemoglobin 6.2 g/dL (12.0-15.5) Hematocrit 18.6 % (36.0-47.0) Mean Corpuscular Volume 82 fL (79-100) Mean Corpuscular Hemoglobin 28 pg (25-35) Mean Corpuscular Hemoglobin Concent 34 g/dL (31-37) Red Cell Distribution Width 15.2 % (11.5-14.5) Platelet Count 103 x10^3/uL (140-400) Neutrophils (%) (Auto) 69 % (31-73) Lymphocytes (%) (Auto) 23 % (24-48) Monocytes (%) (Auto) 6 % (0-9) Eosinophils (%) (Auto) 3 % (0-3) Basophils (%) (Auto) 0 % (0-3) Neutrophils # (Auto) 5.2 x10^3/uL (1.8-7.7) Lymphocytes # (Auto) 1.7 x10^3/uL (1.0-4.8) Monocytes # (Auto) 0.4 x10^3/uL (0.0-1.1) Eosinophils # (Auto) 0.2 x10^3/uL (0.0-0.7) Basophils # (Auto) 0.0 x10^3/uL (0.0-0.2) Sodium Level 138 mmol/L (136-145) Potassium Level 4.4 mmol/L (3.5-5.1) Chloride Level 106 mmol/L (98-107) Carbon Dioxide Level 27 mmol/L (21-32) Anion Gap 5 (6-14) Blood Urea Nitrogen 34 mg/dL (7-20) Creatinine 0.8 mg/dL (0.6-1.0) Estimated GFR (Cockcroft-Gault) 71.8 BUN/Creatinine Ratio 43 (6-20) Glucose Level 215 mg/dL (70-99) Calcium Level 7.9 mg/dL (8.5-10.1) Magnesium Level 1.4 mg/dL (1.8-2.4) Iron Level 18 ug/dL (50-170) Total Iron Binding Capacity 254 ug/dL (250-450) Iron Saturation 7 % (15-34) Total Bilirubin 0.2 mg/dL (0.2-1.0) Aspartate Amino Transf (AST/SGOT) 17 U/L (15-37) Alanine Aminotransferase (ALT/SGPT) 26 U/L (14-59) Alkaline Phosphatase 53 U/L (46-116) Total Protein 5.0 g/dL (6.4-8.2) Albumin 2.1 g/dL (3.4-5.0) Albumin/Globulin Ratio 0.7 (1.0-1.7) Test 06/28/21 16:32 06/28/21 19:27 06/29/21 06:35 06/29/21 07:55 Glucose (Fingerstick) 192 mg/dL (70-99) 207 mg/dL (70-99) 121 mg/dL (70-99) White Blood Count 6.5 x10^3/uL (4.0-11.0) Red Blood Count 2.98 x10^6/uL (3.50-5.40) Hemoglobin 8.6 g/dL (12.0-15.5) Hematocrit 25.0 % (36.0-47.0) Mean Corpuscular Volume 84 fL (79-100) Mean Corpuscular Hemoglobin 29 pg (25-35) Mean Corpuscular Hemoglobin Concent 35 g/dL (31-37) Red Cell Distribution Width 15.3 % (11.5-14.5) Platelet Count 110 x10^3/uL (140-400) Neutrophils (%) (Auto) 61 % (31-73) Lymphocytes (%) (Auto) 29 % (24-48) Monocytes (%) (Auto) 6 % (0-9) Eosinophils (%) (Auto) 4 % (0-3) Basophils (%) (Auto) 1 % (0-3) Neutrophils # (Auto) 3.9 x10^3/uL (1.8-7.7) Lymphocytes # (Auto) 1.8 x10^3/uL (1.0-4.8) Monocytes # (Auto) 0.4 x10^3/uL (0.0-1.1) Eosinophils # (Auto) 0.3 x10^3/uL (0.0-0.7) Basophils # (Auto) 0.0 x10^3/uL (0.0-0.2) Prothrombin Time 14.4 SEC (11.7-14.0) Prothromb Time International Ratio 1.1 (0.8-1.1) Sodium Level 139 mmol/L (136-145) Potassium Level 4.0 mmol/L (3.5-5.1) Chloride Level 106 mmol/L (98-107) Carbon Dioxide Level 27 mmol/L (21-32) Anion Gap 6 (6-14) Blood Urea Nitrogen 17 mg/dL (7-20) Creatinine 0.6 mg/dL (0.6-1.0) Estimated GFR (Cockcroft-Gault) 100.0 Glucose Level 137 mg/dL (70-99) Calcium Level 7.7 mg/dL (8.5-10.1) Ferritin 27 ng/mL (8-252) Vitamin B12 Level > 2000 pg/mL (247-911) Thyroid Stimulating Hormone (TSH) 1.658 uIU/mL (0.358-3.74) Laboratory Tests Test 06/28/21 16:32 06/28/21 19:27 06/29/21 06:35 06/29/21 07:55 Glucose (Fingerstick) 192 mg/dL (70-99) 207 mg/dL (70-99) 121 mg/dL (70-99) White Blood Count 6.5 x10^3/uL (4.0-11.0) Red Blood Count 2.98 x10^6/uL (3.50-5.40) Hemoglobin 8.6 g/dL (12.0-15.5) Hematocrit 25.0 % (36.0-47.0) Mean Corpuscular Volume 84 fL (79-100) Mean Corpuscular Hemoglobin 29 pg (25-35) Mean Corpuscular Hemoglobin Concent 35 g/dL (31-37) Red Cell Distribution Width 15.3 % (11.5-14.5) Platelet Count 110 x10^3/uL (140-400) Neutrophils (%) (Auto) 61 % (31-73) Lymphocytes (%) (Auto) 29 % (24-48) Monocytes (%) (Auto) 6 % (0-9) Eosinophils (%) (Auto) 4 % (0-3) Basophils (%) (Auto) 1 % (0-3) Neutrophils # (Auto) 3.9 x10^3/uL (1.8-7.7) Lymphocytes # (Auto) 1.8 x10^3/uL (1.0-4.8) Monocytes # (Auto) 0.4 x10^3/uL (0.0-1.1) Eosinophils # (Auto) 0.3 x10^3/uL (0.0-0.7) Basophils # (Auto) 0.0 x10^3/uL (0.0-0.2) Prothrombin Time 14.4 SEC (11.7-14.0) Prothromb Time International Ratio 1.1 (0.8-1.1) Sodium Level 139 mmol/L (136-145) Potassium Level 4.0 mmol/L (3.5-5.1) Chloride Level 106 mmol/L (98-107) Carbon Dioxide Level 27 mmol/L (21-32) Anion Gap 6 (6-14) Blood Urea Nitrogen 17 mg/dL (7-20) Creatinine 0.6 mg/dL (0.6-1.0) Estimated GFR (Cockcroft-Gault) 100.0 Glucose Level 137 mg/dL (70-99) Calcium Level 7.7 mg/dL (8.5-10.1) Ferritin 27 ng/mL (8-252) Vitamin B12 Level > 2000 pg/mL (247-911) Thyroid Stimulating Hormone (TSH) 1.658 uIU/mL (0.358-3.74) Medications Current Medications Sodium Chloride 1,000 ml @ 1,000 mls/hr 1X ONCE IV Last administered on 06/27/21at 05:31; Start 06/27/21 at 04:45; Stop 06/27/21 at 05:44; Status DC Ondansetron HCl (Zofran) 4 mg 1X ONCE IVP Last administered on 06/27/21at 05:31; Start 06/27/21 at 05:00; Stop 06/27/21 at 05:01; Status DC Acetaminophen (Tylenol) 500 mg 1X ONCE PO Last administered on 06/27/21at 07:55; Start 06/27/21 at 06:45; Stop 06/27/21 at 06:47; Status DC Insulin Human Regular (HumuLIN R VIAL) 10 unit 1X ONCE SQ ; Start 06/27/21 at 08:30; Stop 06/27/21 at 08:53; Status DC Ondansetron HCl (Zofran) 4 mg PRN Q8HRS PRN IVP NAUSEA/VOMITING; Start 06/27/21 at 08:30; Stop 06/28/21 at 08:29; Status DC Acetaminophen (Tylenol) 650 mg PRN Q4HRS PRN PO FEVER > 100.3'F; Start 06/27/21 at 08:30; Stop 06/28/21 at 08:29; Status DC Insulin Human Lispro (HumaLOG) 0-5 UNITS TIDWMEALS SQ Last administered on 06/27/21at 18:02; Start 06/27/21 at 12:00; Stop 06/28/21 at 08:47; Status DC Dextrose (Dextrose 50%-Water Syringe) 12.5 gm PRN Q15MIN PRN IV SEE COMMENTS; Start 06/27/21 at 08:45 Aspirin (Ecotrin) 325 mg 1X ONCE PO Last administered on 06/27/21at 09:44; Start 06/27/21 at 08:45; Stop 06/27/21 at 08:53; Status DC Sodium Chloride 1,000 ml @ 100 mls/hr 1X ONCE IV Last administered on 06/27/21at 09:48; Start 06/27/21 at 08:45; Stop 06/27/21 at 18:44; Status DC Aspirin (Aspirin Chewable) 81 mg DAILY PO ; Start 06/27/21 at 12:00; Stop 06/28/21 at 09:58; Status DC Atorvastatin Calcium (Lipitor) 40 mg QHS PO Last administered on 06/28/21at 21:35; Start 06/27/21 at 21:00 Dicyclomine HCl (Bentyl) 10 mg PRN Q6HRS PRN PO PAIN Last administered on 06/28/21at 21:36; Start 06/27/21 at 10:15 Estrogens Conjugated (Premarin) 0.625 mg DAILY PO ; Start 06/28/21 at 09:00; Status Cancel Acetaminophen/ Hydrocodone Bitart (Lortab 5/325) 1 tab PRN Q6HRS PRN PO SEVERE PAIN 7-10 Last administered on 06/29/21at 03:20; Start 06/27/21 at 10:15 Metformin HCl (Glucophage) 1,000 mg BIDWMEALS PO Last administered on 06/29/21at 08:46; Start 06/27/21 at 12:00 Insulin Glargine (Lantus Syringe) 15 unit HS SQ Last administered on 06/27/21at 21:10; Start 06/27/21 at 21:00; Stop 06/28/21 at 08:45; Status DC Acetaminophen (Tylenol) 650 mg PRN Q6HRS PRN PO MILD PAIN / TEMP > 100.3'F Last administered on 06/27/21at 18:35; Start 06/27/21 at 10:15 Pantoprazole Sodium (Protonix) 40 mg DAILYAC PO Last administered on 06/29/21at 08:45; Start 06/27/21 at 11:30 Sodium Chloride 1,000 ml @ 75 mls/hr [id number] IV Last administered on 06/29/21at 07:40; Start 06/27/21 at 10:15 Heparin Sodium (Porcine) (Heparin Sodium) 5,000 unit Q12HR SQ Last administered on 06/27/21at 20:57; Start 06/27/21 at 11:00; Stop 06/28/21 at 09:58; Status DC Meclizine HCl (Antivert) 25 mg PRN Q6HRS PRN PO DIZZINESS Last administered on 06/28/21at 21:36; Start 06/27/21 at 12:45 Insulin Glargine (Lantus Syringe) 20 unit HS SQ Last administered on 06/28/21at 21:50; Start 06/28/21 at 21:00 Insulin Human Lispro (HumaLOG) 0-20 UNITS TIDBFRMEAL SQ Last administered on 06/28/21at 18:11; Start 06/28/21 at 11:30 Magnesium Sulfate 50 ml @ 25 mls/hr 1X ONCE IV Last administered on 06/28/21at 13:47; Start 06/28/21 at 12:45; Stop 06/28/21 at 14:44; Status DC Insulin Glargine (Lantus Syringe) 15 unit STK-MED ONCE SQ ; Start 06/27/21 at 21:00; Stop 06/28/21 at 13:57; Status DC Ferrous Sulfate (Feosol) 325 mg BIDWMEALS PO Last administered on 06/29/21at 08:46; Start 06/28/21 at 17:00 Active Scripts Active Reported Hair, Skin & Nails (Multivitamin With Minerals) 1 Each Tablet 1 Each PO DAILY Coq-10 (Ubidecarenone) 100 Mg Capsule 100 Mg PO DAILY Levemir (Insulin Detemir) 100 Unit/1 Ml Vial 22 Unit SQ HS Gabapentin 100 Mg Capsule 1 Cap PO DAILY Prozac (Fluoxetine Hcl) 20 Mg Capsule 1 Cap PO [id number] Aspirin 81 Mg Tab.chew 1 Tab PO DAILY Metformin Hcl 500 Mg Tablet 2 Tab PO BID Atorvastatin Calcium 40 Mg Tablet 1 Tab PO DAILY Vitals/I & O Vital Sign - Last 24 Hours 06/28/21 06/28/21 06/28/21 06/28/21 12:26 13:00 15:00 17:25 Temp 98.3 98.2 98.3 98.2 Pulse 83 90 Resp 19 19 18 17 B/P (MAP) 134/67 (89) 103/60 Pulse Ox 97 97 97 O2 Delivery Room Air Room Air Room Air 06/28/21 06/28/21 06/28/21 06/28/21 17:40 18:40 19:00 20:00 Temp 98.0 98.0 97.7 98.0 98.0 97.7 Pulse 18 89 94 Resp 18 18 18 B/P (MAP) 98/64 98/52 119/52 (74) Pulse Ox 95 O2 Delivery Room Air Room Air 06/28/21 06/28/21 06/28/21 06/28/21 21:28 21:36 21:43 22:06 Temp 97.7 97.9 97.7 97.9 Pulse 91 89 Resp 16 18 18 18 B/P (MAP) 122/58 126/59 Pulse Ox 95 95 O2 Delivery Room Air Room Air 06/28/21 06/28/21 06/28/21 06/29/21 22:43 23:00 23:22 03:20 Temp 98.0 98.6 98.0 98.0 98.6 98.0 Pulse 88 101 88 Resp 18 18 16 18 B/P (MAP) 120/62 124/64 (84) 114/62 118/64 (82) 96/51 (66) Pulse Ox 97 97 O2 Delivery Room Air Room Air 06/29/21 06/29/21 06/29/21 03:46 03:50 07:00 Temp 98.6 98.2 98.6 98.2 Pulse 80 90 Resp 18 18 18 B/P (MAP) 131/69 (89) 128/107 (114) Pulse Ox 98 98 90 O2 Delivery Room Air Room Air Room Air Intake and Output 06/28/21 06/28/21 06/29/21 15:00 23:00 07:00 Intake Total 622 ml 410 ml Balance 622 ml 410 ml Images Bilateral carotid duplex with waveform analysis. CLINICAL HISTORY: Reason: Syncope; dizziness-fall / Spl. Instructions: / History: . . TECHNIQUE: Longitudinal and transverse sonographic images of the bilateral carotid arteries was performed utilizing grayscale, color and spectral Doppler techniques. COMPARISON: None FINDINGS: Right Carotid: Minimal plaque is seen. There is no evidence of significant narrowing. Left Carotid: Minimal plaque is seen. There is no evidence of significant narrowing. Vertebrals: Antegrade flow bilaterally. Right: PSV CCA (cm/s): 85 PSV ICA (cm/s): 98 EDV ICA (cm/s): 26 PSV ECA (cm/s): 93 ICA/CCA Ratio: 1.13 Left: PSV CCA (cm/s): 84 PSV ICA (cm/s): 105 EDV ICA (cm/s): 45 PSV ECA (cm/s): 95 ICA/CCA Ratio: 1.25 IMPRESSION: No evidence of significant stenosis. Justicifation of Admission Dx: Justifications for Admission: Justification of Admission Dx: N/A FELICIANO GEORGES MD Jun 29, 2021 11:20
--- NOTE | 2021-06-29 11:52 | PDOC ---
CARDIO Progress Notes Date and Time Date of Service 06/29/21 Time of Evaluation 1150 Subjective Subjective: No Chest Pain, No shortness of breath, No Palpitations, Other (had episode of dizziness this morning early sitting up in bed ) Vitals Vitals Vital Signs Date Time Temp Pulse Resp B/P (MAP) Pulse Ox O2 Delivery O2 Flow Rate FiO2 06/29/21 07:00 98.2 90 18 128/107 (114) 90 Room Air 98.2 Weight Weight [ ] Input and Output Intake and Output Intake and Output 06/29/21 06:59 Intake Total 1032 ml Balance 1032 ml Intake Oral 600 ml Blood Product IV Normal Saline Flush 432 ml # Voids 7 Laboratory Labs Laboratory Tests Test 06/28/21 16:32 06/28/21 19:27 06/29/21 06:35 06/29/21 07:55 Glucose (Fingerstick) 192 mg/dL (70-99) 207 mg/dL (70-99) 121 mg/dL (70-99) White Blood Count 6.5 x10^3/uL (4.0-11.0) Red Blood Count 2.98 x10^6/uL (3.50-5.40) Hemoglobin 8.6 g/dL (12.0-15.5) Hematocrit 25.0 % (36.0-47.0) Mean Corpuscular Volume 84 fL (79-100) Mean Corpuscular Hemoglobin 29 pg (25-35) Mean Corpuscular Hemoglobin Concent 35 g/dL (31-37) Red Cell Distribution Width 15.3 % (11.5-14.5) Platelet Count 110 x10^3/uL (140-400) Neutrophils (%) (Auto) 61 % (31-73) Lymphocytes (%) (Auto) 29 % (24-48) Monocytes (%) (Auto) 6 % (0-9) Eosinophils (%) (Auto) 4 % (0-3) Basophils (%) (Auto) 1 % (0-3) Neutrophils # (Auto) 3.9 x10^3/uL (1.8-7.7) Lymphocytes # (Auto) 1.8 x10^3/uL (1.0-4.8) Monocytes # (Auto) 0.4 x10^3/uL (0.0-1.1) Eosinophils # (Auto) 0.3 x10^3/uL (0.0-0.7) Basophils # (Auto) 0.0 x10^3/uL (0.0-0.2) Prothrombin Time 14.4 SEC (11.7-14.0) Prothromb Time International Ratio 1.1 (0.8-1.1) Sodium Level 139 mmol/L (136-145) Potassium Level 4.0 mmol/L (3.5-5.1) Chloride Level 106 mmol/L (98-107) Carbon Dioxide Level 27 mmol/L (21-32) Anion Gap 6 (6-14) Blood Urea Nitrogen 17 mg/dL (7-20) Creatinine 0.6 mg/dL (0.6-1.0) Estimated GFR (Cockcroft-Gault) 100.0 Glucose Level 137 mg/dL (70-99) Calcium Level 7.7 mg/dL (8.5-10.1) Ferritin 27 ng/mL (8-252) Vitamin B12 Level > 2000 pg/mL (247-911) Thyroid Stimulating Hormone (TSH) 1.658 uIU/mL (0.358-3.74) Physical Exam HEENT: Neck Supple W Full Motion Chest: Symmetric LUNGS: Clear to Auscultation Heart: RRR Abdomen: Soft N/T Extremities: No Edema Neurology: alert, oriented, follow commands Assessment Assessment 1. Syncope: Likely vasovagal. No arrhythmias on tele. Blood pressure remains low end. s/p IVFs. Echo with preserved LV systolic function with moderate LVH and moderate aortic regurgitation. Ortho's + this am 2. Hyperlipidemia; statin 3. Diabetes, II 4. Anemia; no obvious bleeding. s/p transfusion 5. Hypomagnesemia; replaced 6. H/o CVA Recommendations Will start midodrine due to ongoing hypotension Monitor BP trends Supportive care Justicifation of Admission Dx: Justifications for Admission: Justification of Admission Dx: N/A SAUMYA ALVAREZ APRN Jun 29, 2021 11:52
--- NOTE | 2021-06-29 11:52 | PDOC ---
Date of Service: DATE: 06/29/21 TIME: 11:49 Subjective: Subjective: Feels better. No bleeding. Says going home tomorrow. Objective: Vital Signs: Vital Signs Date Time Temp Pulse Resp B/P (MAP) Pulse Ox O2 Delivery O2 Flow Rate FiO2 06/29/21 07:00 98.2 90 18 128/107 (114) 90 Room Air 98.2 Labs: Laboratory Tests Test 06/28/21 16:32 06/28/21 19:27 06/29/21 06:35 06/29/21 07:55 Glucose (Fingerstick) 192 mg/dL 207 mg/dL 121 mg/dL White Blood Count 6.5 x10^3/uL Red Blood Count 2.98 x10^6/uL Hemoglobin 8.6 g/dL Hematocrit 25.0 % Mean Corpuscular Volume 84 fL Mean Corpuscular Hemoglobin 29 pg Mean Corpuscular Hemoglobin Concent 35 g/dL Red Cell Distribution Width 15.3 % Platelet Count 110 x10^3/uL Neutrophils (%) (Auto) 61 % Lymphocytes (%) (Auto) 29 % Monocytes (%) (Auto) 6 % Eosinophils (%) (Auto) 4 % Basophils (%) (Auto) 1 % Neutrophils # (Auto) 3.9 x10^3/uL Lymphocytes # (Auto) 1.8 x10^3/uL Monocytes # (Auto) 0.4 x10^3/uL Eosinophils # (Auto) 0.3 x10^3/uL Basophils # (Auto) 0.0 x10^3/uL Prothrombin Time 14.4 SEC Prothromb Time International Ratio 1.1 Sodium Level 139 mmol/L Potassium Level 4.0 mmol/L Chloride Level 106 mmol/L Carbon Dioxide Level 27 mmol/L Anion Gap 6 Blood Urea Nitrogen 17 mg/dL Creatinine 0.6 mg/dL Estimated GFR (Cockcroft-Gault) 100.0 Glucose Level 137 mg/dL Calcium Level 7.7 mg/dL Ferritin 27 ng/mL Vitamin B12 Level > 2000 pg/mL Thyroid Stimulating Hormone (TSH) 1.658 uIU/mL Imaging: Echo <Conclusion> The left ventricle is normal size. The left ventricular systolic function is normal. LV ejection fraction of 60 to 65%. There is moderate concentric left ventricular hypertrophy. Doppler and Color Flow revealed moderate aortic regurgitation. There is mild valvular aortic stenosis. Doppler and Color Flow revealed trace mitral valve regurgitation. Doppler and Color Flow revealed trace tricuspid regurgitation. Estimated PAP 30 mmHg. PE: GEN: NAD LUNGS: CTAB HEART: RRR +murm ABD: NABS, S/ND/NT NEURO/PSYCH: A & O 3 A/P: CASIMIRO - improved w/ transfusion, no obvious GI bleeding H/o PUD -- Continue PPI and iron. Outpt EGD and colonoscopy. Justicifation of Admission Dx: Justifications for Admission: Justification of Admission Dx: N/A DULCE JUDGE Jun 29, 2021 11:52
[2021-06-29] MEDS: ACETAMINOPHEN 325 MG TABLET. PO PRN (14:05)
[2021-06-29 15:00] VITALS: BP 126/61
[2021-06-29] MEDS: MIDODRINE 2.5 MG TABLET PO SCH (17:25)
[2021-06-29 19:00] VITALS: BP 156/57
[2021-06-29] MEDS: MECLIZINE HCL 12.5 MG TABLET. PO PRN (20:00)
[2021-06-29] MEDS: DICYCLOMINE HCL 10 MG CAPSULE PO PRN (20:00)
[2021-06-29] MEDS: ATORVASTATIN CALCIUM 40 MG TABLET. PO SCH (20:00)
[2021-06-29] MEDS: INSULIN GLARGINE SYRINGE. SQ SCH (21:20)
[2021-06-29 22:39] VITALS: BP_SYST 129; BP_SYST 138; BP_SYST 142; BP_DIAS 63; BP_DIAS 66; BP_DIAS 67
[2021-06-30 02:08] LABS: HEMOGLOBIN A1C 8.7 % (4.8-5.6)
[2021-06-30] MEDS: HYDROcodone/APAP 5/325MG 1 TAB TABLET PO PRN (02:45)
[2021-06-30 03:00] VITALS: BP 170/72
[2021-06-30] MEDS: MIDODRINE 2.5 MG TABLET PO SCH ×2 (05:50→13:00)
[2021-06-30] MEDS: PANTOPRAZOLE 40 MG TABLET.DR. PO SCH (05:51)
[2021-06-30 07:00] VITALS: BP 177/85
[2021-06-30] MEDS: INSULIN LISPRO 300 UNITS/3 ML VIAL. SQ SCH ×2 (07:30→11:30)
[2021-06-30] MEDS: FERROUS SULFATE 325 MG TABLET. PO SCH (08:51)
[2021-06-30] MEDS: metFORMIN 500 MG TABLET PO SCH (08:53)
[2021-06-30] MEDS: ACETAMINOPHEN 325 MG TABLET. PO PRN (08:53)
--- NOTE | 2021-06-30 09:28 | PDOC ---
PROGRESS NOTES Date of Service: DATE: 06/30/21 TIME: 09:27 Subjective Subjective feeling good ,ready to go home today Objective Objective Vital Signs Date Time Temp Pulse Resp B/P (MAP) Pulse Ox O2 Delivery O2 Flow Rate FiO2 06/30/21 05:50 86 161/69 06/30/21 03:15 18 98 Room Air 06/30/21 03:00 98.1 98.1 Intake and Output 06/30/21 07:00 Intake Total 950 ml Output Total 500 ml Balance 450 ml Intake Oral 950 ml Output Urine Total 500 ml # Voids 5 Physical Exam Abdomen: Soft Heart: Regular rate, Normal S1, Normal S2 Extremities: No clubbing General: Alert HEENT: Atraumatic Lungs: Clear to auscultation MUSCULOSKELETAL: No swelling, Osteoarthritic changes both hands Neck: Supple Neuro: Normal speech Psych/Mental Status: Mental status NL Skin: No breakdown Diagnosis Problem List Problems Medical Problems: (1) Hyperglycemia Status: Acute (2) Occipital scalp laceration Status: Acute (3) Syncope Status: Acute Assessment Assessment 1. Syncope, due to anemia hb 6.8.from prior upper GI bleeding recently 2. History of moderate aortic stenosis. 3. Dehydration. 4. Diabetes mellitus type 2, not controlled. 5. Hypertension. The patient does not have any orthostatic hypotension. 6. Osteoarthritis. PLAN: IV iron infusion today 200 mg transfused 2 u prbc , hb 8,[address] head -ve echo today D/c home today Plan Plan of Care Problems Medical Problems: (1) Hyperglycemia Status: Acute (2) Occipital scalp laceration Status: Acute (3) Syncope Status: Acute Comment Review of Relevant I have reviewed the following items kota (where applicable) has been applied. Labs Laboratory Tests Test 06/29/21 12:07 06/29/21 16:52 06/29/21 21:18 06/30/21 08:07 Glucose (Fingerstick) 158 mg/dL (70-99) 242 mg/dL (70-99) 121 mg/dL (70-99) 124 mg/dL (70-99) Medications Current Medications Iron Sucrose 200 mg/Sodium Chloride 110 ml @ 55 mls/hr 1X ONCE IV ; Start 06/30/21 at 10:00; Stop 06/30/21 at 11:59 Midodrine (Proamatine) 2.5 mg [id number] PO Last administered on 06/29/21at 17:25; Start 06/29/21 at 18:00 Vitals/I & O Vital Sign - Last 24 Hours 06/29/21 06/29/21 06/29/21 06/29/21 11:00 15:00 17:25 19:00 Temp 98.5 98.6 98.4 98.5 98.6 98.4 Pulse 92 92 92 85 Resp 18 18 20 B/P (MAP) 123/54 (77) 126/61 (82) 126/61 156/57 (90) Pulse Ox 93 91 97 O2 Delivery Room Air 06/29/21 06/29/21 06/29/21 06/29/21 20:00 20:00 20:30 22:39 Temp 98.1 98.1 Pulse 89 Resp 18 18 18 B/P (MAP) 142/67 (92) 138/66 (90) 129/63 (85) Pulse Ox 91 91 98 O2 Delivery Room Air Room Air Room Air Room Air 06/30/21 06/30/21 06/30/21 06/30/21 02:45 03:00 03:15 05:50 Temp 98.1 98.1 Pulse 85 86 Resp 18 20 18 B/P (MAP) 170/72 (104) 161/69 Pulse Ox 98 94 98 O2 Delivery Room Air Room Air Room Air Intake and Output 06/29/21 06/29/21 06/30/21 15:00 23:00 07:00 Intake Total 360 ml 590 ml Output Total 500 ml Balance 360 ml 90 ml Justifications for Admission Other Justification EULOGIO BAKER MD Jun 30, 2021 09:28
[2021-06-30] MEDS ORDERED: PANT40TA77 PO (09:31)
[2021-06-30] MEDS ORDERED: FERR325T72 PO (09:31)
[2021-06-30] MEDS ORDERED: IRON SUCROSE COMPLEX 200 MG in IV NORMAL SALINE 100ML 100 ML IV ONE (10:00)
[2021-06-30] MEDS ORDERED: LOPERAMIDE 2 MG CAPSULE PO PRN (10:15)
[2021-06-30] MEDS: IV NORMAL SALINE 1000ML BAG 1,000 ML IV SCH (10:20)
--- NOTE | 2021-06-30 10:40 | PDOC ---
Date of Service: DATE: 06/30/21 TIME: 10:37 Subjective: Subjective: Feels better, gets to go home today. Says iron is giving her diarrhea - had three stools today - first normal, second two loose/watery. Wants Imodium - nurse present - gave okay to try. Plan is to discharge after IV iron (though can't see this ordered?) Objective: Vital Signs: Vital Signs Date Time Temp Pulse Resp B/P (MAP) Pulse Ox O2 Delivery O2 Flow Rate FiO2 06/30/21 07:00 98.0 87 17 177/85 (115) 97 Room Air 98.0 Labs: Laboratory Tests Test 06/29/21 12:07 06/29/21 16:52 06/29/21 21:18 06/30/21 08:07 Glucose (Fingerstick) 158 mg/dL 242 mg/dL 121 mg/dL 124 mg/dL PE: GEN: NAD LUNGS: CTAB HEART: RRR ABD: NABS, S/ND/NT NEURO/PSYCH: A & O 3 A/P: CASIMIRO H/o PUD Diarrhea -- Dc per primary on PPI and iron in some form. Follow-up for EGD and colonoscopy - our office will contact. Monitor diarrhea - unlikely related to iron which most often causes constipation. Justicifation of Admission Dx: Justifications for Admission: Justification of Admission Dx: N/A DULCE JUDGE Jun 30, 2021 10:40
[2021-06-30 10:54] LABS: FECAL OB PT NEGATIVE (NEG)
[2021-06-30 11:00] VITALS: BP 116/61
--- NOTE | 2021-06-30 11:23 | NUR ---
SS following for discharge planning. SS reviewed pt chart and discussed with pt RN. Pt is currently on room air. COVID19 negative. PT/OT recommended home. Discharge order on the chart for home with self care.
--- NOTE | 2021-06-30 11:42 | PDOC ---
CARDIO Progress Notes Date and Time Date of Service 06/30/21 Time of Evaluation 1140 Subjective Subjective: No Chest Pain, No shortness of breath, No Palpitations, No Dizziness, Other (feeling better today ) Vitals Vitals Vital Signs Date Time Temp Pulse Resp B/P (MAP) Pulse Ox O2 Delivery O2 Flow Rate FiO2 06/30/21 07:00 98.0 87 17 177/85 (115) 97 Room Air 98.0 Weight Weight [ ] Input and Output Intake and Output Intake and Output 06/30/21 07:00 Intake Total 950 ml Output Total 500 ml Balance 450 ml Intake Oral 950 ml Output Urine Total 500 ml # Voids 5 Laboratory Labs Laboratory Tests Test 06/29/21 12:07 06/29/21 16:52 06/29/21 21:18 06/30/21 08:07 Glucose (Fingerstick) 158 mg/dL (70-99) 242 mg/dL (70-99) 121 mg/dL (70-99) 124 mg/dL (70-99) Test 06/30/21 09:25 06/30/21 11:38 Stool Occult Blood Negative (NEG) Glucose (Fingerstick) 197 mg/dL (70-99) Physical Exam HEENT: Neck Supple W Full Motion Chest: Symmetric LUNGS: Clear to Auscultation Heart: RRR Abdomen: Soft N/T Extremities: No Edema Neurology: alert, oriented, follow commands Assessment Assessment 1. Syncope: Likely vasovagal. No arrhythmias on tele. Blood pressure remains low end. s/p IVFs. Echo with preserved LV systolic function with moderate LVH and moderate aortic regurgitation. Ortho's + yesterday morning. Now hypertensive on Midodrine 2. Hyperlipidemia; statin 3. Diabetes, II 4. Anemia; no obvious bleeding. s/p transfusion 5. Hypomagnesemia; replaced 6. H/o CVA Recommendations Discontinue midodrine Home monitoring of blood pressure. Allow for higher baseline pressure due to orthostasis Changes positions slowly LE compression stockings. Supportive care Follow up in our office with Dr. Rodrigues as scheduled Justicifation of Admission Dx: Justifications for Admission: Justification of Admission Dx: N/A SAUMYA ALVAREZ APRN Jun 30, 2021 11:42
--- NOTE | 2021-06-30 12:35 | PDOC ---
PROGRESS NOTES Date of Service DATE: 06/30/21 TIME: 12:33 Assessment Problems Medical Problems: (1) Hyperglycemia Status: Acute (2) Occipital scalp laceration Status: Acute (3) Syncope Status: Acute Orthostatic hypotension as recorded on vital signs 06/28, blood pressure fell 28 points, a manifestation most likely of diabetic neuropathy She does have peripheral neuropathy from diabetes as well Essential tremor, none on exam now, no evidence of Parkinson's or multiple system atrophy Also was severely anemic Plan Okay for discharge Regulate blood pressure Physical therapy No treatment for essential tremor required at this point Subjective Feels much better, wants to go home Objective Vital Signs Date Time Temp Pulse Resp B/P (MAP) Pulse Ox O2 Delivery O2 Flow Rate FiO2 06/30/21 11:00 98.1 96 18 116/61 (79) 93 Room Air 98.1 Intake and Output 06/30/21 07:00 Intake Total 950 ml Output Total 500 ml Balance 450 ml Intake Oral 950 ml Output Urine Total 500 ml # Voids 5 PHYSICAL EXAM Alert. Oriented to time, place and person. PERRL. EOMI. CN: no focal findings. Muscle tone: normal. Muscle strength: 5/5 DTR: 1+ Plantar reflex: Flexor Gait: not examined in bed. Sensory exam: Stocking loss. No cerebellar signs elicited. Review of Relevant I have reviewed the following items kota (where applicable) has been applied. Labs Laboratory Tests Test 06/28/21 16:32 06/28/21 19:27 06/29/21 06:35 06/29/21 07:55 Glucose (Fingerstick) 192 mg/dL (70-99) 207 mg/dL (70-99) 121 mg/dL (70-99) White Blood Count 6.5 x10^3/uL (4.0-11.0) Red Blood Count 2.98 x10^6/uL (3.50-5.40) Hemoglobin 8.6 g/dL (12.0-15.5) Hematocrit 25.0 % (36.0-47.0) Mean Corpuscular Volume 84 fL (79-100) Mean Corpuscular Hemoglobin 29 pg (25-35) Mean Corpuscular Hemoglobin Concent 35 g/dL (31-37) Red Cell Distribution Width 15.3 % (11.5-14.5) Platelet Count 110 x10^3/uL (140-400) Neutrophils (%) (Auto) 61 % (31-73) Lymphocytes (%) (Auto) 29 % (24-48) Monocytes (%) (Auto) 6 % (0-9) Eosinophils (%) (Auto) 4 % (0-3) Basophils (%) (Auto) 1 % (0-3) Neutrophils # (Auto) 3.9 x10^3/uL (1.8-7.7) Lymphocytes # (Auto) 1.8 x10^3/uL (1.0-4.8) Monocytes # (Auto) 0.4 x10^3/uL (0.0-1.1) Eosinophils # (Auto) 0.3 x10^3/uL (0.0-0.7) Basophils # (Auto) 0.0 x10^3/uL (0.0-0.2) Prothrombin Time 14.4 SEC (11.7-14.0) Prothromb Time International Ratio 1.1 (0.8-1.1) Sodium Level 139 mmol/L (136-145) Potassium Level 4.0 mmol/L (3.5-5.1) Chloride Level 106 mmol/L (98-107) Carbon Dioxide Level 27 mmol/L (21-32) Anion Gap 6 (6-14) Blood Urea Nitrogen 17 mg/dL (7-20) Creatinine 0.6 mg/dL (0.6-1.0) Estimated GFR (Cockcroft-Gault) 100.0 Glucose Level 137 mg/dL (70-99) Hemoglobin A1c 8.7 % (4.8-5.6) Calcium Level 7.7 mg/dL (8.5-10.1) Magnesium Level 1.6 mg/dL (1.8-2.4) Ferritin 27 ng/mL (8-252) Vitamin B12 Level > 2000 pg/mL (247-911) Thyroid Stimulating Hormone (TSH) 1.658 uIU/mL (0.358-3.74) Test 06/29/21 12:07 06/29/21 16:52 06/29/21 21:18 06/30/21 08:07 Glucose (Fingerstick) 158 mg/dL (70-99) 242 mg/dL (70-99) 121 mg/dL (70-99) 124 mg/dL (70-99) Test 06/30/21 09:25 06/30/21 11:38 Stool Occult Blood Negative (NEG) Glucose (Fingerstick) 197 mg/dL (70-99) Laboratory Tests Test 06/29/21 16:52 06/29/21 21:18 06/30/21 08:07 06/30/21 09:25 Glucose (Fingerstick) 242 mg/dL (70-99) 121 mg/dL (70-99) 124 mg/dL (70-99) Stool Occult Blood Negative (NEG) Test 06/30/21 11:38 Glucose (Fingerstick) 197 mg/dL (70-99) Medications Current Medications Sodium Chloride 1,000 ml @ 1,000 mls/hr 1X ONCE IV Last administered on 06/27/21at 05:31; Start 06/27/21 at 04:45; Stop 06/27/21 at 05:44; Status DC Ondansetron HCl (Zofran) 4 mg 1X ONCE IVP Last administered on 06/27/21at 05:3 1; Start 06/27/21 at 05:00; Stop 06/27/21 at 05:01; Status DC Acetaminophen (Tylenol) 500 mg 1X ONCE PO Last administered on 06/27/21at 07:55; Start 06/27/21 at 06:45; Stop 06/27/21 at 06:47; Status DC Insulin Human Regular (HumuLIN R VIAL) 10 unit 1X ONCE SQ ; Start 06/27/21 at 08:30; Stop 06/27/21 at 08:53; Status DC Ondansetron HCl (Zofran) 4 mg PRN Q8HRS PRN IVP NAUSEA/VOMITING; Start 06/27/21 at 08:30; Stop 06/28/21 at 08:29; Status DC Acetaminophen (Tylenol) 650 mg PRN Q4HRS PRN PO FEVER > 100.3'F; Start 06/27/21 at 08:30; Stop 06/28/21 at 08:29; Status DC Insulin Human Lispro (HumaLOG) 0-5 UNITS TIDWMEALS SQ Last administered on 06/27/21at 18:02; Start 06/27/21 at 12:00; Stop 06/28/21 at 08:47; Status DC Dextrose (Dextrose 50%-Water Syringe) 12.5 gm PRN Q15MIN PRN IV SEE COMMENTS; Start 06/27/21 at 08:45 Aspirin (Ecotrin) 325 mg 1X ONCE PO Last administered on 06/27/21at 09:44; Start 06/27/21 at 08:45; Stop 06/27/21 at 08:53; Status DC Sodium Chloride 1,000 ml @ 100 mls/hr 1X ONCE IV Last administered on 06/27/21at 09:48; Start 06/27/21 at 08:45; Stop 06/27/21 at 18:44; Status DC Aspirin (Aspirin Chewable) 81 mg DAILY PO ; Start 06/27/21 at 12:00; Stop 06/28/21 at 09:58; Status DC Atorvastatin Calcium (Lipitor) 40 mg QHS PO Last administered on 06/29/21at 20:00; Start 06/27/21 at 21:00 Dicyclomine HCl (Bentyl) 10 mg PRN Q6HRS PRN PO PAIN Last administered on 06/29/21at 20:00; Start 06/27/21 at 10:15 Estrogens Conjugated (Premarin) 0.625 mg DAILY PO ; Start 06/28/21 at 09:00; Status Cancel Acetaminophen/ Hydrocodone Bitart (Lortab 5/325) 1 tab PRN Q6HRS PRN PO SEVERE PAIN 7-10 Last administered on 06/30/21at 02:45; Start 06/27/21 at 10:15 Metformin HCl (Glucophage) 1,000 mg BIDWMEALS PO Last administered on 06/30/21at 08:53; Start 06/27/21 at 12:00 Insulin Glargine (Lantus Syringe) 15 unit HS SQ Last administered on 06/27/21at 21:10; Start 06/27/21 at 21:00; Stop 06/28/21 at 08:45; Status DC Acetaminophen (Tylenol) 650 mg PRN Q6HRS PRN PO MILD PAIN / TEMP > 100.3'F Last administered on 06/30/21at 08:53; Start 06/27/21 at 10:15 Pantoprazole Sodium (Protonix) 40 mg DAILYAC PO Last administered on 06/30/21at 05:51; Start 06/27/21 at 11:30 Sodium Chloride 1,000 ml @ 75 mls/hr [id number] IV Last administered on 06/29/21at 20:00; Start 06/27/21 at 10:15 Heparin Sodium (Porcine) (Heparin Sodium) 5,000 unit Q12HR SQ Last administered on 06/27/21at 20:57; Start 06/27/21 at 11:00; Stop 06/28/21 at 09:58; Status DC Meclizine HCl (Antivert) 25 mg PRN Q6HRS PRN PO DIZZINESS Last administered on 06/29/21at 20:00; Start 06/27/21 at 12:45 Insulin Glargine (Lantus Syringe) 20 unit HS SQ Last administered on 06/29/21at 21:20; Start 06/28/21 at 21:00 Insulin Human Lispro (HumaLOG) 0-20 UNITS TIDBFRMEAL SQ Last administered on 06/29/21at 17:28; Start 06/28/21 at 11:30 Magnesium Sulfate 50 ml @ 25 mls/hr 1X ONCE IV Last administered on 06/28/21at 13:47; Start 06/28/21 at 12:45; Stop 06/28/21 at 14:44; Status DC Insulin Glargine (Lantus Syringe) 15 unit STK-MED ONCE SQ ; Start 06/27/21 at 21:00; Stop 06/28/21 at 13:57; Status DC Ferrous Sulfate (Feosol) 325 mg BIDWMEALS PO Last administered on 06/30/21at 08:51; Start 06/28/21 at 17:00 Midodrine (Proamatine) 2.5 mg [id number] PO Last administered on 06/29/21at 17:25; Start 06/29/21 at 18:00 Iron Sucrose 200 mg/Sodium Chloride 110 ml @ 55 mls/hr 1X ONCE IV Last administered on 06/30/21at 10:42; Start 06/30/21 at 10:00; Stop 06/30/21 at 11:59; Status DC Loperamide HCl (Imodium) 2 mg PRN Q15MIN PRN PO DIARRHEA Last administered on 06/30/21at 10:42; Start 06/30/21 at 10:15 Active Scripts Active Feosol (Ferrous Sulfate) 325 Mg Tablet 325 Mg PO BIDWMEALS 90 Days Pantoprazole Sodium (Pantoprazole Sodium) 40 Mg Tablet.dr 40 Mg PO DAILYAC 90 Days Reported Hair, Skin & Nails (Multivitamin With Minerals) 1 Each Tablet 1 Each PO DAILY Coq-10 (Ubidecarenone) 100 Mg Capsule 100 Mg PO DAILY Levemir (Insulin Detemir) 100 Unit/1 Ml Vial 22 Unit SQ HS Gabapentin 100 Mg Capsule 1 Cap PO DAILY Prozac (Fluoxetine Hcl) 20 Mg Capsule 1 Cap PO DAILYWBKFT Aspirin 81 Mg Tab.chew 1 Tab PO DAILY Metformin Hcl 500 Mg Tablet 2 Tab PO BID Atorvastatin Calcium 40 Mg Tablet 1 Tab PO DAILY Vitals/I & O Vital Sign - Last 24 Hours 06/29/21 06/29/21 06/29/21 06/29/21 15:00 17:25 19:00 20:00 Temp 98.6 98.4 98.6 98.4 Pulse 92 92 85 Resp 18 20 B/P (MAP) 126/61 (82) 126/61 156/57 (90) Pulse Ox 91 97 O2 Delivery Room Air Room Air 06/29/21 06/29/21 06/29/21 06/30/21 20:00 20:30 22:39 02:45 Temp 98.1 98.1 Pulse 89 Resp 18 18 18 18 B/P (MAP) 142/67 (92) 138/66 (90) 129/63 (85) Pulse Ox 91 91 98 98 O2 Delivery Room Air Room Air Room Air Room Air 06/30/21 06/30/21 06/30/21 06/30/21 03:00 03:15 05:50 07:00 Temp 98.1 98.0 98.1 98.0 Pulse 85 86 87 Resp 20 18 17 B/P (MAP) 170/72 (104) 161/69 177/85 (115) Pulse Ox 94 98 97 O2 Delivery Room Air Room Air Room Air 06/30/21 11:00 Temp 98.1 98.1 Pulse 96 Resp 18 B/P (MAP) 116/61 (79) Pulse Ox 93 O2 Delivery Room Air Intake and Output 06/29/21 06/29/21 06/30/21 15:00 23:00 07:00 Intake Total 360 ml 590 ml Output Total 500 ml Balance 360 ml 90 ml Justicifation of Admission Dx: Justifications for Admission: Justification of Admission Dx: N/A FELICIANO GEORGES MD Jun 30, 2021 12:35
--- NOTE | 2021-06-30 15:46 | NUR ---
patient discharged home with family. meds and follow up reviewed. patient voiced understanding. IV removed intact. patient stable upon DC
--- NOTE | 2021-07-03 10:57 | PDOC ---
Provider Note Date of Service: DATE: 07/03/21 TIME: 10:57 Provider Note Discharge summary dictated.#[id number]. Justifications for Admission Other Justification EULOGIO BAKER MD Jul 03, 2021 10:57
--- NOTE | 2021-07-03 11:54 | DS ---
DATE OF DISCHARGE: 06/30/2021 REASON FOR ADMISSION TO THE HOSPITAL: 1. Syncope, hit her head. She had one staple placed. 2. Anemia and possible recent gastrointestinal bleed causing the problems. HISTORY OF PRESENT ILLNESS: The patient is a 66-year-old female. The patient had a syncopal episode, hit her head to the corner of a dresser. She had a laceration, stapled was placed. CT scan of the head was negative and was admitted to the hospital, seen by Cardiology and Neurology. Neurology does not think any seizure. Cardiology workup, echo and monitor with left ventricular function, mild aortic stenosis. The patient's hemoglobin dropped down to 6.2 from 9.3. The patient was in the hospital a month ago at [facility] for upper GI bleed and Gastroenterology was consulted. They believe that it could be residual from the bleeding or anemia. The patient was given 2 units of packed RBC and iron transfusion. The patient's condition, feeling better. No more dizziness and she was discharged. FINAL DIAGNOSES: 1. Syncopal episode, probably secondary to anemia. 2. Anemia secondary to recent GI bleed, was admitted to [facility] a month ago, had laparscopic surgery done and otherwise the patient remained stable and she was discharged. JAGJIT/CHERYL DR: Mario TID: [id number]
== END 2021-06-30 14:30 | disposition home or self-care (01) | DRG 812 ==
LOC: ER 04:22 → 5 SOUTH 08:35
PROVIDERS: ADMIT Internal Medicine; ATTEND Internal Medicine
PROC: 0HQ0XZZ Repair Scalp Skin, External Approach (ICD-10-PCS; principal; 2021-06-27)
PROC: 30233N1 Transfusion of Nonautologous Red Blood Cells into Peripheral Vein, Percutaneous Approach (ICD-10-PCS; 2021-06-28)
DX: D64.9 Anemia, unspecified (principal); I95.1 Orthostatic hypotension; S01.01XA Laceration without foreign body of scalp, initial encounter; E11.42 Type 2 diabetes mellitus with diabetic polyneuropathy; C44.90 Unspecified malignant neoplasm of skin, unspecified; E11.65 Type 2 diabetes mellitus with hyperglycemia; E78.5 Hyperlipidemia, unspecified; E83.42 Hypomagnesemia; E86.0 Dehydration; I10 Essential (primary) hypertension; I35.2 Nonrheumatic aortic (valve) stenosis with insufficiency; K57.90 Diverticulosis of intestine, part unspecified, without perforation or abscess without bleeding; M19.90 Unspecified osteoarthritis, unspecified site; W19.XXXA Unspecified fall, initial encounter; W22.03XA Walked into furniture, initial encounter; Z79.84 Long term (current) use of oral hypoglycemic drugs; Z85.828 Personal history of other malignant neoplasm of skin; Z86.73 Personal history of transient ischemic attack (TIA), and cerebral infarction without residual deficits; Z87.11 Personal history of peptic ulcer disease; Z90.49 Acquired absence of other specified parts of digestive tract; Z90.710 Acquired absence of both cervix and uterus; F32.A Depression, unspecified; Y93.89 Activity, other specified; Y92.89 Other specified places as the place of occurrence of the external cause; Y99.8 Other external cause status
CPT/HCPCS: 12001; 36415; 70450; 71045; 80048; 80053; 81001; 82274; 82607; 82728; 82962; 83036; 83540; 83550; 83735; 83880; 84443; 84484; 85025; 85610; 86850; 86870; 86900; 86901; 86920; 87426; 93306; 93880; 96361; 96374; J1644; J1756; J1815; J2405; J3475; J7030; P9016; U0003; U0005; 97530-GP; 99285-25; G0378; J8597

== ENCOUNTER → 2021-07-26 | Day surgery (SDC) | payer OTHER ==
[~2021-07-26] VITALS: Ht 160 cm; Wt 99.2 kg
[~2021-07-26] MED LIST changes: +BIOT10004 PO; +FERR325T72 PO; +FLUO20CA16 PO; +GABA100C6 PO; +INSU100V13 SQ; +IV RINGERS,LACTATED 1000ML 1,000 ML IV SCH; +MULT-684 PO; +PANT40TA77 PO; +PROPOFOL 10 MG/ML (20ML) VIAL. IV ONE; +UBID100C26 PO
[2021-07-26 12:07] VITALS: BP 125/69
--- NOTE | 2021-07-26 13:12 | PDOC4 ---
PROCEDURE Procedure EGD with biopsies/attempted colonoscopy. Indication: CASIMIRO/abd pain/CRC screening Meds: per anesthesia Findings: E--Less than grade A esophagitis (on PPI) at 38cm. G--5x12mm ulcer superior to pylorus; biopsies x 6 from rim. D--Normal to second portion; biopsied 2nd portion. NIDA--normal --'Scope advanced only to distal sigmoid. Poor prep and could not see. Further attempts abandoned. Richar. well. IMP: Mild esophagitis. Gastric ulcer, biopsied. REC: F/u biopsies. Go to BID on PPI. See me in 2 weeks. Resume diet, meds as before. SHANNON SOTO MD Jul 26, 2021 13:12
[2021-07-26 13:27] VITALS: BP 117/74
--- NOTE | 2021-07-27 15:13 | PATHOLOGY ---
[facility] Accession Number: [id number] . 01 Material submitted: . PART A: stomach - STOMACH ULCER BIOPSY PART B: duodenum - DUODENAL BIOPSY . 01 Clinical history: . GI BLEED EGD, COLONOSCOPY INFLAMMATION . 02 Diagnosis: A. Gastric biopsies, gastric ulcer: - Reactive gastropathy with mild chronic inflammation, and segments of acute inflammatory exudate consistent with ulcer. . B. Duodenal biopsy: - No diagnostic abnormalities. . (JPM:sampson; 07/27/2021) [facility] 07/27/2021 1458 Local . 02 Comment: Sections of the gastric biopsy reveal segments of gastric antral mucosa, gastric foveolar epithelium, and acute inflammatory exudate consistent with ulcer. The intact gastric antral mucosa shows congestion, foveolar hyperplasia, and mild chronic inflammation. A properly controlled immunoperoxidase stain for Helicobacter is negative for Helicobacter organisms. The findings are consistent with a reactive gastropathy. . Sections of the duodenal biopsy reveal a small segment of small intestine mucosa. Where best oriented, the mucosal villi show no sprue-like changes or significant inflammatory changes. . (JPM:sampson; 07/27/2021) . . Special stain performed: Immunoperoxidase stain for Helicobacter on A1 . 02 Electronically signed: . Lakhwinder Sharp MD, Pathologist NPI- [id number] . 01 Gross description: . A. The specimen is received in formalin, labeled "Verito Ha, stomach ulcer". Received are multiple segments of pale webber tissue ranging in size from 0.2 cm to 0.4 cm in maximum dimensions. The specimen is submitted entirely in cassette A1. . B. The specimen is received in formalin, labeled "Verito Ha, duodenal BX". Received is a segment of pale webber tissue measuring 0.3 cm in maximum dimensions. The specimen is submitted entirely in cassette B1.([facility]; 07/26/2021) [facility] 07/26/2021 1818 [facility] . 02 Pathologist provided ICD-10: K31.9, K29.50, Z12.11 . 02 CPT . 966394, 278245, [id number] Specimen Comment: A courtesy copy of this report has been sent to [phone], [phone] Specimen Comment: [id number], , Specimen Comment: Report sent to , DR BAKER, DR CARL / Specimen Comment: DR BUSTAMANTE Specimen Comment: A duplicate report has been generated due to demographic updates. Performed at: [facility] [address], [place] [id number] MD Blake Cerna MD Phone: [phone] Performed at: [facility] [address], [place] [id number] MD Lakhwinder Sharp MD Phone: [phone]
== END | disposition home or self-care (01) ==
LOC: ENDOS 10:24
PROVIDERS: ATTEND Internal Medicine Gastroenterology
DX: D50.9 Iron deficiency anemia, unspecified (principal); R10.13 Epigastric pain; K29.50 Unspecified chronic gastritis without bleeding; K21.00 Gastro-esophageal reflux disease with esophagitis, without bleeding; K63.89 Other specified diseases of intestine; K31.89 Other diseases of stomach and duodenum; R07.9 Chest pain, unspecified; K25.9 Gastric ulcer, unspecified as acute or chronic, without hemorrhage or perforation; E11.9 Type 2 diabetes mellitus without complications; F32.9 Major depressive disorder, single episode, unspecified; M19.90 Unspecified osteoarthritis, unspecified site; I10 Essential (primary) hypertension; Z85.828 Personal history of other malignant neoplasm of skin; Z90.49 Acquired absence of other specified parts of digestive tract; Z90.710 Acquired absence of both cervix and uterus; Z98.51 Tubal ligation status; Z98.890 Other specified postprocedural states; Z79.82 Long term (current) use of aspirin; Z79.84 Long term (current) use of oral hypoglycemic drugs; Z79.899 Other long term (current) drug therapy; Z88.6 Allergy status to analgesic agent
CPT/HCPCS: 43239; 45378; 82962; 88305; 88342; J2704